=== PATIENT | female | born 1995 | race Caucasian/White ===

== ENCOUNTER 2020-06-30 08:06 | Emergency (ER) | payer OTHER, SELFPAY ==
[2020-06-30 08:20] VITALS: BP 130/66; PULSE 96; RESP 16; TEMP 37.1; O2SAT 100
--- NOTE | 2020-06-30 08:23 | ED.GENADULT ---
HPI - General Adult General Chief complaint: Urogenital-Female Stated complaint: Blood in Urine Time Seen by Provider: 06/30/20 08:24 Source: patient and RN notes reviewed Mode of arrival: ambulatory Limitations: no limitations History of Present Illness HPI narrative: 25-year-old female presents with urinary complaints for 1 day. Dysuria consist of hematuria, hesitation, burning, frequency, and urgency.? No treatment.? Denies fever or chills. No significant pelvic pain. No vaginal discharge.? No concerns for STDs. Exacerbating factors urinating.? Denies or vaginal bleeding. Concerned she might be , LMP 06/07/20. No flank pain. Denies nausea, vomiting, and abdominal pain.? Tolerating liquids well.? Remains active. The patient reports she have not been diagnosed with COVID-19. The patient reports she is not waiting for the results of a COVID-19 lab test. The patient reports she do not have fever, chills, weakness, or fatigue. The patient reports she do not have a new or worsening cough or shortness of breath. Denies chest pain. The patient reports she do not have any rhinorrhea, congestion, sore throat, loss of taste, and diarrhea. Denies recent traveling. Denies concerns for COVID-19 or exposures been home with limited outdoor exposure except for essential household needs and return home. At this time, patient is not suspected of having COVID-19. Some parts of this dictation were generated by voice recognition software and may contain typographical and/or grammatical inaccuracies. Related Data Allergies Allergy/AdvReac Type Severity Reaction Status Date / Time clavulanic acid Allergy Mild HIVES Verified 06/30/20 08:24 Penicillins Allergy Mild HIVES Verified 06/30/20 08:24 amoxicillin Allergy Unknown hives Verified 06/30/20 08:24 Review of Systems Review of Systems: Narrative: CONSTITUTIONAL: Denies fever, chills, sweats. EYES: Denies visual changes, redness, discharge. ENT: Denies rhinorrhea, congestion, sore throat, otalgia. CARDIOVASCULAR: Denies chest pain, palpitations, edema. RESPIRATORY: Denies dyspnea, wheezing, cough. GASTROINTESTINAL: Denies abdominal pain, nausea, vomiting, diarrhea. GENITOURINARY: Complains of dysuria (hesitation, burning, frequency, and urgency), hematuria. Denies abnormal discharge. SKIN: Denies rash or itching. MUSCULOSKELETAL: Denies acute back pain, joint pain, or myalgia. NEUROLOGIC: Denies numbness or focal weakness. PSYCHIATRIC: Denies anxiety or depression. All systems reviewed & are unremarkable except as noted in HPI and below. [facility] Past Medical History Medical History (Updated 06/30/20 @ 08:52 by POLOL Daily) Pyelonephritis UTI (urinary tract infection) Surgical History Surgical History (Updated 06/30/20 @ 08:33 by POLLO Daily) History of adenoidectomy History of tonsillectomy Family History Family History (Updated 06/30/20 @ 08:33 by POLLO Daily) Father Diabetes mellitus Mother Alive and well Social History Social History (Updated 06/30/20 @ 08:34 by POLLO Daily) Smoking status: Never smoker Tobacco type: cigarettes Second hand tobacco smoke exposure: Yes Alcohol intake: never Substance use: never Living arrangements: with family Occupation/Education: unemployed Gender identity (if verbalized by the patient): Female Sexual Orientation (if Verbalized by the Patient): Straight or Heterosexual Comments At time of signature, agree with nurse past medical, surgical, social, and family history.? There is no relevant family history pertinent to the presenting complaint. Exam Narrative: Exam Narrative: GENERAL: This is a well-nourished, well-developed patient, in no apparent distress.? Talks in full sentences and ambulates with steady gait without dyspnea. HEAD: normocephalic, atraumatic. EYES: PERRL. Sclera clear/white. Vision is grossly intact. CARDIOVASCULAR: Regular rate and rhythm
== END 2020-06-30 08:39 | disposition home or self-care (01) ==
PROVIDERS: Emergency Provider Nurse Practitioner Family; PCP Family Medicine
DX: R30.0 Dysuria (principal)
CPT/HCPCS: 81003; 81025; 87077; 87086; 87088; 99213; G0463

== ENCOUNTER 2021-03-24 15:48 | Emergency (ER) | payer OTHER, SELFPAY ==
[2021-03-24 16:10] VITALS: BP 133/80; PULSE 82; RESP 18; TEMP 37.4; O2SAT 100
--- NOTE | 2021-03-24 16:13 | ED.GENADULT ---
HPI - General Adult General Chief complaint: Urogenital-Female Stated complaint: pain when urinating Time Seen by Provider: 03/24/21 16:10 Source: patient and RN notes reviewed Mode of arrival: ambulatory Limitations: no limitations History of Present Illness HPI narrative: 25-year-old female presents with urinary complaints for the past 3 days. ?Phyllis reports recently returning from vacation after swimming and sitting around in a wet swimming suit, now has increasing urgency and burning with urination. ?Dysuria consists of burning, frequency, small amounts of urine, and urgency. ?Azo was taken last today at approximately noon without relief. ?Denies fever. ?No significant pelvic pain. ?No vaginal discharge.? No concerns for STDs. ?Exacerbating factors urinating.? Denies hematuria or vaginal bleeding. ?LMP February 20-, irregular. ?No flank pain. ?Denies nausea, vomiting, and abdominal pain.? Tolerating liquids well.? Remains active. ?The patient reports she has not been diagnosed with COVID-19. ?The patient reports she is not waiting for the results of a COVID-19 lab test. ?The patient reports he does not have chills, weakness, or fatigue. The patient reports he does not have a new or worsening cough or shortness of breath. ?Denies chest pain. ?The patient reports he does not have any rhinorrhea, congestion, loss of taste or smell, sore throat, and diarrhea. Denies recent traveling. ?Denies concerns for COVID-19 or exposures. ?At this time, the patient is not suspected of having COVID-19.?? Some parts of this dictation were generated by voice recognition software and may contain typographical and/or grammatical inaccuracies. Related Data Allergies Allergy/AdvReac Type Severity Reaction Status Date / Time amoxicillin Allergy Mild hives Verified 03/24/21 16:05 clavulanic acid Allergy Mild HIVES Verified 03/24/21 16:05 Review of Systems Review of Systems: Narrative: CONSTITUTIONAL: Denies fever, chills, sweats. EYES: Denies visual changes, redness, discharge. ENT: Denies rhinorrhea, congestion, sore throat, otalgia. CARDIOVASCULAR: Denies chest pain, palpitations, edema. RESPIRATORY: Denies dyspnea, wheezing, cough. GASTROINTESTINAL: Denies abdominal pain, nausea, vomiting, diarrhea. GENITOURINARY: Complains of dysuria (burning, frequency, small amount of urine, and urgency). Denies hematuria, abnormal discharge. SKIN: Denies rash or itching. MUSCULOSKELETAL: Denies acute back pain, joint pain, or myalgia. NEUROLOGIC: Denies numbness or focal weakness. PSYCHIATRIC: Denies anxiety or depression. All systems reviewed & are unremarkable except as noted in HPI and below. [facility] Past Medical History Medical History (Updated 03/24/21 @ 16:28 by POLLO Daily) History of PCOS Pyelonephritis UTI (urinary tract infection) Surgical History Surgical History (Updated 06/30/20 @ 08:33 by POLLO Daily) History of adenoidectomy History of tonsillectomy Family History Family History (Updated 06/30/20 @ 08:33 by POLLO Daily) Father Diabetes mellitus Mother Alive and well Social History Social History (Updated 03/24/21 @ 16:28 by POLLO Daily) Smoking status: Never smoker Tobacco type: cigarettes Second hand tobacco smoke exposure: Yes Alcohol intake: never Substance use: never Living arrangements: with family Occupation/Education: unemployed Gender identity (if verbalized by the patient): Female Sexual Orientation (if Verbalized by the Patient): Straight or Heterosexual Comments At time of signature, agree with the nurse past medical, surgical, social, and family history.? There is no relevant family history pertinent to the presenting complaint. Exam Narrative: Exam Narrative: GENERAL: This is a well-nourished, well-developed patient, in no apparent distress.? Talks in full sentences and ambulates with steady gait without dyspnea. HEAD: Normocephalic, atraumatic. EY
== END 2021-03-24 16:35 | disposition home or self-care (01) ==
PROVIDERS: Emergency Provider Nurse Practitioner Family
DX: R30.0 Dysuria (principal); Z87.440 Personal history of urinary (tract) infections; E28.2 Polycystic ovarian syndrome
CPT/HCPCS: 81003; 87086; 99213; G0463

== ENCOUNTER 2021-04-10 10:41 | Emergency (ER) | payer OTHER, SELFPAY ==
[2021-04-10 10:50] VITALS: BP 133/97; PULSE 119; RESP 18; TEMP 37; O2SAT 99
--- NOTE | 2021-04-10 11:03 | ED.URI ---
HPI - URI/Sore Throat General Chief Complaint: Upper Respiratory Infection Stated Complaint: Chills,Cough,Ear Pain History of Present Illness HPI Narrative: This is a 25 year old unvaccinated female that presents with sinus drainage and coughing states that symptoms started last night with coughing and yellow drainage. Patient states that she has taken some mucinex and tyelnol because she thought she had a fever last night. Patient denies any nausea, vomiting, and or diarrhea Related Data Allergies Allergy/AdvReac Type Severity Reaction Status Date / Time amoxicillin Allergy Mild hives Verified 04/10/21 10:53 clavulanic acid Allergy Mild HIVES Verified 04/10/21 10:53 Review of Systems Review of Systems: CONSTITUTIONAL: Denies fever, chills, or sweats. EYES: Denies visual changes, redness, or discharge. ENT: Reports rhinorrhea, congestion, sore throat, or otalgia. CARDIOVASCULAR:Denies chest pain, palpitations, or edema. RESPIRATORY: Reports cough or dyspnea. GASTROINTESTINAL: Denies abdominal pain, nausea, vomiting, or diarrhea. GENITOURINARY: Denies dysuria or hematuria. SKIN:[Denies rash or itching. MUSCULOSKELETAL:Denies back pain, joint pain, or myalgia. NEUROLOGIC: Denies headache, numbness, or weakness. PSYCHIATRIC:Denies anxiety or depression [facility] Past Medical History Medical History (Updated 04/10/21 @ 11:40 by Mary Robin NP) History of PCOS Pyelonephritis UTI (urinary tract infection) Surgical History Surgical History (Updated 06/30/20 @ 08:33 by POLLO Daily) History of adenoidectomy History of tonsillectomy Family History Family History (Updated 06/30/20 @ 08:33 by POLLO Daily) Father Diabetes mellitus Mother Alive and well Social History Social History (Updated 03/24/21 @ 16:28 by POLLO Daily) Smoking status: Never smoker Tobacco type: cigarettes Second hand tobacco smoke exposure: Yes Alcohol intake: never Substance use: never Gender identity (if verbalized by the patient): Female Comments At time as signature, I have reviewed and agree with nursing past medical, social, surgical and family history. Please see nursing chart for further information. There is no relevant family history pertinent to the presenting complaint. Exam Narrative: GENERAL:Well-appearing, well-nourished, and in no acute distress. HEAD:Normocephalic, atraumatic. EYES: PERRLA and EOMI. ENT: Nares clear, moderate rhinorrhea slight pharyngeal erythema. Mucous membranes moist. Enlarged tonsils bilaterally NECK: Supple. CHEST: Clear to auscultation. No respiratory distress. HEART: Regular rate and rhythm. Normal peripheral pulses. ABDOMEN: Soft, nontender, normal active bowel sounds. EXTREMITIES: Normal range of motion. No edema. SKIN: Warm, dry, no rash. NEURO: No focal deficits. Alert and oriented x3. Course Vital Signs Vital signs: Vital Signs Temperature 98.6 F 04/10/21 10:50 Pulse Rate 119 H 04/10/21 10:50 Respiratory Rate 18 04/10/21 10:50 Blood Pressure 133/97 H 04/10/21 10:50 Pulse Oximetry 99 04/10/21 10:50 Temperature 98.6 F 04/10/21 10:50 Pulse Rate 119 H 04/10/21 10:50 Respiratory Rate 18 04/10/21 10:50 Blood Pressure 133/97 H 04/10/21 10:50 Pulse Oximetry 99 04/10/21 10:50 MDM - URI/Sore Throat MDM Narrative Medical decision making narrative: negative strep Influenza negative Lab Data Labs: Influenza A Screen Negative Reference Range: Negative Influenza B Screen Negative Reference Range: Negative Strep Screen Presumptive Negative *(Reference Range: Negative)* Discharge Plan Discharge Clinical Impression: Shortness of breath Upper respiratory infection Qualifiers: URI type: unspecified viral URI Qualified C
== END 2021-04-10 11:49 | disposition home or self-care (01) ==
PROVIDERS: Emergency Provider Nurse Practitioner Family; PCP Family Medicine
DX: R06.02 Shortness of breath (principal); J06.9 Acute upper respiratory infection, unspecified; J02.9 Acute pharyngitis, unspecified; E28.2 Polycystic ovarian syndrome
CPT/HCPCS: 87081; 87804; 87880; 99213; G0463

== ENCOUNTER 2021-06-18 15:50 | Emergency (ER) | payer OTHER, SELFPAY ==
[2021-06-18 16:10] VITALS: BP 112/86; PULSE 85; RESP 16; TEMP 36.5; O2SAT 100
--- NOTE | 2021-06-18 16:39 | ED.FEMALEGU ---
HPI - Female Genitourinary General Chief complaint: Urogenital-Female Stated complaint: UTI Time Seen by Provider: 06/18/21 16:39 Source: patient Mode of arrival: ambulatory Limitations: no limitations History of Present Illness HPI Narrative: Bridget Lindsey is a 25-year-old female is complaining of dysuria started 1 week ago. 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 History of uti- 10 this year alone- does all the recommended uti preventive activities- discussed seeing a urologist for evaluation Related Data Allergies Allergy/AdvReac Type Severity Reaction Status Date / Time amoxicillin Allergy Mild hives Verified 06/18/21 16:54 clavulanic acid Allergy Mild HIVES Verified 06/18/21 16:54 Review of Systems Review of Systems: CONSTITUTIONAL: Denies fever, chills, sweats. EYES: Denies visual changes, redness, discharge. ENT: Denies rhinorrhea, congestion, sore throat, otalgia. CARDIOVASCULAR: Denies chest pain, palpitations, edema. RESPIRATORY: Denies dyspnea, wheezing, cough GASTROINTESTINAL: Denies abdominal pain, nausea, vomiting, diarrhea. GENITOURINARY: Has dysuria, hematuria, abnormal discharge SKIN: Denies rash or itching. NEUROLOGIC: Denies numbness, or focal weakness. PSYCHIATRIC: Denies anxiety or depression. PMFSH Past Medical History Medical History History of PCOS Pyelonephritis UTI (urinary tract infection) Surgical History Surgical History History of adenoidectomy History of tonsillectomy Family History Family History Father Diabetes mellitus Mother Alive and well Social History Social History (Updated 06/18/21 @ 16:40 by Daina Torre CNP) Smoking status: Never smoker Second hand tobacco smoke exposure: Yes Alcohol intake: never Substance use: never Gender identity (if verbalized by the patient): Female Sexual Orientation (if Verbalized by the Patient): Straight or Heterosexual Comments At time of signature, I agree with nursing past medical, surgical, social and family history. There is no relevant family history pertinent to the presenting complaint. Exam Narrative: GENERAL: This is a well-nourished, well-developed patient, in mild distress. HEAD: normocephalic, atraumatic. EYES: . Sclera clear/white. Vision is grossly intact. EARS: External ears normal. Hearing grossly intact. NOSE: External nose normal without nasal discharge, nares without redness, no rhinorrhea. THROAT: Mucous membranes moist, NECK: Neck supple, CARDIOVASCULAR: Regular rate and rhythm without murmurs, gallops, or rubs. RESPIRATORY: Clear to auscultation. Breath sounds equal bilaterally. No wheezes, rales, or rhonchi. GASTROINTESTINAL: Abdomen soft, states has random CVA pain in both sides SKIN: warm, intact with no suspicious lesions or rash, good texture and turgor. NEURO: awake, alert, and oriented to person, place and time. There were no obvious focal neurologic abnormalities. Steady gait EXTREMITIES: Normal range of motion. BACK: Nontender without deformity Course Course Emergency Course: Patient here for treatment of dysuriax 7 days - numerous UTIs in the past states she is had about 10 of them this year [place] Start on Keflex 500 mg 1 twice daily x5 days- referral to urology Vital Signs Vital signs: Vital Signs Temperature 97.7 F 06/18/21 16:10 Pulse Rate 85 06/18/21 16:10 Respiratory Rate 16 06/18/21 16:10 Blood Pressure 112/86 06/18/21 16:10 Pulse Oximetry 100 06/18/21 16:10 Temperature 97.7 F 06/18/21 16:10 Pulse Rate 85 06/18/21 16:10 Respiratory Rate 16 06/18/21 16:10 Blood Pressure 112/86 06/18/21 16:10 Pulse Oximetry 100 06/18/21 16:10 MDM - Female Genitourinary Differential Diagnosis Differential diagnosis: Likely urinary tract infection, cystitis and o
== END 2021-06-18 17:10 | disposition home or self-care (01) ==
PROVIDERS: Emergency Provider Nurse Practitioner
DX: R30.0 Dysuria (principal); E28.2 Polycystic ovarian syndrome
CPT/HCPCS: 81003; 87086; 87088; 99213; G0463

== ENCOUNTER 2021-08-12 12:45 | Emergency (ER) | payer OTHER, SELFPAY ==
[2021-08-12 12:54] VITALS: BP 131/79; PULSE 69; RESP 18; TEMP 37.1; O2SAT 100
--- NOTE | 2021-08-12 12:57 | ED.FEMALEGU ---
HPI - Female Genitourinary General Chief complaint: Urogenital-Female Stated complaint: UTI Time Seen by Provider: 08/12/21 12:57 Source: patient and RN notes reviewed Mode of arrival: ambulatory Limitations: no limitations History of Present Illness HPI Narrative: 26-year-old female presents to the [facility] with complaints of I think I have a UTI. Reports symptoms for the last 3 days. Reports multiple UTIs in the past. Had been seen at [facility] in March, April and June with similar symptoms and microbiology does not show any bacteria in her urine. Has not followed up with urology or primary. Denies possibility of an STD. Discussed previous microbiology reports with the patient. Discussed other possibilities to include but not limited to vaginal infection, interstitial cystitis. Patient denies any significant abdominal pain, nausea, vomiting or fevers. Last menstrual period was 30 July MD elicited complaint: UTI Related Data Allergies Allergy/AdvReac Type Severity Reaction Status Date / Time amoxicillin Allergy Mild hives Verified 08/12/21 12:52 clavulanic acid Allergy Mild HIVES Verified 08/12/21 12:52 Review of Systems Review of Systems: All systems reviewed & are unremarkable except as noted in HPI and below Constitutional: Constitutional: Reports no additional constitutional complaints, Denies chills and Denies fatigue Eyes: Eyes: Reports no additional eye complaints ENT: Reports system reviewed and no additional complaints, except as documented Cardiovascular: Cardiovascular: Reports no additional cardiovascular complaints and Denies chest pain Respiratory: Respiratory: Reports no additional respiratory complaints, Denies cough and Denies dyspnea Gastrointestinal: Gastrointestinal: Reports as per HPI, Reports abdominal pain (Pelvic cramping), Denies nausea and Denies vomiting Genitourinary: Genitourinary: Reports as per HPI and Reports dysuria Musculoskeletal: Musculoskeletal: Reports no additional musculoskeletal complaints Integumentary/Breasts: Skin/Breast: Reports system reviewed and no additional complaints, except as docu Neurologic: Reports system reviewed and no additional complaints, except as documented Psychiatric: Psychiatric: Reports no additional psychiatric complaints Allergic/Immunologic: Allergic/Immunologic: Reports no additional allergic/immunologic complaints [facility] Past Medical History Medical History History of PCOS Pyelonephritis UTI (urinary tract infection) Surgical History Surgical History History of adenoidectomy History of tonsillectomy Family History Family History Father Diabetes mellitus Mother Alive and well Social History Social History Smoking status: Never smoker Second hand tobacco smoke exposure: Yes Alcohol intake: never Substance use: never Gender identity (if verbalized by the patient): Female Sexual Orientation (if Verbalized by the Patient): Straight or Heterosexual Comments At the time of my signature, I reviewed and agree with the nursing past medical, surgical, social, and family history. There is no relevant family history pertinent to the patient complaint. Exam Const: General: healthy appearing, no acute distress and alert Nutritional Appearance: well nourished Orientation/consciousness: patient oriented x3 Limitations: no limitations HENMT: Head: normal to inspection Ears: external ears normal Eyes: Pupils: Equal, round and reactive pupils present Neck: Neck: normal visual inspection, no lymphadenopathy and no meningeal signs Chest: Chest palpation & inspection: normal inspection of the chest Resp: Effort & Inspection: normal respiratory effort and no use of accessory muscles Auscultation: clear to a
== END 2021-08-12 13:10 | disposition home or self-care (01) ==
PROVIDERS: Emergency Provider Nurse Practitioner; PCP Family Medicine
DX: R30.0 Dysuria (principal); E28.2 Polycystic ovarian syndrome
CPT/HCPCS: 81003; 87086; 99213; G0463

== ENCOUNTER → 2022-02-28 15:42 | Outpatient (CLI) | payer OTHER, SELFPAY ==
--- NOTE | ~2022-02-28 | US_ITS ---
EXAMINATION: US OB transvaginal DATE: 02/28/2022 15:59 INDICATION: First trimester dating TECHNIQUE: Real-time pelvic transabdominal and transvaginal ultrasound was performed. COMPARISON: None. FINDINGS: The uterus measures 8.5 x 6.1 x 7.2 cm. There is an intrauterine gestational sac. A yolk s ac is identified. heart motion is identified measuring 169 beats per minute (bpm) by M-mode Dop pler. The crown rump length measures 3.0 cm , which correlates with an estimated gestational ag e of 10 weeks and 0 day(s) (+/-) 6 day(s). The ovaries are not visualized however no adnexal abnormality is seen. There is no free fluid in the pelvis. IMPRESSION: 1. Live intrauterine with an estimated gestational age of 10 weeks and 0 day(s) (+/-) 6 day (s) and an estimated delivery date of 09/26/2022. Reviewed, dictated and finalized at location F. IMPRESSION: 1. Live intrauterine with an estimated gestational age of 10 weeks an d 0 day(s) (+/-) 6 day(s) and an estimated delivery date of 09/26/2022.
== END ==
PROVIDERS: PCP Family Medicine; Visit Provider Advanced Practice Midwife
DX: Z36.87 Encounter for antenatal screening for uncertain dates (principal); Z3A.10 10 weeks gestation of pregnancy
CPT/HCPCS: 76817

== ENCOUNTER 2022-05-07 16:01 | Outpatient (CLI) | payer OTHER, SELFPAY ==
--- NOTE | ~2022-05-07 | US_ITS ---
US OB /maternal detail DATE: 05/07/2022 18:05 INDICATION: anatomy screen TECHNIQUE: Real-time imaging and Doppler analysis COMPARISON: 02/28/2022 obstetrical ultrasound examination FINDINGS: Live barron intrauterine gestation, fetus in transverse lie, heart rate of 144 bpm . Subjectively normal amount of amniotic fluid. Anterior placenta., Lower margin of the placenta is s ituated at the internal os. Cervical length measures 4.6 cm. Because of position the nose and lips are not well demonstrated. cerebral ventricles and cerebellum and cisterna magna are normal. Four-chamber heart. The lungs demonstrated in the stomach and urinary bladder. No hydronephrosis. Three-vessel umbilic al cord with normal insertion at abdominal wall. Biparietal diameter 4.16 cm; 18 weeks 4 days Head circumference 16.64 cm; 19 weeks 2 days Abdominal circumference 14.01 cm; 19 weeks 3 days) Femur length 3.26 cm; 20 weeks 1 day Composite age by Hadlock formula based upon current measurements would be 19 weeks 3 days +/- 1 week 2 days, with EVENS of 09/28/2022, compared to 09/26/2022 by LMP. Estimated weight is 306.6 +/- 46 g. Estimated weight GP: 43.3% Head circumference/abdominal circumference 1.19, within normal range of 1.08-1.26. IMPRESSION: Transverse lie Anterior placenta, lower margin situated at the internal os Estimated age of 19 weeks 3 days +/- 1 week 2 days, with EVENS of 09/28/2022 Estimated weight of 306.6 +/- 46 g Reviewed, dictated and finalized at Location A. Reviewed, dictated and finalized at location B.
== END 2022-05-07 16:02 | disposition home or self-care (01) ==
PROVIDERS: PCP Family Medicine; Visit Provider Advanced Practice Midwife
DX: Z36.9 Encounter for antenatal screening, unspecified (principal); O32.2XX0 Maternal care for transverse and oblique lie, not applicable or unspecified; Z3A.19 19 weeks gestation of pregnancy; O43.892 Other placental disorders, second trimester
CPT/HCPCS: 76805

== ENCOUNTER 2022-06-06 15:55 | Outpatient (CLI) | payer OTHER, SELFPAY ==
--- NOTE | ~2022-06-06 | US_ITS ---
EXAMINATION: US OB follow up DATE: 06/06/2022 16:51 INDICATION: Low-lying placenta during second trimester TECHNIQUE: Real-time ultrasound of the pelvis was performed. The interpreting radiologist was not pre sent for the study. COMPARISON: 05/07/2022 FINDINGS: There is a single living fetus in vertex presentation. The placenta is anterior and 5.3 cm from the internal cervical os. The cervical length is 3.6 cm. cardiac activity and moveme nt are noted. heart rate is 146 beats per minute (bpm). The amniotic fluid index is subjectivel y normal. The following biometric data were obtained: Biparietal diameter (BPD): 5.7 cm; head circumference (HC): 21.3 cm; abdominal circumference (AC): 18 .9 cm; femur length (FL): 4.6 cm. These measurements are concordant. Estimated weight is 676 g +/- 101 g, which correlates with the 53rd percentile when 09/26/2022 i s used as estimated date of delivery. As single measurements, these parameters are each equal to the following estimated gestational ages w ith ranges of +/- 2 standard deviations: BPD: 23 weeks 4 days +/- 1 weeks 5 days. HC: 23 weeks 2 days +/- 1 weeks 3 days. AC: 23 weeks 5 days +/- 2 weeks 0 days. FL: 25 weeks 2 days +/- 2 weeks 1 days. estimated gestational age based solely on measurements from this exam is 24 weeks 0 days +/- 1 weeks 5 days. IMPRESSION: 1. Single living fetus in vertex presentation. 2. Estimated weight is 676 g +/- 101 g, which correlates with the 53rd percentile when 3 is used as estimated date of delivery. 3. Anterior placenta 5.3 cm from the internal cervical os. Reviewed, dictated and finalized at location A. IMPRESSION: 1. Single living fetus in vertex presentation. 2. Estimated weight is 676 g +/- 101 g, which correlates with the 53rd pe rcentile when 09/26/2022 is used as estimated date of delivery. 3. Anterior placenta 5.3 cm from the internal cervical os.
== END 2022-06-06 15:56 | disposition home or self-care (01) ==
PROVIDERS: PCP Family Medicine; Visit Provider Obstetrics & Gynecology Gynecology
DX: O44.42 Low lying placenta NOS or without hemorrhage, second trimester (principal); Z3A.24 24 weeks gestation of pregnancy
CPT/HCPCS: 76816

== ENCOUNTER 2022-07-09 07:06 | Outpatient (CLI) | payer OTHER, SELFPAY ==
[2022-07-09 08:50] LABS: Glucose 1 Hour PP 50gm Dose 161 mg/dL
[2022-07-09 09:32] LABS: HIV 1/2 Ab P24 Ag Result Negative (Negative)
[2022-07-09 10:26] LABS: Vitamin D 25 Hydroxy 31.3 ng/mL
[2022-07-09 11:49] LABS: Hematocrit 33.5 % (37.0-47.0); Hemoglobin 10.6 g/dL (12.0-15.0)
[2022-07-11 16:41] LABS: Total Protein Urine 24 Hr 234 mg/24hr (28-141); Total Protein Urine Random 13 mg/dL; Total Volume 24 Hour Urine 1800 ml
== END 2022-07-09 07:07 | disposition home or self-care (01) ==
PROVIDERS: PCP Family Medicine; Visit Provider Advanced Practice Midwife
DX: Z36.9 Encounter for antenatal screening, unspecified (principal); Z3A.00 Weeks of gestation of pregnancy not specified
CPT/HCPCS: 36415; 81050; 82306; 82947; 83036; 84156; 85014; 85018; 86703; G0432

== ENCOUNTER 2022-07-09 14:04 | Outpatient (RCR) | payer OTHER, SELFPAY ==
[2022-07-09 14:53] LABS: Alanine Aminotransferase 14 U/L (6-35); Albumin Level 3.6 g/dL (3.5-5.1); Alkaline Phosphatase 83 U/L (38-126); Anion Gap 8 mmol/L (8-16); Aspartate Amino Transferase 10 U/L (14-36); Bilirubin,Total 0.4 mg/dL (0.2-1.3); Blood Urea Nitrogen 3 mg/dL (7-17); Calcium 8.3 mg/dL (8.4-10.2); Carbon Dioxide 25 mmol/L (22-30); Chloride 104 mmol/L (98-107); Estimated Glomerular Filt Rate > 60; Glucose 97 mg/dL (65-110); Potassium 3.4 mmol/L (3.4-5.0); Sodium 137 mmol/L (137-145); Uric Acid 2.5 mg/dL (2.5-7.5)
[2022-07-10] MEDS: RHO(D) IMMUNE GLOBULIN 300 MCG/2 ML SYRINGE IM (09:28)
== END 2022-10-07 23:59 | disposition home or self-care (01) ==
LOC: ANHLAB 14:04
PROVIDERS: PCP Family Medicine; Visit Provider Obstetrics & Gynecology Gynecology
DX: Z29.13 Encounter for prophylactic Rho(D) immune globulin (principal); O36.0190 Maternal care for anti-D [Rh] antibodies, unspecified trimester, not applicable or unspecified; Z3A.00 Weeks of gestation of pregnancy not specified
CPT/HCPCS: 36415; 80053; 84550; 85461; 86850; 86900; 86901; 90384; 96372; J2790

== ENCOUNTER 2022-07-11 07:01 | Outpatient (CLI) | payer OTHER, SELFPAY ==
[2022-07-11 07:33] LABS: Glucose Fasting Gestational 90 mg/dL (>/=95)
[2022-07-11 09:26] LABS: Glucose 1 Hour Gest 152 mg/dL (>/=180)
[2022-07-11 10:42] LABS: Glucose 2 Hour Gest 112 mg/dL (>/= 155)
[2022-07-11 11:52] LABS: Glucose 3 Hour Gest 83 mg/dL (>/=140)
== END 2022-07-11 07:02 | disposition home or self-care (01) ==
PROVIDERS: PCP Family Medicine; Visit Provider Obstetrics & Gynecology Gynecology
DX: O99.810 Abnormal glucose complicating pregnancy (principal); Z3A.00 Weeks of gestation of pregnancy not specified
CPT/HCPCS: 36415; 82951; 82952

== ENCOUNTER 2022-08-20 17:22 | Emergency (ER) | payer OTHER, SELFPAY ==
[2022-08-20 17:50] VITALS: BP 134/80; PULSE 104; RESP 14; TEMP 36.9; O2SAT 100
--- NOTE | 2022-08-20 18:30 | ED.URI ---
HPI - URI/Sore Throat General Chief Complaint: Upper Respiratory Infection Stated Complaint: cold/flu sx Time Seen by Provider: 08/20/22 18:30 Source: patient, RN notes reviewed and old records reviewed Mode of arrival: ambulatory Limitations: no limitations History of Present Illness HPI Narrative: 27 year old female presents to the [facility] with complaints of scratchy throat, upper respiratory congestion. States it started last night. No treatment prior to arrival. States that she was exposed to someone with influenza a. Patient states she is 35 weeks , patient states she has no concern for issues at this time Related Data Home Medications Medication Instructions Recorded Confirmed ergocalciferol (vitamin D2) 1,250 1,250 mcg PO 2XW 08/20/22 08/20/22 mcg (50,000 unit) capsule Allergies Allergy/AdvReac Type Severity Reaction Status Date / Time amoxicillin Allergy Mild hives Verified 08/20/22 17:50 clavulanic acid Allergy Mild HIVES Verified 08/20/22 17:50 Review of Systems Review of Systems: All systems reviewed & are unremarkable except as noted in HPI and below Constitutional: Constitutional: Reports no additional constitutional complaints and Denies fever(s) Eyes: Eyes: Reports no additional eye complaints ENT: Reports as per HPI, Reports nasal congestion and Denies sore throat Cardiovascular: Cardiovascular: Reports no additional cardiovascular complaints, Denies chest pain and Denies dyspnea Respiratory: Respiratory: Reports no additional respiratory complaints, Denies chest congestion, Denies cough and Denies dyspnea Gastrointestinal: Gastrointestinal: Reports no additional gastrointestinal complaints, Denies abdominal pain, Denies nausea and Denies vomiting Musculoskeletal: Musculoskeletal: Reports no additional musculoskeletal complaints Integumentary/Breasts: Skin/Breast: Reports system reviewed and no additional complaints, except as docu Neurologic: Reports system reviewed and no additional complaints, except as documented Psychiatric: Psychiatric: Reports no additional psychiatric complaints Allergic/Immunologic: Allergic/Immunologic: Reports no additional allergic/immunologic complaints PMFSH Past Medical History Medical History History of PCOS Pyelonephritis UTI (urinary tract infection) Surgical History Surgical History History of adenoidectomy History of tonsillectomy Family History Family History Father Diabetes mellitus Mother Alive and well Social History Social History Smoking status: Never smoker Second hand tobacco smoke exposure: Yes Alcohol intake: never Substance use: never Lack of Transportation: No Lack of Food: Never True Current Housing: I Have Housing Concerned About Future Housing: No Difficulty Paying Gas/Electric Bills: No Difficulty Paying for Meds: No Currently Unemployed: No Education: Associate Degree Difficulty w/ Childcare or Family Care: No Gender identity (if verbalized by the patient): Female Sexual Orientation (if Verbalized by the Patient): Straight or Heterosexual Comments At the time of my signature, I reviewed and agree with the nursing past medical, surgical, social, and family history. There is no relevant family history pertinent to the patient complaint. Exam Const: General: cooperative, healthy appearing, comfortable, no acute distress, well developed, alert and well nourished Nutritional Appearance: well nourished Orientation/consciousness: patient oriented x3 Limitations: no limitations HENMT: Head: normal to inspection Ears: hearing grossly normal bilaterally and external ears normal Face/Nose/Sinus: Normal external nose present, Normal nares present, Normal nasa
== END 2022-08-20 18:53 | disposition home or self-care (01) ==
PROVIDERS: Emergency Provider Nurse Practitioner; PCP Family Medicine
DX: O99.513 Diseases of the respiratory system complicating pregnancy, third trimester (principal); Z3A.35 35 weeks gestation of pregnancy; J06.9 Acute upper respiratory infection, unspecified; O99.283 Endocrine, nutritional and metabolic diseases complicating pregnancy, third trimester; E28.2 Polycystic ovarian syndrome
CPT/HCPCS: 87804; 99213; G0463

== ENCOUNTER 2022-09-03 11:03 | Outpatient (CLI) | payer OTHER, SELFPAY ==
[2022-09-03 11:30] VITALS: BP 126/87; PULSE 105
[2022-09-03 11:41] LABS: Basophils Percent Auto 0.3 % (0.2-1.2); Eosinophils Absolute Auto 0.1 K/mm3 (0-0.3); Eosinophils Percent Auto 0.9 % (0-4.4); Hemoglobin 11.6 g/dL (12.0-15.0); Immature Granulocyte Absolute 0.06 K/mm3 (0.00-0.031); Immature Granulocyte Percent A 0.5 % (0-0.5); Lymphocytes Absolute Auto 2.09 K/mm3 (0.9-3.2); Lymphocytes Percent Auto 17.9 % (18.3-44.2); Mean Corpuscular HGB Conc 32.2 g/dl (32-36); Mean Corpuscular Hemoglobin 27.1 pg (26-34); Mean Corpuscular Volume 84.1 fl (80-100); Monocytes Absolute Auto 0.9 K/mm3 (0.1-0.6); Monocytes Percent Auto 7.3 % (2.6-8.5); Neutrophils Absolute Auto 8.5 K/mm3 (1.3-6.7); Neutrophils Percent Auto 73.1 % (45.5-73.1); Platelet Count Result 326 k/mm3 (150-375); Red Blood Count 4.28 M/mm3 (4.2-5.4); Red Cell Distribution Width 13.3 % (11.5-14.5); White Blood Count 11.7 K/mm3 (4.5-10.0)
[2022-09-03 11:42] LABS: Add Urine Microscopic? YES; Appearance Urine Clear (Clear); Bilirubin Urine 1+ (Negative); Blood Urine Negative (Negative); Color Urine Yellow (Yellow); Glucose Urine UA Negative (Negative); Ketones Urine Trace mg/dL (Negative); Leukocyte Esterase Ur Negative LEU/UL (NEGATIVE); Nitrate Urine Negative (Negative); Protein Urine 1+ mg/dL (Negative); Specific Grav Ur 1.025 (1.001-1.035); pH Urine 6.5 (5.0-9.0)
[2022-09-03 11:45] VITALS: BP 120/81; PULSE 94
[2022-09-03 11:47] LABS: Bacteria Urine Trace /hpf; Mucus Urine Heavy /lpf; Squamous Epithelial Cell Urine Few /hpf (Few)
[2022-09-03 11:51] LABS: Alanine Aminotransferase 23 U/L (6-35); Albumin Level 3.7 g/dL (3.5-5.1); Alkaline Phosphatase 168 U/L (38-126); Anion Gap 6 mmol/L (8-16); Aspartate Amino Transferase 14 U/L (14-36); Bilirubin,Total 0.8 mg/dL (0.2-1.3); Blood Urea Nitrogen 4 mg/dL (7-17); Calcium 8.7 mg/dL (8.4-10.2); Carbon Dioxide 20 mmol/L (22-30); Chloride 106 mmol/L (98-107); Estimated Glomerular Filt Rate > 60; Glucose 82 mg/dL (65-110); Potassium 3.9 mmol/L (3.4-5.0); Sodium 132 mmol/L (137-145)
[2022-09-03 12:00] VITALS: BP 120/85; PULSE 91
[2022-09-03 12:12] LABS: Total Protein Urine Random < 5 mg/dL; Ur Ttl Prot Creatinine Ratio < 0.01 mg/mg (0-0.20)
[2022-09-03 12:15] VITALS: BP 133/76; PULSE 79
[2022-09-03 12:30] VITALS: BP 128/79; PULSE 75
== END 2022-09-03 12:45 | disposition home or self-care (01) ==
LOC: ANHOBOP 11:11 → ANHOBPP 11:11
PROVIDERS: Advanced Practice Midwife; PCP Family Medicine; Visit Provider Obstetrics & Gynecology Gynecology
DX: O13.9 Gestational [pregnancy-induced] hypertension without significant proteinuria, unspecified trimester (principal); Z3A.00 Weeks of gestation of pregnancy not specified
CPT/HCPCS: 36415; 59025; 80053; 81001; 82570; 84156; 84550; 85025; 87086; 87088; 99199

== ENCOUNTER 2022-09-04 11:30 | Outpatient (CLI) | payer OTHER, SELFPAY ==
[2022-09-04 12:39] LABS: Collection Time Urine 24 HOURS
[2022-09-04 12:59] LABS: Total Protein Urine Random 12 mg/dL
[2022-09-04 13:00] LABS: Total Protein Urine 24 Hr 192 mg/24hr (28-141); Total Volume 24 Hour Urine 1600 ml
[2022-09-04 13:01] LABS: Total Volume 24 Hour Urine 1600 ml
[2022-09-04 13:05] LABS: Creatinine Urine 93.3 mg/dL
[2022-09-04 13:26] LABS: Creatinine Clearance Urine 174.5 ml/min (75-125); Patient Weight 215 Lbs
== END 2022-09-04 11:31 | disposition home or self-care (01) ==
LOC: ANHOBOP 11:43
PROVIDERS: PCP Family Medicine; Visit Provider Obstetrics & Gynecology Gynecology
DX: O13.9 Gestational [pregnancy-induced] hypertension without significant proteinuria, unspecified trimester (principal); Z3A.00 Weeks of gestation of pregnancy not specified
CPT/HCPCS: 81050; 82575; 84156

== ENCOUNTER 2022-09-10 16:51 | Inpatient (IN) | payer OTHER, SELFPAY ==
[2022-09-10] VITALS (12 sets, daily range): BP systolic 132–142; BP diastolic 73–97; PULSE 83–127; RESP 20; TEMP 36.9–37.1; BMI 34.9
--- NOTE | 2022-09-10 17:29 | WPDANESEPP ---
Anes - Eval Pre Procedure Procedure: Labor epidural Date/Time: 09/10/22 17:29 Surgeon: Froylan Preop Diagnosis: Abd pain with contractions Pre Op Diagnosis: IOL Patient Data Age: 27 Gender: F Height: Weight: Allergies Allergy/AdvReac Type Severity Reaction Status Date / Time amoxicillin Allergy Mild hives Verified 08/28/22 12:33 clavulanic acid Allergy Mild HIVES Verified 08/28/22 12:33 Home Medications Medication Instructions Recorded Confirmed Type ergocalciferol (vitamin D2) 1,250 1,250 mcg PO 2XW 08/20/22 08/20/22 History mcg (50,000 unit) capsule ferrous sulfate 325 mg (65 mg 325 mg PO DAILY 08/28/22 08/28/22 History iron) tablet,delayed release prenat.vits,paulette,dvf-[id number] 1 tablet PO DAILY 08/28/22 08/28/22 History valacyclovir 500 mg tablet 500 mg PO BID 09/10/22 09/10/22 History Patient hx anesthesia problems: none Family hx anesthesia problems: none Results Review: All pre-operative results and documents have been reviewed as part of the pre-operative evaluation. [facility] Past Medical History Medical History History of PCOS PIH ( induced hypertension) Pyelonephritis UTI (urinary tract infection) Surgical History Surgical History History of adenoidectomy History of tonsillectomy Family History Family History Father Diabetes mellitus Mother Alive and well Grandparent Colon cancer Grandparent Breast cancer in female Social History Social History Smoking status: Never smoker Second hand tobacco smoke exposure: Yes Alcohol intake: never Substance use: never Lack of Transportation: No Lack of Food: Never True Current Housing: I Have Housing Concerned About Future Housing: No Difficulty Paying Gas/Electric Bills: No Difficulty Paying for Meds: No Currently Unemployed: No Education: Associate Degree Difficulty w/ Childcare or Family Care: No Gender identity (if verbalized by the patient): Female Sexual Orientation (if Verbalized by the Patient): Straight or Heterosexual Spiritual care concerns: No Exam Day of Procedure 09/10/22 17:29 Patient weight: overweight Airway: Mallampati scale class II
--- NOTE | 2022-09-10 17:33 | LDADM ---
This patient, Phyllis Lindsey, was admitted to Labor/Delivery/Recovery 104 on 09/10/22 at 16:51. Plans for labor, pain management and were discussed with patient. Patient/family oriented to hospital policies and general routines including ID bracelet, bed and alarms, visiting hours, pain management, procedures, bathroom and other care routines, personal items, smoking policy, room service/diet and guest tray routines, security routines, and visiting hours. Patient/Family are encouraged to report perceived risks to care and to ask questions if they do not understand what they are told or what they should do. See OBIX for further documentation.
[2022-09-10 17:50] LABS: Basophils Percent Auto 0.3 % (0.2-1.2); Eosinophils Absolute Auto 0.1 K/mm3 (0-0.3); Eosinophils Percent Auto 0.6 % (0-4.4); Hematocrit 33.8 % (37.0-47.0); Hemoglobin 11.1 g/dL (12.0-15.0); Immature Granulocyte Absolute 0.03 K/mm3 (0.00-0.031); Immature Granulocyte Percent A 0.3 % (0-0.5); Lymphocytes Absolute Auto 1.63 K/mm3 (0.9-3.2); Lymphocytes Percent Auto 14.2 % (18.3-44.2); Mean Corpuscular HGB Conc 32.8 g/dl (32-36); Mean Corpuscular Hemoglobin 27.6 pg (26-34); Mean Corpuscular Volume 84.1 fl (80-100); Mean Platelet Volume 11.7 fl (7.4-10.4); Monocytes Absolute Auto 0.7 K/mm3 (0.1-0.6); Monocytes Percent Auto 6.2 % (2.6-8.5); Neutrophils Percent Auto 78.4 % (45.5-73.1); Platelet Count Result 278 k/mm3 (150-375); Red Blood Count 4.02 M/mm3 (4.2-5.4); Red Cell Distribution Width 14.2 % (11.5-14.5); White Blood Count 11.5 K/mm3 (4.5-10.0)
[2022-09-10] MEDS: DINOPROSTONE 10 MG VAG INSERT VAGINAL (17:55)
[2022-09-10 18:02] LABS: Alanine Aminotransferase 16 U/L (6-35); Albumin Level 3.6 g/dL (3.5-5.1); Alkaline Phosphatase 164 U/L (38-126); Anion Gap 7 mmol/L (8-16); Aspartate Amino Transferase 13 U/L (14-36); Blood Urea Nitrogen 5 mg/dL (7-17); Calcium 8.7 mg/dL (8.4-10.2); Carbon Dioxide 22 mmol/L (22-30); Chloride 105 mmol/L (98-107); Estimated CRCL calculation 204 ml/min; Estimated Glomerular Filt Rate > 60; Glucose 117 mg/dL (65-110); Potassium 3.3 mmol/L (3.4-5.0); Sodium 134 mmol/L (137-145); Uric Acid 4.6 mg/dL (2.5-7.5)
[2022-09-10 18:22] LABS: Creatinine Urine 316.8 mg/dL
[2022-09-10 19:23] LABS: Total Protein Urine Random < 5 mg/dL
[2022-09-10 19:24] LABS: Ur Ttl Prot Creatinine Ratio < 0.02 mg/mg (0-0.20)
[2022-09-11] VITALS (231 sets, daily range): BP systolic 93–160; BP diastolic 47–104; PULSE 57–173; RESP 18; TEMP 36.3–37.2; O2SAT 79–100
[2022-09-11] MEDS: fentaNYL CITRATE INJ (*CRX) 100 MCG/2 ML VIAL 50 MCG IV PUSH ×2 (02:25→04:04)
[2022-09-11] MEDS: ONDANSETRON INJ 4 MG/2 ML VIAL IV PUSH (02:25)
[2022-09-11] MEDS: LACTATED RINGERS 1,000 ML 125 ML IV CONT ×3 (03:02→10:24)
--- NOTE | 2022-09-11 07:09 | WPDOBADMIT ---
Obstetrics - Admit Note Admission Note: record reviewed. No pertinent additions to the history and/or any subsequent changes in the physical findings that are not consistent with the expected course of the were found. Additions to the history and/or subsequent changes in the physical findings follow. gHTN
--- NOTE | 2022-09-11 07:26 | PM.OBPNLAB ---
Pain Control Date/time seen: 09/11/22 07:20 Pain control: tolerating well and epidural Contractions Monitor mode: External Contraction pattern: Irregular Contraction intensity: Moderate Status status: Category l Assessment and Plan Assessment: induction ongoing Comments: Phyllis comfortable with epidural infusing. Discussed plan of care. Given recent SVE of 1.5/50/-2 per RN, discussed limon balloon placement. Pt and spouse agreeable. Limon catheter inserted into inner cervical os using stylette. Inflated with 60ml sterile saline and tubing securred to pt's thigh. If contractions space out and oxytocin is indicated, would start at that time. Plan for AROM after limon balloon is expelled. Anticipate vaginal .
--- NOTE | 2022-09-11 12:41 | P.PNOB_ITS ---
Pain Control Date/time seen: 09/11/22 12:30 Pain control: tolerating well and epidural Pelvic Exam Dilation (cm): 5 Effacement (%): 75 station: -2 Amniotic membrane status: Intact Contractions Monitor mode: External Contraction frequency: 3 Contraction pattern: Irregular Contraction intensity: Moderate Status status: Category l Assessment and Plan Assessment: induction ongoing Comments: SVE performed and limon balloon removed from vagina. SVE 5cm with head well applied to cervix. Discussed amniotomy with pt and spouse including risks and benefits. She is agreeable. AROM performed and small amount of clear fluid returned. IUPC placed. Plan to assess contraction pattern at 1330 and if not olaf quate begin pitocin at that time. Anticipate vaginal .
[2022-09-11 14:32] LABS: Rapid Plasma Reagin Non-Reactive (NonReactive)
[2022-09-11] MEDS: OXYTOCIN 30 UNITS/NS 500 ML 30 UNITS/500 ML BAG IV CONT (15:56)
--- NOTE | 2022-09-11 18:32 | PM.OBPRVD ---
OB - Delivery Note Procedure Delivery date: 09/11/22 Procedure: Events: Gestational Hypertension Induction method: Per Cervidil Protocol and Other (Amado Balloon) Delivery augmentation: Rupture of Membranes Delivery monitor: External FHT, External Uterine and Internal Uterine Route of delivery: Episiotomy description: None Laceration Description: Perineal - 1st Degree and Labial (L labial 2nd degree, R labial 1st degree) Delivery repair: vicryl Specimen: Yes Quantitative Blood Loss (ml): 150 Anesthesia type: Local Disposition: Floor Complications: None Narrative: Patient progressed to complete dilation and began pushing with contractions. Patient made quick descent to . She delivered the head in a well-controlled fashion. A loose nuchal cord was identified after the delivery of the head. There was excellent restitution. She easily delivered the anterior followed by the posterior shoulder, and then the remainder of the infant. The was placed on the maternal abdomen and care was assumed by the nursery staff. After 1 minute of life the cord was doubly clamped and cut. Cord gases and cord blood was obtained. The placenta delivered in the [place] presentation. Vaginal and labial lacerations were repaired in usual fashion. All delivery counts were correct. Mother and baby skin to skin in the delivery room. [place] Baby Date of : 09/11/22 Time of : 17:46 Weeks of gestation at delivery: 37 (37.6) gender: Female Weight (pounds): 6 Weight (ounces): 15 presentation: vertex position: Right Occiput Anterior Placenta delivery description: Spontaneous Cord Vessel Description: 3 Vessels score one minute: 8 score five minutes: 8
--- NOTE | 2022-09-11 18:38 | PM.OBDSVD ---
DS: Admitting Diagnosis Discharge Date 09/13/2021 Admitting Diagnosis 27y.o. G1PO at 37wd gestation gHTN IOL Rh negative DS: Discharge Diagnosis Discharge Diagnosis (1) Mother currently breast-feeding: Code(s): Z39.1 - Encounter for care and examination of lactating mother Status: Acute (2) Rh negative status during : Code(s): O26.899 - Other specified related conditions, unspecified trimester; Z67.91 - Unspecified blood type, Rh negative Status: Acute (3) (normal spontaneous vaginal delivery): Code(s): O80 - Encounter for full-term uncomplicated delivery Status: Acute OB - DS: Summary Hospital Course Hospital Course: Uncomplicated OB Procedures : Ultrasound OB Procedures Intrapartum: Spontaneous Vag Delivery OB Procedures: : RHo (D) lg Peripartum Data Infant Delivery Method: Natural Vaginal Laceration Description: Perineal - 1st Degree, Vaginal - 1st Degree and Labial Episiotomy description: None complications: none Status at Discharge Overall status at discharge: patient is progressing back to baseline Time Spent with Patient Time attestation: Total time spent providing and/or coordinating discharge services: Exam Narrative: Alert and oriented. Mood is pleasant and cooperative. Urinating without difficulty. Denies passing any large clots. Perineum with minimal edema. Fundus firm and below umbilicus. Const: General: cooperative, healthy appearing, no acute distress and alert Orientation/consciousness: patient oriented x3 Limitations: no limitations Resp: Effort & Inspection: normal respiratory effort Auscultation: clear to auscultation bilaterally Cardio: Rate: regular rate GI: Inspection: normal to inspection Neuro: General: patient oriented x3 Extrem: General: normal to inspection Psych: Appearance: grossly normal Mental Status: mental status grossly normal Affect: normal affect Thought process: Normal thought process present DS: Data Data Completed and Pending Labs on day of discharge: Labs from last 24 hours 09/10/22 09/10/22 09/10/22 17:26 17:26 17:25 U Random Total Protein < 5 Protein/Creat Ratio 2 < 0.02 RPR Non-reactive Blood Type A Negative Antibody Screen Positive Antibody Identification Inconclusive Antigen Identification Cancelled MAYE, IgG Interpret Negative MAYE, Poly Interpret Not Performed MAYE, Complement Interp Negative Discharge Plan Discharge Attending physician on discharge: Katelynn,Nery L. Discharging Clinician: Ban Marinelli Anticipated Discharge Date/Time: 09/17/22 10:00 Patient Disposition: Home, Self-Care Activity: may shower Diet: as tolerated and regular Discharge Instructions: Continue taking your vitamin and any other supplements as previously directed (Examples: Iron, Vitamin D). You may take Tylenol 1000mg over the counter every 6 hours as needed for pain. Do not exceed 4000mg of Tylenol daily. You may continue using tucks pads and dermoplast spray if needed for a few more days. Education: Mom and Baby Guide Given to: Mother Follow-Up: Call your delivering provider's office for an appointment to be seen in: 1 Week Mom and baby should come to the [facility] for the follow-up appointment. Appointment Date/Time: September 13, 2022 at 11:00 am What to expect at your follow-up visit: Blood Pressure Check Physical Assessment Call [phone] if you are unable to keep your appointment time. BREAST CARE: * Wear a snug supportive bra. * For engorgement discomfort: Breast Feeding: * Apply warm moist washcloths * Express milk as needed to relieve engorgement * Wear loose clothing * For sore nipples: * Identify correct latch-on * Apply warm moist washcloths before and after nursing * Air dry nipples after nursing
[2022-09-11] MEDS: BENZOCAINE 20% AER SPR (*SP) 56 GM CAN 1 SPRAY TOPICAL (20:50)
[2022-09-11] MEDS: WITCH HAZEL 40 PADS 1 PAD TOPICAL (20:50)
[2022-09-12 04:37] VITALS: BP 128/85; PULSE 90; RESP 18; TEMP 36.9; O2SAT 100
[2022-09-12 04:47] LABS: Hematocrit 32.1 % (37.0-47.0); Hemoglobin 10.3 g/dL (12.0-15.0)
--- NOTE | 2022-09-12 07:27 | P.PNOB_ITS ---
OB - PN: Subj Subjective Date/time seen: 09/12/22 07:27 Interval history: No Ob complaints Patient comments: other (feels migraine coming on and takes excedrin when not ) [place] baby status: doing well OB - PN: Obj Data Labs 09/12/22 03:10 09/10/22 17:25 Labs: Laboratory Results - last 24 hr 09/10/22 09/12/22 17:26 03:10 Hgb 10.3 L Hct 32.1 L RPR Non-reactive OB - PN A/P Plan day: 1 Plan: routine care, discharge home, follow up 6 weeks and other (ok to take excedrin now for migraines) Time Spent With Patient Time: Total time spent is greater than 50% in coordination of care (as documented) at patient's floor/unit and/or counseling patient: Exam : Bimanual exam- vagina & uterus: other (Uterus firm, nt @U)
[2022-09-12 08:00] VITALS: BP 119/79; PULSE 68; RESP 18; TEMP 37.3; O2SAT 98
[2022-09-12] MEDS: MULTIVIT/MIN/PREN/FOL AC/IRON TABLET 1 TAB PO (08:17)
[2022-09-12] MEDS: DOCUSATE SODIUM 100 MG CAPSULE PO (08:17)
[2022-09-12] MEDS: FERROUS SULFATE 324 MG TABLET PO (08:17)
--- NOTE | 2022-09-12 09:55 | WPDANLDPN2 ---
Anes-Prog Note L&D Date/Time: 09/12/22 09:55 Comfortable throughout: labor and delivery Neuraxial method: epidural Epidural/Spinal procedure site: clean & non-tender Neuro status: Neuro function grossly intact. Cardiovascular status: normal Respiratory status: normal Airway patency: baseline Mental status: baseline Post-Op hydration status: normal Vital Signs: Last Vital Signs Temp 37.3 C 09/12/22 08:00 Pulse 68 09/12/22 08:00 Resp 18 09/12/22 08:00 BP 119/79 09/12/22 08:00 Pulse Ox 98 09/12/22 08:00 O2 Del Method Room Air 09/11/22 21:15 Pain score (VAS): 3/10 I/O: Intake & Output 09/11/22 09/12/22 09/12/22 23:59 07:59 15:59 Intake Total 500 500 Output Total 50 1600 Balance 450 -1100 Post-procedural complaints: none Patient feedback: Patient satisfied with anesthetic care.
--- NOTE | 2022-09-12 11:00 | PC.NURSE ---
[id number] Introductions were made, then consulted with patient to assess needs related to . Mother led the conversation with her?plans to feed?her infant and the?experience so far. Mother works well with her with encouragement and education. Encouraged understanding of the benefits of skin to skin (unwrapping infant and placing vertically on her chest), stimulating with massage touch, changing positions to encourage wakefulness, how to watch for early feeding signs,responsive feeding, feeding on demand aiming for 8-12 times in 24 hours (about every 2-3 hours), milk production, duration of feeding, signs of adequate intake/output and how to record on the feeding sheet. Reviewed positioning and ear, shoulder, hip alignment, supporting the breast, asymmetrical latch (off-center), and leading with the chin with a big, open, wide gape. Infant latched optimally to the left breast in cross cradle position. Education given to parents of how to visualize suck/swallow ratios and listen for drinking at the breast. was able to maintain latch without discomfort to mother. Nipple care reviewed with optimal latch and good positioning. Resources used to facilitate learning were used with the tool/mom and baby guide. Mother voiced understanding of responsive feedings, stimulating with skin to skin, massage touch, talking to infant to encourage if it has been 2 -2.5 hours since the start of the last , to call if infant does not latch, or if there is discomfort with . Resources provided for inpatient consult using mom/baby guide and name on the white board utilizing the call light. Parents voiced understanding of information, demonstrated learning and will call if there is a request for assistance. Reported to primary RN.
[2022-09-12 11:46] VITALS: BP 102/48; PULSE 60; RESP 16; TEMP 36.9; O2SAT 98
[2022-09-12] MEDS: RHO(D) IMMUNE GLOBULIN 300 MCG/2 ML SYRINGE IM (14:24)
[2022-09-12 16:00] VITALS: BP 116/68; PULSE 63; RESP 16; TEMP 36.7; O2SAT 99
[2022-09-12 20:15] VITALS: BP 136/88; PULSE 61; RESP 18; TEMP 36.7; O2SAT 98
--- NOTE | 2022-09-13 07:54 | PM.OBPNVD ---
OB - PN: Subj Subjective Date/time seen: 09/13/22 07:45 Interval history: No Ob complaints Patient comments: no complaints and pain well controlled [place] baby status: doing well and nursing well feeding status: exclusively breast feeding OB - PN: Obj Data Labs 09/12/22 03:10 09/10/22 17:25 Labs: Laboratory Results - last 24 hr 09/12/22 03:10 Blood Type A Negative Antibody Screen TNP Screen Negative Baby's Blood Type A pos Baby's MAYE Negative Doses of RhIg Required 1 OB - PN A/P Plan day: 2 Plan: discharge home Time Spent With Patient Time: Total time spent is greater than 50% in coordination of care (as documented) at patient's floor/unit and/or counseling patient: Review of Systems Review of Systems: All systems reviewed & are unremarkable except as noted in HPI and below Exam Narrative: Alert and oriented. Mood is pleasant and cooperative. Urinating without difficulty. Denies passing any large clots. Perineum with minimal edema. Fundus firm and below umbilicus. Const: General: cooperative, healthy appearing, no acute distress and alert Orientation/consciousness: patient oriented x3 Limitations: no limitations Resp: Effort & Inspection: normal respiratory effort Auscultation: clear to auscultation bilaterally Cardio: Rate: regular rate GI: Inspection: normal to inspection Neuro: General: patient oriented x3 Extrem: General: normal to inspection Psych: Appearance: grossly normal Mental Status: mental status grossly normal Affect: normal affect Thought process: Normal thought process present
[2022-09-13 08:30] VITALS: BP 123/69; PULSE 70; RESP 18; TEMP 36.9; O2SAT 99
[2022-09-13] MEDS: FERROUS SULFATE 324 MG TABLET PO (08:32)
[2022-09-13] MEDS: DOCUSATE SODIUM 100 MG CAPSULE PO (08:32)
[2022-09-13] MEDS: MULTIVIT/MIN/PREN/FOL AC/IRON TABLET 1 TAB PO (08:32)
[2022-09-13 11:49] VITALS: BP 114/61; PULSE 67; RESP 16; TEMP 36.9; O2SAT 99
--- NOTE | 2022-09-13 17:21 | PC.NURSE ---
[id number] Introductions were made, then consulted with patient to assess needs related to . Mother led the conversation with her?plans to feed?her infant and the?experience so far. Mother works well with her with encouragement and education. Encouraged understanding of the benefits of skin to skin (demonstrating unwrapping and placing upright on her chest), stimulating with massage touch, changing positions to encourage wakefulness, how to watch for early feeding cues, responsive feeding, feeding on demand (aiming for 8-12 times in 24 hours, about every 2-3 hours), milk production, building/maintaining a milk supply, duration of feeding, signs of adequate intake/output and how to record on the feeding sheet. Reviewed positioning and ear, shoulder, hip alignment, supporting the breast to facilitate a deep latch, asymmetrical latch (off-center), leading with the chin with a big, open, wide gape and body close to mother. Infant latched optimally to the left breast in cross cradle position. Education given to mother of how to visualize suck/swallow ratios and listen for drinking at the breast. Infant was able to maintain latch without discomfort to mother despite the tongue appearing a bit tight. Mother was encouraged to bring her infant onto the breast to achieve a big, deep latch with giving her a mouthful. Assessing the breast there is a small purple linear prashanth on her left areola just above the nipple. the nipples appear without injury with exception to some bruising. Nipple care reviewed with optimal latch and good positioning. After breastfed effectively she was place skin to skin upright on mother's chest, feeding cues were responded to and was assisted to the right breast using football positioning with an optimal latch. Mother states there is slight pinching and she is unsure if it because she is tender from poor previous latches or it needs to be adjusted. With appearing to have a tight lingual frenulum and movement of the tongue past the gumline a decision was made to detach and attempt more improved latch. Infant has a big, open, wide gape, brought to the breast asymmetrically with chin buried and nose near the breast. Infant has a nice rounded cheek line, good rocking jaw movement and suck/swallows are 3:1 or less. Mother states she has pinching tenderness still but it is much improved. There is a slight misshaped nipple after detaching infant from the breast. Discussed with mother the importance of changing positions with each breastfeed while infant is learning to latch deeply with tongue down. Reviewed good handwashing when or touching the breast/nipples to prevent infection. Resources used to facilitate learning were used with the tool, mom and baby guide. Mother voiced understanding of skin to skin, stimulating with massage touch, responsive feedings, talking to to encourage if it has been 2 -2.5 hours since the start of the last , to call if does not latch, or if there is discomfort with . Resources provided for inpatient/outpatient with business card, feeding sheet and the mom/baby guide. Reviewed with parents if there is pain with to contact ICP and/or for assistance. Parents voiced understanding of information, demonstrated learning and will call if there is a request for assistance. Reported to the primary RN.
[2022-09-16 10:57] VITALS: BP 132/85; PULSE 88; RESP 20; TEMP 36.9; O2SAT 99
== END 2022-09-13 13:26 | disposition home or self-care (01) | DRG 807 ==
LOC: ANHLDR 09-11 18:42 → ANHOB2 09-11 20:59
PROVIDERS: Advanced Practice Midwife; Admitting Provider Obstetrics & Gynecology Gynecology; PCP Family Medicine; Visit Provider Obstetrics & Gynecology Gynecology
DX: O14.94 Unspecified pre-eclampsia, complicating childbirth (principal); Z37.0 Single live birth; O69.81X0 Labor and delivery complicated by cord around neck, without compression, not applicable or unspecified; O70.1 Second degree perineal laceration during delivery; O13.4 Gestational [pregnancy-induced] hypertension without significant proteinuria, complicating childbirth; Z3A.37 37 weeks gestation of pregnancy; Z67.91 Unspecified blood type, Rh negative
CPT/HCPCS: 36415; 80053; 82570; 84156; 84550; 85014; 85018; 85025; 85461; 86592; 86850; 86880; 86900; 86901; 88307; 90384; A9270; J2405; J2590; J2790; J2795; J3010; J7120

== ENCOUNTER 2023-01-27 09:09 | Outpatient (CLI) | payer OTHER, SELFPAY ==
[2023-01-27 10:29] LABS: Vitamin D 25 Hydroxy 28.6 ng/mL
== END 2023-01-27 09:10 | disposition home or self-care (01) ==
PROVIDERS: PCP Family Medicine; Visit Provider Advanced Practice Midwife
DX: E55.9 Vitamin D deficiency, unspecified (principal)
CPT/HCPCS: 36415; 82306

== ENCOUNTER 2023-08-15 08:01 | Outpatient (CLI) | payer OTHER, SELFPAY ==
[2023-08-15 12:43] LABS: Hematocrit 42.7 % (37.0-47.0); Hemoglobin 13.2 g/dL (12.0-15.0); Mean Corpuscular HGB Conc 30.9 g/dl (32-36); Mean Corpuscular Hemoglobin 26.7 pg (26-34); Mean Corpuscular Volume 86.3 fl (80-100); Mean Platelet Volume 10.9 fl (7.4-10.4); Platelet Count Result 310 k/mm3 (150-375); Red Blood Count 4.95 M/mm3 (4.2-5.4); Red Cell Distribution Width 13.1 % (11.5-14.5); White Blood Count 6.4 K/mm3 (4.5-10.0)
[2023-08-15 12:52] LABS: Alanine Aminotransferase 21 U/L (6-35); Albumin Level 4.4 g/dL (3.5-5.1); Alkaline Phosphatase 94 U/L (38-126); Anion Gap 7 mmol/L (8-16); Aspartate Amino Transferase 34 U/L (14-36); Blood Urea Nitrogen 9 mg/dL (7-17); Calcium 8.8 mg/dL (8.4-10.2); Carbon Dioxide 26 mmol/L (22-30); Chloride 107 mmol/L (98-107); Cholesterol 201 mg/dL (0-200); Estimated Glomerular Filt Rate > 60; Glucose 88 mg/dL (65-110); HDL Direct 34 mg/dL; Potassium 3.7 mmol/L (3.4-5.0); Sodium 140 mmol/L (137-145); Triglycerides 113 mg/dL (<150)
[2023-08-15 13:03] LABS: LDL Cholesterol Direct 121 mg/dL
[2023-08-15 13:12] LABS: Vitamin D 25 Hydroxy 38.8 ng/mL
== END 2023-08-15 08:02 | disposition home or self-care (01) ==
LOC: ANHGOSHLAB 08:03
PROVIDERS: PCP Family Medicine; Visit Provider Nurse Practitioner
DX: Z00.00 Encounter for general adult medical examination without abnormal findings (principal); E55.9 Vitamin D deficiency, unspecified
CPT/HCPCS: 36415; 80053; 80061; 82306; 83036; 84443; 85027

== ENCOUNTER → 2023-08-20 11:12 | Outpatient (CLI) | payer OTHER, SELFPAY ==
--- NOTE | ~2023-08-20 | US_ITS ---
Pelvic ultrasound. Clinical History: Pelvic pain Technique: Realtime transabdominal and transvaginal scanning of the pelvis was performed. Color flow Doppler and Doppler spectral analysis were performed. Findings: The uterus is anteverted, and measures 7.9 x 4.0 x 4.7 cm. The endometrial stripe has a th ickness of 13 mm. No focal mass is identified. The right ovary measures 2.7 x 3.4 x 1.8 cm. No significant right ovarian or adnexal mass is seen. The left ovary measures 3.6 x 2.2 x 2.0 cm. No significant left ovarian or adnexal mass is seen. Vascular flow present in both ovaries on Doppler spectral analysis. There is no evidence of free fluid in the cul de sac. Impression: Unremarkable pelvic ultrasound. Reviewed, dictated and finalized at [facility]. RVISOR/PORT DIRECTOR Impression: Unremarkable pelvic ultrasound.
== END ==
PROVIDERS: PCP Family Medicine; Visit Provider Nurse Practitioner
DX: R10.9 Unspecified abdominal pain (principal)
CPT/HCPCS: 76830; 76856

== ENCOUNTER 2023-08-28 16:30 | Outpatient (CLI) | payer OTHER, SELFPAY ==
--- NOTE | ~2023-08-28 | CT_ITS ---
EXAMINATION: CT abdomen pelvis wo con DATE: 08/28/2023 16:53 INDICATION: R10.9 - Unspecified abdominal pain TECHNIQUE: Computed tomography (CT) of the abdomen and pelvis was performed without intravenous contr ast. Automated exposure control and iterative reconstruction technique were employed. The dose-length product was 1080.03 mGy-cm. COMPARISON: 03/04/2018. FINDINGS: Lower thorax: Subtle, ill-defined subsegmental groundglass opacity in the central/mid right lower lob e incompletely included in the [id number]. Liver: Normal. Biliary/Gallbladder: Gallbladder is partially contracted. Multiple gallstones. No inflammatory change . No bile duct dilation. Pancreas: No mass or duct dilation. Spleen: Normal. Adrenals:No mass. Kidneys: No suspicious mass, obstructing stone, or hydronephrosis. GI tract: No small or large bowel dilation. Normal appendix. Mesentery/Peritoneum: No ascites, mass, or free air. Retroperitoneum: No mass. Pelvis: Pelvic organs are within normal limits. Soft Tissues: Soft tissues and body wall unremarkable. Bones: No acute osseous finding. IMPRESSION: Subsegmental groundglass opacity in the mid right lower lobe that is incompletely included in the fie ld-of-view. May represent a focus of atelectasis, aspiration, inflammation, or infection, depending o n the clinical context. Cholelithiasis without CT evidence of cholecystitis. Reviewed, dictated and finalized at location K. ERCIAL ENERGY RATER IMPRESSION: Subsegmental groundglass opacity in the mid right lower lobe that is incomplete ly included in the [id number]. May represent a focus of atelectasis, aspirat ion, inflammation, or infection, depending on the clinical context. Cholelithiasis without CT evidence of cholecystitis.
== END 2023-08-28 16:31 | disposition home or self-care (01) ==
PROVIDERS: PCP Family Medicine; Visit Provider Nurse Practitioner
DX: K80.20 Calculus of gallbladder without cholecystitis without obstruction (principal)
CPT/HCPCS: 74176

== ENCOUNTER 2023-10-31 09:51 | Outpatient (CLI) | payer OTHER, SELFPAY ==
--- NOTE | ~2023-10-31 | XR_ITS ---
AP view of the pelvis and AP and lateral views of the bilateral hips Clinical history: Pain Findings: No acute fracture or dislocation is seen. Osseous alignment is anatomic. Bilateral hip and SI joint spaces are preserved. Soft tissues are unremarkable. Impression: No significant abnormality is seen. Reviewed, dictated and finalized at [facility]. WARE CONFIGURATION MANAGER Impression: No significant abnormality is seen.
== END 2023-10-31 09:52 | disposition home or self-care (01) ==
PROVIDERS: PCP Family Medicine; Visit Provider Family Medicine
DX: M25.551 Pain in right hip (principal); M25.552 Pain in left hip; R10.30 Lower abdominal pain, unspecified
CPT/HCPCS: 73521

== ENCOUNTER 2023-12-12 08:30 | Outpatient (RCR) | payer OTHER, SELFPAY ==
--- NOTE | 2023-11-11 16:05 | PTOPEVAL1 ---
Assessment and note entered by Venancio Lewis, PT Evaluation Information Assessment Status Evaluation Diagnosis Bilateral hip pain Onset November 2022 Subjective Information Reports that she is primarily having left hip pain and it is anterior in nature all the way to knee. She has had some anterior hip pain prior to childbirth for about 4 years. She has had some back straining issues as well. Does not feel weakness but when she is hurting does feel her leg could give out on her. She is R handed. She is also having pain bending over into the crib. Reported Pain Level Pain Score 0: Self Report Assessment PT Clinical Summary Patient presents with classic signs and symptoms of left hip impingement. Pain is present at end range of L hip mobility multidirectional and presents with positive FADIR sign. Weakness noted in core and lateral hips. Patient will benefit from skilled therapy to address these deficits to maximize pain free function moving forward. Plan of Care PT Services Indicated Yes Treatment Frequency and 2x/week for 8 visits Duration These treatments will address the objective and functional deficits as defined above. The patient will be advanced safely and appropriately in order for the patient to progress towards his/her prior level of function. Additional exercises will be introduced and as well as a comprehensive home exercise program upon discharge, if needed, ?to ensure carryover of functional gains achieved in the clinic. This treatment plan has been reviewed and agreement upon by the patient.
--- NOTE | 2023-11-11 16:05 | OPREHPOC ---
Outpatient Therapy Plan of Care This is a Multidisciplinary Plan of Care that may contain components documented by all disciplines (PT, OT, and ST.) PT Problem 1 PT Problem #1 Knowledge Deficit PT Goal 1 Goal [place] with HEP Target Visit 4 PT Problem 2 PT Problem #2 Pain PT Goal 1 Goal Report no pain with ambulation greater than 500' Target Visit 4 PT Problem 3 PT Problem #3 Impaired Strength PT Goal 1 Goal Improve chris hip abduction strength to 4+/5 to improve lateral stability with gait and ADLs Target Visit 8 PT Goal 2 Goal Improve L hip external rotation strength to 4+/5 to improve hip stability and reduction of impingement position Target Visit 8 PT Problem 4 PT Problem #4 Impaired Range of Motion PT Goal 1 Goal Demonstrate 40 decrees of pain free hip internal rotation on L hip indicating reduction of impingement Target Visit 8 PT Problem 5 PT Problem #5 Impaired Strength PT Goal 1 Goal Improve lower abdominal strength to 4/5 to improve core stability for lumbar stabilization Target Visit 8
--- NOTE | 2023-12-12 09:26 | OPREHPOC ---
Outpatient Therapy Plan of Care This is a Multidisciplinary Plan of Care that may contain components documented by all disciplines (PT, OT, and ST.) PT Problem 1 PT Problem #1 Knowledge Deficit PT Goal 1 Goal [place] with HEP Target Visit 4 Progress Met PT Problem 2 PT Problem #2 Pain PT Goal 1 Goal Report no pain with ambulation greater than 500' Target Visit 4 Progress Met PT Problem 3 PT Problem #3 Impaired Strength PT Goal 1 Goal Improve chris hip abduction strength to 4+/5 to improve lateral stability with gait and ADLs Target Visit 8 Progress Met PT Goal 2 Goal Improve L hip external rotation strength to 4+/5 to improve hip stability and reduction of impingement position Target Visit 8 Progress Met PT Problem 4 PT Problem #4 Impaired Range of Motion PT Goal 1 Goal Demonstrate 40 decrees of pain free hip internal rotation on L hip indicating reduction of impingement Target Visit 8 Progress Met PT Problem 5 PT Problem #5 Impaired Strength PT Goal 1 Goal Improve lower abdominal strength to 4/5 to improve core stability for lumbar stabilization Target Visit 8 Progress Met
--- NOTE | 2023-12-12 09:26 | PTOPDC ---
Assessment and note entered by Venancio Lewis, PT Evaluation Information Assessment Status Discharge Diagnosis Bilateral hip pain Onset November 2022 Subjective Information Reports that she has had a lot of benefit from therapy. She has been able to understand what it really means to activate her core. Pain is greatly improved and no concerns for discharge at this time. Reported Pain Level Pain Score 0: Self Report Assessment PT Clinical Summary Patient has met all goals for therapy and is suitable for discharge to [facility] at this time. Plan of Care PT Services Indicated D/C to [facility]
== END 2023-12-12 11:02 | disposition home or self-care (01) ==
LOC: ANHGOSHPT 08:30
PROVIDERS: PCP Family Medicine; Visit Provider Family Medicine
DX: M25.551 Pain in right hip (principal); M25.552 Pain in left hip
CPT/HCPCS: 97110; 97112; 97140; 97161; 97530

== ENCOUNTER 2023-12-24 13:36 | Outpatient (CLI) | payer OTHER, SELFPAY ==
--- NOTE | ~2023-12-24 | CT_ITS ---
EXAMINATION: CT abdomen wo con DATE: 12/24/2023 13:55 INDICATION: Right upper quadrant abdominal pain. TECHNIQUE: Computed tomography (CT) of the abdomen was performed without intravenous contrast. Automa rachel exposure control and iterative reconstruction technique were employed. The dose-length product wa s 605.01 mGy-cm. COMPARISON: CT abdomen and pelvis 08/28/2023 FINDINGS: The visualized portions of the lung bases are clear without pneumonia or pleural effusion. The heart size is normal. No pericardial effusion. The liver and spleen are normal. There are gallsto eliecer in the gallbladder, which is normal in size. The pancreas, adrenal glands, and kidneys are normal . There are no dilated loops of bowel. There is a large volume of food in the stomach. There is mild lumbar spondylosis. IMPRESSION: 1. Cholelithiasis. No evidence of acute cholecystitis. Reviewed, dictated and finalized at location E.
== END 2023-12-24 13:37 | disposition home or self-care (01) ==
LOC: ANHIMG 13:36
PROVIDERS: PCP Family Medicine; Visit Provider Nurse Practitioner
DX: R10.9 Unspecified abdominal pain (principal); K80.20 Calculus of gallbladder without cholecystitis without obstruction
CPT/HCPCS: 74150

== ENCOUNTER 2024-01-07 10:21 | Outpatient (CLI) | payer OTHER, SELFPAY ==
[2024-01-07 10:55] LABS: Alanine Aminotransferase 21 U/L (6-35); Albumin Level 4.5 g/dL (3.5-5.1); Alkaline Phosphatase 83 U/L (38-126); Amylase 61 U/L (30-110); Anion Gap 3 mmol/L (4-12); Aspartate Amino Transferase 14 U/L (14-36); Bilirubin,Total 0.9 mg/dL (0.2-1.3); Blood Urea Nitrogen 11 mg/dL (7-17); Calcium 9.3 mg/dL (8.4-10.2); Carbon Dioxide 29 mmol/L (22-30); Chloride 107 mmol/L (98-107); Estimated Glomerular Filt Rate > 60; Glucose 93 mg/dL (65-110); Lipase 53 U/L (23-300); Potassium 4.1 mmol/L (3.4-5.0); Sodium 139 mmol/L (137-145)
== END 2024-01-07 10:22 | disposition home or self-care (01) ==
LOC: ANHSURGERY 10:25
PROVIDERS: PCP Family Medicine; Visit Provider Surgery
DX: K80.20 Calculus of gallbladder without cholecystitis without obstruction (principal); Z01.818 Encounter for other preprocedural examination
CPT/HCPCS: 36415; 80053; 82150; 82248; 83690

== ENCOUNTER 2024-01-12 00:47 | Day surgery (SDC) | payer OTHER, SELFPAY ==
[2024-01-06 08:44] VITALS: BMI 33.7
--- NOTE | 2024-01-06 08:50 | PC.NURSE ---
Report to the Outpatient Waiting Room, entrance under the green pavilion located off [facility], at time 1130 on date _01/12/24. Planned Procedure Time: _1330_. Time changes happen often and if your time is changed the preop area will call you the afternoon before. - You and your visitor will be asked to self-screen and do not enter if you have any COVID symptoms. - A mask is optional within the hospital at this time. Patients may have clear liquids (water, carbonated beverages, clear teas, apple juice) until 3 hours prior to surgery with a maximum of 20 ounces. - No food from midnight until time of surgery - Infants may have breast milk until 4 hours before surgery, infant formula 6 hours prior to surgery. - Children will be allowed to drink immediately following surgery. If applicable, please bring a bottle or sippy cup to assist with drinking. Juice, water, soda, and popsicles are readily available. For infants on formula, please bring formula the day of surgery. Pacifiers are allowed. Take the following medications with a SIP of water the morning of surgery: __NONE DO NOT STOP ANY OF YOUR OTHER PRESCRIPTION MEDICATIONS PRIOR TO SURGERY ?EXCEPT THE FOLLOWING Medications to discontinue per physician NONE Date to take last dose Please no make-up, nail macedonian, hairspray, perfume, deodorant, or body powder the day of surgery. No jewelry (including any body piercings) or valuables the day of surgery, leave them at home. Please take a shower or bath the night before, or the morning of, surgery with HIBICLENS antibacterial soap. Wear comfortable, loose fitting clothing. Children are encouraged to wear pajamas. - Jewelry must be removed prior to entering the operating room. Rings and piercings that are not removed may be cut off. - The hospital will not accept responsibility for valuables. - Please leave all valuables, including medications, at home the day of surgery. If you are going home after surgery, a licensed regional company truck driver must drive you home. - NO public transportation without another adult if you receive anesthesia. - We recommend that an adult stay with you for 24 hours following discharge. - We also recommend that you do not drive, make important decision, drink alcoholic beverages, or take any drugs that were not prescribed by your health care provider for at least 24 hours after your discharge time. For Pediatric surgeries, we recommend two adults accompany the child home. Follow any additional instructions given to you from your surgeon. If you or anyone in your household have experienced Covid symptoms in the past week, please notify your surgeon or the nurse liaison at the phone number below for possible testing. Telephone instructions given to _PATIENT_and asked if any additional questions and then verbalized understanding. Patient advised to call surgeon office or pre surgery nurse liaison [phone] if any additional questions.
[2024-01-12] VITALS (8 sets, daily range): BP systolic 114–142; BP diastolic 64–86; PULSE 58–86; RESP 10–18; TEMP 36.3–36.7; O2SAT 99–100
[2024-01-12] MEDS: LACTATED RINGERS 1,000 ML 30 ML IV CONT ×2 (12:00→14:40)
--- NOTE | 2024-01-12 12:24 | WPDANESEPPF ---
Anes - Initial Pre Proc Eval Procedure: Operation Date: 01/12/24 13:30 Proposed Procedures p Laparoscopic Cholecystectomy, Possible Open - Isaac Pimentel DO Date/Time: 01/12/24 12:24 Surgeon: Isaac Pimentel DO Pre Op Diagnosis: Sym Cholelithiasis Patient Data Age: 28 Gender: F Height: 1.68 m Weight: 95 kg Allergies Allergy/AdvReac Type Severity Reaction Status Date / Time amoxicillin Allergy Mild hives Verified 01/12/24 12:19 clavulanic acid Allergy Mild HIVES Verified 01/12/24 12:19 Home Medications Medication Instructions Recorded Confirmed Type polyethylene glycol 3350 17 17 g PO DAILY PRN Constipation 08/14/23 01/06/24 History gram/dose oral powder (Miralax) calcium carbonate (Tums) 200 mg PO QID PRN Indigestion 01/06/24 01/06/24 History Patient hx anesthesia problems: none Family hx anesthesia problems: none Results Review: All pre-operative results and documents have been reviewed as part of the pre-operative evaluation. FORMERLY [facility] Past Medical History Medical History History of PCOS PIH ( induced hypertension) Pyelonephritis UTI (urinary tract infection) Surgical History Surgical History History of adenoidectomy History of tonsillectomy Family History Family History Father Diabetes mellitus Mother Alive and well Grandparent Colon cancer Grandparent Breast cancer in female Social History Social History Social History: Caffeine- coffee/soda Smoking status: Never smoker Second hand tobacco smoke exposure: Yes Alcohol intake: never Substance use: never Substance use type: does not use Lack of Transportation: No Lack of Food: Never True Current Housing: I Have Housing Concerned About Future Housing: No Difficulty Paying Gas/Electric Bills: No Difficulty Paying for Meds: No Currently Unemployed: No Education: Associate Degree Difficulty w/ Childcare or Family Care: No Living arrangements: with family Occupation/Education: unemployed Gender identity (if verbalized by the patient): Female Sexual Orientation (if Verbalized by the Patient): Straight or Heterosexual Spiritual care concerns: No Anes - Eval Final PreProcedure Day of Procedure 01/12/24 12:24 Patient weight: overweight Heart: regular rate and rhythm Lungs: clear to auscultation Airway: Mallampati scale class II Neurological: alert and oriented Last oral intake: >/= 8 hours ASA classification: II Emergent: no Anesthetic plan: proceed Anesthesia type and monitoring: general ETT and standard monitoring Results Review: All pre-operative results and documents have been reviewed as part of the pre-operative evaluation. Informed Consent: The patient's anesthetic plan and its attendant risks and benefits were discussed with the patient/family/POA. Questions were solicited and answers provided to the satisfaction of the patient/family/POA.
[2024-01-12] MEDS: KETOROLAC 15 MG/ML VIAL (*BKC) IV PUSH (12:35)
[2024-01-12] MEDS: SCOPOLAMINE 1 MG PATCH 1 PATCH TRANSDERM (12:35)
[2024-01-12] MEDS: ACETAMINOPHEN 500 MG TABLET 1000 MG PO (12:35)
--- NOTE | 2024-01-12 13:23 | WPDHPUPDATE1 ---
History and Physical Update Update Date/Time: 01/12/24 13:23 History and Physical has been reviewed, including an updated exam of the patient. There are NO changes in the patient's condition. Risks, benefits, and alternatives have been discussed and questions answered. Patient agrees to proceed with procedure.
[2024-01-12] MEDS: ceFAZolin 2 GM/D5W 50 ML 2 GM/50 ML BAG IVPB (13:53)
[2024-01-12] MEDS: BUPIVACAINE/EPINEPHRINE 0.5% 10 ML VIAL 30 ML INFILTRATE (14:17)
--- NOTE | 2024-01-12 14:39 | W.PM.PROC2 ---
Procedure Note - Detailed Date of Procedure 01/12/24 Pre-op Diagnosis Symptomatic Cholelithiasis Post-op Diagnosis Same Procedure Performed Laparoscopic Cholecystectomy Surgeon Isaac Pimentel, DO Anesthesia General and Local (0.5% bupivacaine) Indications This is a 28-year-old woman who presented with multiple episodes of right upper quadrant abdominal pain over the past 3 months. She had a CT which showed evidence of cholelithiasis. She had no changes in her liver enzymes. Discussions were made with the patient about treatment options and decision was made to proceed with laparoscopic cholecystectomy, possible open. Findings Laparoscopic cholecystectomy was performed. The patient's gallbladder appeared slightly dilated without any significant inflammation. The cystic duct appeared normal in size. There were multiple friable yellow stones within the gallbladder. No other significant abnormalities were noted. The gallbladder was removed and sent to the lab for pathology. Description of Procedure Procedure as well as risks, benefits, and alternatives were discussed with patient. Written consent was obtained and placed in chart prior to procedure. The patient was brought back to surgical suite. Patient was placed in supine position on operating table. Time-out was done to confirm patient and procedure. Patient was then intubated by the anesthesia department. Abdomen was prepped and draped in sterile fashion using chlorhexidine prep. 0.5% bupivacaine with epinephrine was infiltrated at each site of incision. A 5 millimeter incision was made near the umbilicus, and a 5 millimeter Optiview trocar was advanced through the abdominal layers under direct visualization. Once inside the abdominal cavity, carbon dioxide was insufflated to create a pneumoperitoneum. The camera was inserted and the abdomen was inspected. No immediate abnormalities were identified. The patient was placed in reverse Trendelenburg position and rotated slightly to the left. An 11 millimeter incision was made in the subxiphoid region, and an 11 millimeter trocar was inserted under direct visualization. Two 5 millimeter incisions were made in the right upper quadrant, and two 5 millimeter trocars were inserted under direct visualization. The gallbladder was identified and grasped at the fundus and retracted superiorly. It was then grasped at the infundibulum retracted laterally. Careful dissection around the neck of the gallbladder was performed using blunt dissection with a [place] grasper and hook electrocautery. The cystic duct was identified, and a window was created behind it. The cystic artery was also identified and a window was created behind it. The critical view of safety was identified, visualizing the cystic duct running directly into the neck of the gallbladder, and the cystic artery running directly into the wall of the gallbladder. A 5 millimeter clip operating room surgical technologist was then used to place 2 clips proximally and 1 clip distally on both the cystic duct and cystic artery. They were then both transected using endoscopic scissors. Once safely away from the gabi hepatitis, the gallbladder was dissected free from the liver bed using hook electrocautery. Hemostasis was achieved along the way. The gallbladder was removed completely and then removed through the subxiphoid port. The liver bed was then inspected. Hemostasis appeared adequate, and our clips appeared secure. The area was gently irrigated with sterile saline. No other abnormalities were seen. The patient was flattened out in bed, and 1 final inspection was made around the abdominal cavity. The subxiphoid port was removed, and a Momo Ghada cone was used to approximate the fascia with an 0-Vicryl simple interrupted suture. The remaining ports were then removed under direct visualization, the camera was removed, and the pneumoperitoneum was released. The skin of the incisions was approximated using 4-0 Mon
[2024-01-12] MEDS: oxyCODONE HCL (*CRX) 5 MG TAB IR PO (15:45)
== END 2024-01-12 16:25 | disposition home or self-care (01) ==
PROVIDERS: PCP Family Medicine; Visit Provider Surgery
PROC: 0FT44ZZ Resection of Gallbladder, Percutaneous Endoscopic Approach (ICD-10-PCS; CPT 47562; principal; 2024-01-12 13:30)
DX: K80.10 Calculus of gallbladder with chronic cholecystitis without obstruction (principal)
CPT/HCPCS: 47562; 88304; A9270; J0690; J1100; J1170; J1885; J2250; J2405; J2704; J3010; J7030; J7120

== ENCOUNTER 2024-01-28 09:42 | Outpatient (CLI) | payer OTHER, SELFPAY ==
[2024-01-28 11:27] LABS: Vitamin D 25 Hydroxy 39.3 ng/mL
[2024-01-29 08:04] LABS: Insulin Level Total 14.6 uIU/mL
[2024-01-29 23:54] LABS: Prolactin 10.6 ng/mL
[2024-01-30 01:09] LABS: DHEA-Sulfate 210 mcg/dL (14-349)
[2024-01-31 19:48] LABS: Testosterone Total 44 ng/dL (2-45)
== END 2024-01-28 09:43 | disposition home or self-care (01) ==
LOC: ANHLAB 09:45
PROVIDERS: PCP Family Medicine; Visit Provider Advanced Practice Midwife
DX: E55.9 Vitamin D deficiency, unspecified (principal); E28.2 Polycystic ovarian syndrome
CPT/HCPCS: 36415; 82306; 82627; 83036; 83498; 83525; 84146; 84403; 84439; 84443

== ENCOUNTER 2024-04-28 13:29 | Outpatient (CLI) | payer OTHER, SELFPAY ==
--- NOTE | ~2024-04-28 | US_ITS ---
EXAMINATION: US OB <= 14 weeks fetus DATE: 04/28/2024 14:51 INDICATION: Uncertain gestational dates TECHNIQUE: Real-time transabdominal and transvaginal obstetric ultrasound. FINDINGS: No prior studies for comparison. The uterus measures 12.9 x 6.9 x 7.5 cm. There is an intrauterine gestational sac, with pole id entified. The crown rump length measures 3.15 cm, which correlates with a estimated gestational age of 10 weeks 0 days. heart tones are identified measuring 175. The right ovary is not visualiz ed. Left ovary is unremarkable measuring 3.5 x 2.8 x 1.8 cm. No free fluid in the pelvis. IMPRESSION: 1. SL IUP with an EGA of 10 weeks, 0 days (EDC by current ultrasound of 11/24/2024). Reviewed, dictated and finalized at location B. IMPRESSION: 1. SL IUP with an EGA of 10 weeks, 0 days (EDC by current ultrasound of 11/25/19 25).
== END 2024-04-28 13:30 | disposition home or self-care (01) ==
LOC: ANHIMG 13:29
PROVIDERS: PCP Family Medicine; Visit Provider Advanced Practice Midwife
DX: Z36.87 Encounter for antenatal screening for uncertain dates (principal); Z3A.10 10 weeks gestation of pregnancy
CPT/HCPCS: 76801

== ENCOUNTER 2024-05-03 07:52 | Outpatient (CLI) | payer OTHER, SELFPAY ==
[2024-05-03 08:34] LABS: Basophils Absolute Auto 0.1 K/mm3 (0.0-0.1); Basophils Percent Auto 0.5 % (0.2-1.2); Eosinophils Absolute Auto 0.1 K/mm3 (0-0.3); Eosinophils Percent Auto 1.2 % (0-4.4); Hematocrit 41.5 % (37.0-47.0); Hemoglobin 13.3 g/dL (12.0-15.0); Immature Granulocyte Absolute 0.02 K/mm3 (0.00-0.031); Immature Granulocyte Percent A 0.2 % (0-0.5); Lymphocytes Absolute Auto 2.09 K/mm3 (0.9-3.2); Lymphocytes Percent Auto 22.4 % (18.3-44.2); Mean Corpuscular Volume 84.3 fl (80-100); Mean Platelet Volume 10.7 fl (7.4-10.4); Monocytes Absolute Auto 0.5 K/mm3 (0.1-0.6); Monocytes Percent Auto 5.3 % (2.6-8.5); Neutrophils Absolute Auto 6.6 K/mm3 (1.3-6.7); Neutrophils Percent Auto 70.4 % (45.5-73.1); Platelet Count Result 302 k/mm3 (150-375); Red Blood Count 4.92 M/mm3 (4.2-5.4); Red Cell Distribution Width 13.1 % (11.5-14.5); White Blood Count 9.3 K/mm3 (4.5-10.0)
[2024-05-03 09:28] LABS: HIV 1/2 Ab P24 Ag Result Negative (Negative)
[2024-05-03 10:56] LABS: Hemoglobin A1C 4.9 % (<5.7)
[2024-05-03 10:57] LABS: Vitamin D 25 Hydroxy 38.1 ng/mL
[2024-05-03 11:01] LABS: Hepatitis B Surface Antigen Negative (Negative); Rubella IgG Antibody 62.8 IU/ML
[2024-05-03 11:09] LABS: Hepatitis C Virus Antibody Negative (Negative)
[2024-05-03 11:10] LABS: Thyroid Stimulating Hormone Reflex 0.867 uIU/mL (0.465-4.68)
[2024-05-03 11:37] LABS: Rapid Plasma Reagin Non-Reactive (NonReactive)
== END 2024-05-03 07:53 | disposition home or self-care (01) ==
LOC: ANHLAB 07:54
PROVIDERS: PCP Family Medicine; Visit Provider Advanced Practice Midwife
DX: Z36.9 Encounter for antenatal screening, unspecified (principal)
CPT/HCPCS: 36415; 82306; 82728; 83036; 84443; 85025; 86592; 86703; 86762; 86803; 86850; 86900; 86901; 87340; G0432

== ENCOUNTER 2024-07-01 09:25 | Outpatient (CLI) | payer OTHER, SELFPAY ==
--- NOTE | ~2024-07-01 | US_ITS ---
EXAMINATION: US OB /maternal detail DATE: 07/01/2024 11:10 INDICATION: anatomic survey. TECHNIQUE: Real-time ultrasound of the pelvis was performed. COMPARISON: Ultrasound 04/28/2024 FINDINGS: There is a single living fetus in variable presentation. The placenta is fundal, 4.9 cm from the cer vix. heart rate is 148 beats per minute (bpm). The amniotic fluid volume is subjectively normal . The deepest vertical pocket is 5.6 cm. The cervical length is 4.6 cm on transabdominal images, whic h is normal. The following biometric data were obtained: Biparietal diameter (BPD): 4.4 cm; head circumference (HC): 16.9 cm; abdominal circumference (AC): 14 .1 cm; femur length (FL): 2.9 cm. These measurements are concordant. Estimated weight is 281 g +/- 42 g, which correlates with the 51st percentile when 11/24/24 is u sed as estimated date of delivery. As single measurements, these parameters are each equal to the following estimated gestational ages: BPD: 19 weeks 3 days. HC: 19 weeks 4 days. AC: 19 weeks 3 days. FL: 18 weeks 6 days. estimated gestational age based solely on measurements from this exam is 19 weeks 2 days +/- 1 weeks 2 days. The cerebral ventricles, cerebellum, cisterna magna, nuchal fold, lip, and spine are normal. The hear t is normal. The diaphragm, stomach, kidneys, and bladder are normal. There are two umbilical arterie s to yield a 3-vessel cord. The cord insertion is normal. IMPRESSION: 1. Single living fetus in variable presentation. 2. Estimated weight is 281 g +/- 42 g, which correlates with the 51st percentile when 11/24/24 is used as estimated date of delivery. This date was set by ultrasound on 04/28/2024. 3. Normal anatomic survey. Reviewed, dictated and finalized at location A. IMPRESSION: 1. Single living fetus in variable presentation. 2. Estimated weight is 281 g +/- 42 g, which correlates with the 51st pe rcentile when 11/24/24 is used as estimated date of delivery. This date was set by ultrasound on 04/28/2024. 3. Normal anatomic survey.
== END 2024-07-01 09:26 | disposition home or self-care (01) ==
LOC: ANHIMG 09:29
PROVIDERS: PCP Family Medicine; Visit Provider Advanced Practice Midwife
DX: Z36.9 Encounter for antenatal screening, unspecified (principal)
CPT/HCPCS: 76805

== ENCOUNTER 2024-08-04 14:21 | Outpatient (CLI) | payer OTHER, SELFPAY ==
[2024-08-04 14:50] VITALS: BP 138/81; PULSE 103
[2024-08-04 15:01] VITALS: BP 124/79; PULSE 89
[2024-08-04 15:08] LABS: Add Urine Microscopic? NO; Appearance Urine Clear (Clear); Basophils Percent Auto 0.2 % (0.2-1.2); Bilirubin Urine Negative (Negative); Blood Urine Negative (Negative); Color Urine Yellow (Yellow); Eosinophils Absolute Auto 0.1 K/mm3 (0-0.3); Eosinophils Percent Auto 0.5 % (0-4.4); Glucose Urine UA Negative (Negative); Hematocrit 37.7 % (37.0-47.0); Hemoglobin 12.4 g/dL (12.0-15.0); Immature Granulocyte Absolute 0.07 K/mm3 (0.00-0.031); Immature Granulocyte Percent A 0.6 % (0-0.5); Ketones Urine Negative (Negative); Leukocyte Esterase Ur Negative LEU/UL (Negative); Lymphocytes Absolute Auto 2.08 K/mm3 (0.9-3.2); Lymphocytes Percent Auto 16.5 % (18.3-44.2); Mean Corpuscular HGB Conc 32.9 g/dl (32-36); Mean Corpuscular Hemoglobin 28.2 pg (26-34); Mean Corpuscular Volume 85.9 fl (80-100); Mean Platelet Volume 10.4 fl (7.4-10.4); Monocytes Absolute Auto 0.7 K/mm3 (0.1-0.6); Monocytes Percent Auto 5.2 % (2.6-8.5); Neutrophils Absolute Auto 9.7 K/mm3 (1.3-6.7); Nitrate Urine Negative (Negative); Platelet Count Result 307 k/mm3 (150-375); Protein Urine Negative (Negative); Red Blood Count 4.39 M/mm3 (4.2-5.4); Red Cell Distribution Width 13.2 % (11.5-14.5); Specific Grav Ur 1.022 (1.001-1.035); White Blood Count 12.6 K/mm3 (4.5-10.0)
[2024-08-04 15:16] VITALS: BP 121/77; PULSE 91
[2024-08-04 15:19] VITALS: BP 138/81; PULSE 103; BMI 35.9
[2024-08-04 15:22] LABS: Alanine Aminotransferase 14 U/L (6-35); Alkaline Phosphatase 94 U/L (38-126); Anion Gap 8 mmol/L (4-12); Aspartate Amino Transferase 14 U/L (14-36); Bilirubin,Total 0.6 mg/dL (0.2-1.3); Blood Urea Nitrogen 8 mg/dL (7-17); Carbon Dioxide 22 mmol/L (22-30); Chloride 104 mmol/L (98-107); Estimated Glomerular Filt Rate > 60; Glucose 71 mg/dL (65-110); Potassium 3.8 mmol/L (3.4-5.0); Sodium 134 mmol/L (137-145); Uric Acid 3.4 mg/dL (2.5-7.5)
[2024-08-04 15:26] LABS: Creatinine Urine 167.4 mg/dL; Total Protein Urine Random 9 mg/dL; Ur Ttl Prot Creatinine Ratio 0.05 mg/mg (0-0.20)
[2024-08-04 15:50] VITALS: BP 124/79; PULSE 89
== END 2024-08-04 15:52 | disposition home or self-care (01) ==
LOC: ANHOBOP 14:28 → ANHOBPP 14:39
PROVIDERS: PCP Family Medicine; Visit Provider Advanced Practice Midwife
DX: O13.9 Gestational [pregnancy-induced] hypertension without significant proteinuria, unspecified trimester (principal); Z3A.00 Weeks of gestation of pregnancy not specified
CPT/HCPCS: 36415; 59025; 80053; 81003; 82570; 84156; 84550; 85025; 99199

== ENCOUNTER 2024-08-07 10:20 | Outpatient (NON) | payer OTHER, SELFPAY ==
[2024-08-07 12:20] LABS: Collection Time Urine 24 HOURS
[2024-08-07 12:24] LABS: Patient Weight 222 Lbs; Total Volume 24 Hour Urine 1900 ml
[2024-08-07 12:36] VITALS: BMI 35.9
[2024-08-07 12:36] LABS: Creatinine Clearance Urine 178.8 ml/min (75-125); Creatinine Urine 81.6 mg/dL; Total Protein Urine 24 Hr 228 mg/24hr (28-141); Total Protein Urine Random 12 mg/dL
[2024-08-07 12:41] LABS: Specific Gravity Ur 1.012
== END 2024-08-07 10:21 | disposition home or self-care (01) ==
PROVIDERS: PCP Obstetrics & Gynecology Gynecology; Visit Provider Obstetrics & Gynecology Gynecology
DX: O13.9 Gestational [pregnancy-induced] hypertension without significant proteinuria, unspecified trimester (principal); Z3A.00 Weeks of gestation of pregnancy not specified
CPT/HCPCS: 81050; 82575; 84156

== ENCOUNTER 2024-09-02 07:46 | Outpatient (RCR) | payer OTHER, SELFPAY ==
[2024-09-02 09:14] LABS: Glucose 1 Hour PP 50gm Dose 139 mg/dL
[2024-09-02 10:39] LABS: Vitamin D 25 Hydroxy 38.3 ng/mL
[2024-09-02 10:43] LABS: Rapid Plasma Reagin Non-Reactive (NonReactive)
[2024-09-02 10:53] LABS: Hematocrit 35.3 % (37.0-47.0); Hemoglobin 11.5 g/dL (12.0-15.0)
[2024-09-02 11:03] LABS: HIV 1/2 Ab P24 Ag Result Negative (Negative)
[2024-09-03] MEDS: RHO(D) IMMUNE GLOBULIN 300 MCG/2 ML SYRINGE IM (09:19)
== END 2024-12-01 23:59 | disposition home or self-care (01) ==
LOC: ANHLAB 07:46
PROVIDERS: PCP Nurse Practitioner; Visit Provider Advanced Practice Midwife
DX: Z11.4 Encounter for screening for human immunodeficiency virus [HIV] (principal); Z11.3 Encounter for screening for infections with a predominantly sexual mode of transmission; Z29.13 Encounter for prophylactic Rho(D) immune globulin; O36.0190 Maternal care for anti-D [Rh] antibodies, unspecified trimester, not applicable or unspecified; Z3A.00 Weeks of gestation of pregnancy not specified
CPT/HCPCS: 36415; 82306; 82947; 85014; 85018; 85461; 86592; 86703; 86850; 86900; 86901; 90384; 96372; G0432; J2790

== ENCOUNTER 2024-09-06 14:57 | Outpatient (CLI) | payer OTHER, SELFPAY ==
--- NOTE | ~2024-09-06 | US_ITS ---
EXAMINATION: US OB follow up DATE: 09/06/2024 15:31 INDICATION: Estimated size greater than expected for estimated gestational age TECHNIQUE: Real-time ultrasound of the pelvis was performed. The interpreting radiologist was not pre sent for the study. COMPARISON: 07/01/2024 FINDINGS: There is a single living fetus in vertex presentation. The placenta is anterior fundal and not low-l migdalia. heart rate is 131 beats per minute (bpm). The amniotic fluid index is 17.6 cm, which is normal (5th%-95%: 9.4-22.8 cm at 28 weeks estimated gestational age). Normal cervical length of 3.5 c m. The following biometric data were obtained: BPD: 7.6 cm -> 30 weeks 3 days Head circumference: 28.6 cm -> 31 weeks 3 days Abdominal circumference: 26.2 cm -> 30 weeks 2 days Femur length: 5.6 cm -> 29 weeks 4 days These measurements are concordant. Head circumference to abdominal circumference ratio: 1.09 (normal range 0.97-1.18). Estimated weight: 1531 g (+/-) 230 g or 3 lbs. 6 oz. (+/-) 8 oz. IMPRESSION: 1. Single living fetus in vertex presentation with heart rate of 131 bpm. 2. Normal amniotic fluid index of 17.6 cm. 3. Estimated weight is 88th percentile by Hadlock criteria when 11/24/2024 is used as the estima rachel date of delivery (EVENS). Please correlate with clinical information or earlier ultrasounds for mos t accurate EVENS. Reviewed, dictated and finalized at location B. ING ACID DUMPER IMPRESSION: 1. Single living fetus in vertex presentation with heart rate of 131 bpm. 2. Normal amniotic fluid index of 17.6 cm. 3. Estimated weight is 88th percentile by Hadlock criteria when 11/24/2024 is used as the estimated date of delivery ([place]). Please correlate with clinica l information or earlier ultrasounds for most accurate EVENS.
== END 2024-09-06 14:58 | disposition home or self-care (01) ==
LOC: ANHIMG 14:58
PROVIDERS: PCP Nurse Practitioner; Visit Provider Obstetrics & Gynecology Gynecology
DX: O36.63X0 Maternal care for excessive fetal growth, third trimester, not applicable or unspecified (principal); Z3A.00 Weeks of gestation of pregnancy not specified
CPT/HCPCS: 76816

== ENCOUNTER 2024-09-09 07:46 | Outpatient (CLI) | payer OTHER, SELFPAY ==
[2024-09-09 08:16] LABS: Glucose Fasting Gestational 85 mg/dL (>/=95)
[2024-09-09 09:39] LABS: Glucose 1 Hour Gest 120 mg/dL (>/=180)
[2024-09-09 11:22] LABS: Glucose 2 Hour Gest 102 mg/dL (>/= 155)
[2024-09-09 11:56] LABS: Glucose 3 Hour Gest 92 mg/dL (>/=140)
--- OUTSIDE RECORDS SUMMARY | 2024-09-16 04:38 | XMS_ITS | Data Portability ---
Author Organization [facility], Main Office Address [address] [address] [place] [address] Care Team Providers Care Motor Pool Driver Name Role Phone Unavailable Referring Provider Unavailable THANH MARTIN Primary Care Provider Assessment No assessment recorded. Plan of Treatment Reminders Order Date Submit Date Provider Last Modified By Organization Details Last Modified Time Details Appointments None record ed. Lab None record ed. Referral None record ed. Procedures None record ed. Surgeries None record ed. Imaging None record ed. Medication Orders Lido5% /Dilt2 % 023 06/10/20 [facility], [address], [place], [place], [phone], 11:52:00 Patient TargetsNo targets recorded. Patient Instructions Encounter Date Encounter Id Patient Instructions Last Modified By Organization Details Last Modified Time 06/10/2023 She will f/u wit h me in 6 - 8 weeks. I advised she should call in 3 - 4 weeks if she is not better. I would send her to a C&R surgeon to consider a Botox injection. I think she will do well with getting her BM's softer and using the compound. On today's visit I spent a total of {{30 35* 40 45 50 55 60}} minutes prepping for her visit (reviewing shared records), [id number] with her and documenting. Not available 06/15/2023 08:37:58 07/24/2023 She will f/u wit h me in 6 - 8 weeks and I will retreat her RP and LL and try to treat her RA internal hemorrhoids. We will probably do a 3rd treatment about 8 weeks after that. On today's visit I spent a total of {{30 35 40 45 50 55 60 25#}} minutes prepping for her visit (reviewing past and shared records), [id number] with her and documenting. Not available 07/25/2023 14:09:58 09/18/2023 [id number] Patient counsele d to F/U immediately if temp. greater than 100.4, if is unable to urinate, increased rectal pain or any other concerns. Not available 09/17/2023 21:19:34 Since she is doing so well, she will f/u only as needed. Not available 11/25/2023 06:29:09 Reason for Referral None Reported. 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 2022 Sofia Wetzel MD [address] [place] [address],[address] [place] [address], [phone], [facility] 3 14:10:13 Pile easily reducible 678696662 Active 202206/10/23: No tx - tx fissure Tx #1: 07/24/23 1.2 x 8 RP and 1.2 x 6 LL Tx #2: 09/18/23 1.2 x 5 RP, x 4 LL and x 4 RA Sofia Wetzel MD [address] [place] [address],[address], [place], [address], [facility] 4 06:29:20 Constipation 44955642 Active 2022 Sofia Wetzel MD [facility], [place], [address], [facility] 14:08:08 Problem Notes None recorded. Procedures Surgical History Date Name Laterality Status Provider Name and Address Organization Details Recorded Time 09/18/19 24 IRC completed Sofia Wetzel MD [address] [place] [address],[address], [place], [address], [facility] 11/25/2023 06:27:18 07/24/20 23 IRC completed Sofia Wetzel MD [address] [place] [address],[address], [place], [address], [facility] 07/25/2023 14:04:11 09/08/19 23 Date of Last Pap Smear completed [facility] 06/10/2023 16:02:32 06/29/20 06 Tonsillectomy completed Sofia Wetzel MD [address] [place] [address],[address] [place] [address], [phone], [facility] 06/14/2023 16:12:41 Imaging Results None recorded. Procedure Notes None recorded. Medical Equipment None Reported. Allergies Allergen ID Allergen Name Allergen Category Reaction Reaction Severity Criticality Documentation Date Start Date Code Code System Note Provider Name and Address Organization Details Recorded Time 9212 Augmentin medicatio n Not available Not available Not available 06/10/2023 28422 2 RxNorm ALETA PASCUAL [facility] 3 15:54:09 Medications Name Sig Start Date Stop Date Status Note LastModified by Organization Details LastModified Time Lido5%/Dilt 2% Apply pea-sized amount to anal opening with finger tip as directed up to 5 times daily prn 2022 active Not Available Not Available Not Avai lable lidocaine 5%/diltiaze m 2% #92939 5%/2% cream Apply pea-sized AMOUNT TO anal opening with finger TIP as directed UP TO FIVE times daily NEEDED active Not Available Not Available No t Available valacyclovi r 500 mg tablet TAKE 1 TABLET BY MOUTH TWICE DAILY 06/10 completed Not Available Not Available Not Available sulfamethox azole 800 mg-trimetho prim 160 mg tablet TAKE 1 TABLET TWICE DAILY FOR 7 DAYS 06/10 completed Not Available Not Available Not Available diltiazem HCl (bulk) powder active Not Available Not Available Not Available ergocalcife rol (vitamin D2) 1,250 mcg (50,000 unit) capsule TAKE 1 CAPSULE BY MOUTH 2 TIMES A WEEK WITH A MEAL active Not Available Not Available No t Available norethindro ne (contracept cyrus) 0.35 mg tablet TAKE 1 TABLET BY MOUTH DAILY active Not Available Not Available No t Available hydrocortis one-pramoxi ne 1 %-1 % rectal cream APPLY RECTALLY TO THE AFFECTED AREA UP TO FOUR TIMES DAILY NEEDED 06/10 completed Not Available Not Available Not Available Vitals None Recorded Social History Question Answer Notes LastModified by Organizat ion Details LastModified Time Tobacco Smoking Status Never Smoker ALETA borden [place] [facility] 06/10/2023 16:01:49 Alcohol Use No [email or web address] Information not available 06/10/2023 Caffeine Use Yes [email or web address] Information not available 06/10/2023 Caffeine Type Coffee [email or web address] Informatio n not available 06/10/2023 Caffeine Amount 200mg [email or web address] Information not available 06/10/2023 Illicit Drug Use No [email or web address] Information not available 06/10/2023 What Was The Date Of Your Most Recent Tobacco Screening? 09/18/2023 [email or web address] Information not available 09/18/2023 Do You Or Have You Ever Used Any Other Forms Of Tobacco Or Nicotine? No [email or web address] Information not available 06/10/2023 Sex: Unknown Functional Status None recorded. Mental Status None recorded. Family History Relationship Description Onset Age of this Age Resolved Age Notes LastModified by Organization Details LastModified Time Maternal Grandmother Malignant tumor of colon 55 80 [email or web address] Not available 11/2022 16:00:53 Maternal Grandmother Hypertensive disorder 60 Not available 11/2022 16:01:21 Unspecified Relation Malignant tumor of colon 55 80 matern al great grandm a [email or web address] Not available 06/10/2023 16:00:53 Paternal Grandmother Malignant tumor of breast 70 [email or web address] Not available 11/2022 16:01:10 Maternal Grandfather Diabetes mellitus 80 Not available 11/2022 16:01:31 Father No current problems or disability Not available 06/15 08:31:27 Mother No current problems or disability Not available 06/15 08:31:27 Medical History Condition Response Coronary Artery Disease N Other Y Atrial Fibrillation N Kidney Stones N Hyperthyroidism N COPD N Depression N Accidental Bowel Leakage N Headaches/Migraines Y Anxiety Disorder N Genital Herpes N Diverticulosis N Cancer N Stroke N Head Trauma N Crohn's Disease N HIV/AIDS N Irritable Bowel Syndrome N Kidney Disease N Celiac Disease N Anal/Rectal Trauma/Injury N Cataracts N Bleeding Disorder N Heart Attack N Asthma N Mitral Valve Prolapse N Pulmonary Embolism N Hernia N Glaucoma N Hypothyroidism N Deep Vein Thrombosis N Cardiac Dysrhythmia N MRSA/VRE Exposure N Genital Warts N Liver Disease/Hepatitis N High Cholesterol N Autoimmune Disease N Anemia N Arthritis/Gout N Diabetes N Seizures/Epilepsy N Congestive Heart Failure (CHF) N Diverticulitis N Reflux/GERD Y Ulcerative Colitis N Sleep Apnea N Aneurysm N Heart Disease N Hypertension N Colon/Rectal Polyps N Gynecological History Statement/Question Response Number of Pregnancies? 1 Tear or Laceration During Delivery? Y Could You Be or Are You Currently Pregna nt? N Number of Vaginal Deliveries? 1 Accidental Bowel Leakage Post Delivery? N Episiotomy During Delivery? N Date of Last Pap Smear 09/08/2022 Obstetrics History GPAL:G 0 P 0 0 0 0 Past Encounters Encounter ID Performer Location Encounter Start Date Encounter Closed Date Diagnosis/Indication Diagnosis SNOMED-CT Code Diagnosis ICD10 Code Diagnosis Note [id number] Sofia Wetzel MD Main Office [address] [facility] [address] [place] [address] 06/10/2023 15:21:44 06/10/2023 16:35:42 Chronic anal fissure 482194739 K60.1 I discussed fissures with her. I demonstrat ed how to use the compound with the EMP jar. I want her to use it consistent ly TID (and can use it up to 5 times per day) for the first 2 - 3 weeks. Hopefully her pain will improve and she will be able to then taper down and eventually off of the compound. I discussed with her that even if the fissure heals completely it is always a weak area and can become recurrent. She should keep the compound on hand to use if she has these recurrent problems. She of course needs to consistent ly eat a high fiber diet and drink plenty of water. I advised that she start BOTH Bene Fiber and Miralax at very low dose (1/4 tsp of each daily) and slowly increase. Once she figures out what dose works to maintain daily and soft (Marathon Scale type 4) BM's, she should take it daily and forever. External hemorrhoids 239 64204 K64.4 I discussed hemorrhoid s in general with her as well as the treatment options. She now understand s that any non-surgic al procedure (infrared coagulatio n or banding) would be done on her internal hemorrhoid s. I deferred looking at her internals today. I want to get her fissure healed before doing so. She also now understand s the only way to directly treat external hemorrhoid s/skin tags would be with a surgical excision. She does not wish to pursue this and her hemorrhoid s are not bad enough to warrant surgery. She should continue using the moist baby wipes. I advised she should be using a gentle soap. Sofia Wetzel MD Main Office [address] [address] 07/24/2023 15:05:22 07/24/2023 15:47:46 Pile easily reducible 612255341 K64.1 Stage 2 internal hemorrhoid s: I discussed hemorrhoid s in general with her as well as the treatment options. She now understand s that any non-surgic al procedure (infrared coagulatio n or banding) would be done on her internal hemorrhoid s. I do think she would benefit from IRC. Full informed consent was given including risks, benefits and alternativ es. All questions were answered. She wanted to proceed with treatment. Her first IRC treatment was done today on her RP and LL internal hemorrhoid s. External hemorrhoids 239 21683 K64.4 These will improve with IRC. She understand s the only way to directly treat external hemorrhoid s would be with a surgical excision. She does not wish to pursue this and her hemorrhoid s are not bad enough to warrant surgery. She should continue using the moist baby wipes. She did change to a gentle soap. Chronic anal fissure 197 364057 K60.1 This is much better with the compound and with treating her constipati on. I discussed with her again that even if the fissure heals completely it is always a weak area and can become recurrent. She should keep the compound on hand to use if she has these recurrent problems. She should also use it for a few days before and after every treatment. Constipation 51984085 K5 9.00 She of course needs to consistent ly eat a high fiber diet and drink plenty of water. I advised that she continue the Bene Fiber and Miralax at whatever dose works to maintain daily and soft (Marathon Scale type 4) BM's. She is currently doing well with 1/2 - 1 tsp of Bene Fiber and 3 tsps of Miralax daily. She should take these daily and forever. Sofia Wetzel MD Main Office [address] [facility] [address] [place] [address] 09/18/2023 15:08:21 09/18/2023 15:40:02 Pile easily reducible 539468788 K64.1 Stage 2 internal hemorrhoid s: She has done well with IRC. Her 2nd and final treatment was done today on all 3 internal hemorrhoid s. External hemorrhoids 239 49256 K64.4 These have improved with IRC. She understand s the only way to directly treat external hemorrhoid s would be with a surgical excision. She does not wish to pursue this and her hemorrhoid s are not bad enough to warrant surgery. She should continue using the moist baby wipes. She did change to a gentle soap. Chronic anal fissure 197 089322 K60.1 This has healed with the compound, treating her constipati on and also treating her hemorrhoid s. I discussed with her again that even if the fissure heals completely it is always a weak area and can become recurrent. She should keep the compound on hand to use if she has these recurrent problems. Constipation 82841952 K5 9.00 She of course needs to consistent ly eat a high fiber diet and drink plenty of water. I advised that she continue the Bene Fiber and Miralax at whatever dose works to maintain daily and soft (Marathon Scale type 4) BM's. She is currently doing well with 1/2 - 1 tsp of Bene Fiber and 3 tsps of Miralax daily. She should take these daily and forever. Health Concerns Section Related Observation LastModified by Organization Detai ls LastModified Time None Recorded Concern Status LastModified by Organization Details LastModified Time None Recorded Advance Directives Directive None Recorded Payers Encounter Date Sequence Insurance Name Policy Number Policy Moreno Covered Member ID Moreno Member ID Guarantor Name 06/10/2023 1 [facility] [id number] [facility] [place] [facility] [id number] [facility] 07/24/2023 1 [facility] [id number] [facility] [place] [facility] [id number] [facility] 09/18/2023 1 [facility] [id number] [facility] [place] [facility] [id number] [facility] Notes Date Note Type Note Provider Name and Address Organization Details Recorded Time 06/10/2023 text/html This is a very pleasant 27 year old woman who started having symptoms from her hemorrhoids and an anal fissure during the last few months of her (vaginal delivery in 09/2022). The pain has become more persistent since then. Bleeding: She sees BRB on the wipe with almost every BM. She has had no heavy bleeding or leakage of blood in between BM's. Pain: She has severe ripping pain with BM's. This lasts for about 15-30 minutes and she frequently has to lie down after a BM. She then gets some ache throughout the day depending on her activities. Itching: She gets a lot of external irritation and itching. Discharge: It is always hard to get clean after BM's because of swelling and irritation. She consistently uses the moist baby wipes. She does not have difficulty staying clean - she does not have to re-wipe. She has no drainage. Prolapse: Not that she feels or has to manually reduce. External swelling: She gets external swelling with BM's. Discomfort: As above. She denies internal symptoms of pressure, a sense of being blocked when trying to have a BM or a sense of incomplete emptying after BM's. Previous Hemorrhoid Treatment: She has used OTC hemorrhoid products and lidocaine. She has a prescription for 2.5% hydrocortisone cream but does not feel it helps. She has never had a procedure on her hemorrhoids. Previous Lower GI Endoscopy: She has never had a c-scope. Bowel Habits: She did have constipation with her but currently her BM's are daily. They are not always soft (Marathon Scale type 3 - occasionally type 4). She tries to consistently eat a high fiber diet and drink plenty of water. Sofia Wetzel MD [address] [facility],[address], [place], [address], [facility] 06/15/2023 08:45:37 07/24/2023 text/html Follow up: She d id get the compound and feels it helped a lot. She is still using it 1 - 2 times daily, but most of the time this is to prevent discomfort/pain, not really to treat it. She does get external swelling with BM's. She describes this as 3 purple peas at the anal verge. These can be very uncomfortable. She does not have any bleeding.She is now taking 1/2 - 1 tsp of Bene Fiber and 3 tsps of Miralax daily. Her BM's are daily and soft (Marathon Scale type 4). Even if her BM is soft, she can still get the external swelling. 06/10/23:This is a very pleasant 27 year old woman who started having symptoms from her hemorrhoids and an anal fissure during the last few months of her (vaginal delivery in 09/2022). The pain has become more persistent since then.Bleeding: She sees BRB on the wipe with almost every BM. She has had no heavy bleeding or leakage of blood in between BM's.Pain: She has severe ripping pain with BM's. This lasts for about 15-30 minutes and she frequently has to lie down after a BM. She then gets some ache throughout the day depending on her activities.Itching: She gets a lot of external irritation and itching.Discharge: It is always hard to get clean after BM's because of swelling and irritation. She consistently uses the moist baby wipes. She does not have difficulty staying clean - she does not have to re-wipe. She has no drainage.Prolapse: Not that she feels or has to manually reduce.External swelling: She gets external swelling with BM's.Discomfort: As above. She denies internal symptoms of pressure, a sense of being blocked when trying to have a BM or a sense of incomplete emptying after BM's.Previous Hemorrhoid Treatment: She has used OTC hemorrhoid products and lidocaine. She has a prescription for 2.5% hydrocortisone cream but does not feel it helps. She has never had a procedure on her hemorrhoids.Previous Lower GI Endoscopy: She has never had a c-scope.Bowel Habits: She did have constipation with her but currently her BM's are daily. They are not always soft (Marathon Scale type 3 - occasionally type 4). She tries to consistently eat a high fiber diet and drink plenty of water. Sofia Wetzel MD [address] [facility],[address], [place], [address], [facility] 07/25/2023 14:11:42 09/18/2023 text/html She had no probl em with the first treatment and she has been doing very well. She has used the compound only a few times (she did use it today prior to treatment). She has a lot less swelling with BM's. She has had no bleeding. She continues on the Bene Fiber and Miralax and her BM's are soft. 07/24/23:Follow up: She did get the compound and feels it helped a lot. She is still using it 1 - 2 times daily, but most of the time this is to prevent discomfort/pain, not really to treat it. She does get external swelling with BM's. She describes this as 3 purple peas at the anal verge. These can be very uncomfortable. She does not have any bleeding.She is now taking 1/2 - 1 tsp of Bene Fiber and 3 tsps of Miralax daily. Her BM's are daily and soft (Marathon Scale type 4). Even if her BM is soft, she can still get the external swelling.06/10/23:Layne acharya is a very pleasant 27 year old woman who started having symptoms from her hemorrhoids and an anal fissure during the last few months of her (vaginal delivery in 09/2022). The pain has become more persistent since then.Bleeding: She sees BRB on the wipe with almost every BM. She has had no heavy bleeding or leakage of blood in between BM's.Pain: She has severe ripping pain with BM's. This lasts for about 15-30 minutes and she frequently has to lie down after a BM. She then gets some ache throughout the day depending on her activities.Itching: She gets a lot of external irritation and itching.Discharge: It is always hard to get clean after BM's because of swelling and irritation. She consistently uses the moist baby wipes. She does not have difficulty staying clean - she does not have to re-wipe. She has no drainage.Prolapse: Not that she feels or has to manually reduce.External swelling: She gets external swelling with BM's.Discomfort: As above. She denies internal symptoms of pressure, a sense of being blocked when trying to have a BM or a sense of incomplete emptying after BM's.Previous Hemorrhoid Treatment: She has used OTC hemorrhoid products and lidocaine. She has a prescription for 2.5% hydrocortisone cream but does not feel it helps. She has never had a procedure on her hemorrhoids.Previous Lower GI Endoscopy: She has never had a c-scope.Bowel Habits: She did have constipation with her but currently her BM's are daily. They are not always soft (Marathon Scale type 3 - occasionally type 4). She tries to consistently eat a high fiber diet and drink plenty of water. Sofia Wetzel MD [address], [place], [address], [facility] 11/25/2023 06:29:42 OBGyn Episode No OBEpisode recorded.
--- OUTSIDE RECORDS SUMMARY | 2024-09-16 04:38 | XMS_ITS | Referral Summary ---
Author Organization [facility] Address [address] [place] [address] Care Team Providers Care Rip Tailer Name Role Phone Unavailable Primary Care Provider Unavailabl e Source Comments [facility],non-owned Affiliates and Associated Physician Practices is amultiple site organization consisting of ambulatory clinics and hospital sitesin [place], [place], [place] and [place]. This disclosure is being madepursuant to the Care Everywhere program and may not contain all information available regarding this patient. Last updated 18.[facility] Allergies Active Allergy Reactions Criticality Noted Date Comments Augmentin Urticaria Medium 04/20/2019 Social History Tobacco Use Types Packs/Day Years Used Date Smoking Tobacco: Never Assessed Sex and Gender Information Value Date Recorded Sex Assigned at Not on file Gender Identity Not on file Sexual Orientation Not on file Plan of Treatment Not on file Administered Medications PATRICIA COLON Personal/Family [address] [place] [address] PATRICIA COLON Personal/Family [address] [place] [address] PATRICIA COLON Personal/Family [address] [place] [address] Patricia Colon Personal/Family Self 1995 [address] [place] [address]
--- OUTSIDE RECORDS SUMMARY | 2024-09-16 04:38 | XMS_ITS | Clinical Summary ---
Author Organization [facility] [employer] Address [address] [place] [address] Care Team Providers Care Scrap Baller Name Role Phone Unavailable Primary Care Provider Unavailabl e Source Comments [facility] [employer]),non-owned Affiliates and Associated Physician Practices is amultiple site organization consisting of ambulatory clinics and hospital sitesin [place], [place], [place] and [place]. This disclosure is being madepursuant to the Care Everywhere program and may not contain all information available regarding this patient. Last updated 18.[employer] Allergies Active Allergy Reactions Criticality Noted Date Comments Augmentin Urticaria Medium 04/20/2019 Social History Tobacco Use Types Packs/Day Years Used Date Smoking Tobacco: Never Assessed Sex and Gender Information Value Date Recorded Sex Assigned at Not on file Gender Identity Not on file Sexual Orientation Not on file Plan of Treatment Health Maintenance Due Date Last Done Comments PAP SMEAR 1996 HIV SCREENING 2011 HEPATITIS C SCREENING 06/25/2014 DTAP/TDAP/TD VACCINES (1 - Tdap) 2015 HEPATITIS B VACCINE (1 of 3 - 19+ 3-dose series) 2015 COVID-19 VACCINE ( - 2023-2 5 season) 2024 INFLUENZA VACCINE (#1) 2024 DEPRESSION SCREENING 09/08/2024 ZOSTER VACCINE (1 of 2) 2046 HIB VACCINE Aged Out No longer eligi ble based on patient's age to complete this topic HPV VACCINE Aged Out No longer eligi ble based on patient's age to complete this topic MENINGOCOCCAL VACCINE Aged Out No jorge mp eligible based on patient's age to complete this topic PNEUMOCOCCAL VACCINE Aged Out No long er eligible based on patient's age to complete this topic PATRICIA COLON Personal/Family [address] [place] [address] PATRICIA COLON Personal/Family [address] [place] [address] PATRICIA COLON Personal/Family [address] [place] [address] Patricia Colon Personal/Family Self 1995 [address] [place] [address]
--- OUTSIDE RECORDS SUMMARY | 2024-09-16 04:39 | XMS_ITS | Encounter Summary ---
Author Organization [facility] Address [address] [place] [address] Care Team Providers Care Cardroom Worker Name Role Phone Unavailable Primary Care Provider Unavailabl e Reason for Visit * Reason Comments PPD Skin Test Placement Encounter Details Date Type Department Care Team (Late st Contact Info) Description 04/20/2019 5:20 PM CDT Office Visit [facility] AT [address] [phone] Provider, Simone Anderson Nadeau PPD screening test (Primary Dx) Social History Tobacco Use Types Packs/Day Years Used Date Smoking Tobacco: Never Assessed Sex and Gender Information Value Date Recorded Sex Assigned at Not on file Gender Identity Not on file Sexual Orientation Not on file documented as of this encounter Progress Notes * Aracely Jaramillo - 04/23/2019 2:24 PM CDT Office Visit on 04/20/19 SKIN TEST PPD - POINT OF CARE Result Value Ref Range PPD 0 MM Normal PPd placed 04/20/2019 @ 5:25pm, PPd read 04/23/2019 @ 9:07am * Darrick Rajan APRN-CNP - 04/20/2019 5:23 PM CDT PPD Placement note Phyllis Lindsey, 23 year old female is here today for placement of PPD test Reason for PPD test: work Pt taken PPD test before: yes Verified in allergy area and with patient that they are not allergic to the products PPD is made of(Phenol or Tween). Yes Is patient taking any oral or IV steroid medication now or have they taken it in the last month? no Has the patient ever received the BCG vaccine?: no Has the patient been in recent contact with anyone known or suspected of having active TB disease?:no Date of exposure (if applicable): na Name of person they were exposed to (if applicable): na Patient's Country of origin?: [place] O: Alert and oriented in NAD. P: PPD placed on 04/20/2019. Patient advised to return for reading within 48-72 hours. documented in this encounter Plan of Treatment Not on file documented as of this encounter Procedures Procedure Name Priority Date/Time Associated Diagnosis Comments SKIN TEST PPD - POINT OF CARE Routine 04/23/2019 2:24 PM CDT PPD screening test documented in this encounter Results * SKIN TEST PPD - POINT OF CARE (04/23/2019 2:24 PM CDT) PPD 0 MM Normal PPd placed 04/20/2019 @ 5:25pm, PPd read 04/23/2019 @ 9:07am Other MISCELLANEOUS SAMPLE S / Unknown 04/23/2019 2:24 PM CDT Darrick [facility] - POINT OF CA RE ORDERABLES documented in this encounter Visit Diagnoses Diagnosis PPD screening test- Primary Screening examination for pulmonary tuberculosis documented in this encounter Administered Medications Administered Medications Medication Order MAR Action Action Date Dose Rate Site PPD Intradermal Given 04/20/2019 0.1 mL Left Forearm documented in this encounter
--- OUTSIDE RECORDS SUMMARY | 2024-09-16 04:39 | XMS_ITS | Patient Health Summary ---
Author Organization [facility] [employer] Address [address] [place] [address] Care Team Providers Care Machine Burrer Name Role Phone Unavailable Primary Care Provider Unavailabl e Note from [facility],non-owned Affiliates and Associated Physician Practices is amultiple site organization consisting of ambulatory clinics and hospital sitesin [place], [place], [place] and [place]. This disclosure is being madepursuant to the Care Everywhere program and may not contain all information available regarding this patient. Last updated 18.[facility] [employer] Allergies * Augmentin(Urticaria) -Medium Criticality Social History Tobacco Use Types Packs/Day Years Used Date Smoking Tobacco: Never Assessed Sex and Gender Information Value Date Recorded Sex Assigned at Not on file Gender Identity Not on file Sexual Orientation Not on file Procedures * SKIN TEST PPD - POINT OF CARE(Performed 04/23/2019) Performed for PPD screening test Results * SKIN TEST PPD - POINT OF CARE (04/23/2019 2:24 PM CDT) PPD 0 MM Normal PPd placed 04/20/2019 @ 5:25pm, PPd read 04/23/2019 @ 9:07am Other MISCELLANEOUS SAMPLE S / Unknown 04/23/2019 2:24 PM CDT Darrick Rajan APRN-SCRAP YARD WORKER LAB - POINT OF CA RE ORDERABLES
== END 2024-09-09 07:47 | disposition home or self-care (01) ==
PROVIDERS: PCP Nurse Practitioner; Visit Provider Obstetrics & Gynecology Gynecology
DX: O99.810 Abnormal glucose complicating pregnancy (principal); Z3A.00 Weeks of gestation of pregnancy not specified
CPT/HCPCS: 36415; 82951; 82952

== ENCOUNTER 2024-10-04 14:46 | Outpatient (CLI) | payer OTHER, SELFPAY ==
--- NOTE | ~2024-10-04 | US_ITS ---
EXAMINATION: US OB follow up DATE: 10/04/2024 15:14 INDICATION: Estimated size greater than expected for estimated gestational age TECHNIQUE: Real-time ultrasound of the pelvis was performed. The interpreting radiologist was not pre sent for the study. COMPARISON: None. FINDINGS: There is a single living fetus in vertex presentation. The placenta is anterior fundal and not low-l migdalia. heart rate is 131 beats per minute (bpm). The amniotic fluid index is subjectively normal with normal deepest vertical pocket measurement of 8.5 cm. The following biometric data were obtained: BPD: 8.5 cm -> 34 weeks 1 days Head circumference: 31.0 cm -> 34 weeks 4 days Abdominal circumference: 30.8 cm -> 34 weeks 5 days Femur length: 6.2 cm -> 32 weeks 1 days These measurements are concordant. Head circumference to abdominal circumference ratio: 1.01 (normal range 0.95-1.11). Estimated weight: 2322 g (+/-) 348 g or 5 lbs. 2 oz. (+/-) 12 oz. IMPRESSION: 1. Single living fetus in vertex presentation with heart rate of 131 bpm. 2. Estimated weight is 80th percentile by Hadlock criteria when 11/24/2024 is used as the estima rachel date of delivery (EVENS). Please correlate with clinical information or earlier ultrasounds for mos t accurate EVENS. Reviewed, dictated and finalized at location B. PATIAL SPECIALIST IMPRESSION: 1. Single living fetus in vertex presentation with heart rate of 131 bpm. 2. Estimated weight is 80th percentile by Hadlock criteria when 11/24/2024 is used as the estimated date of delivery (EVENS). Please correlate with clinica l information or earlier ultrasounds for most accurate EVENS.
== END 2024-10-04 14:47 | disposition home or self-care (01) ==
LOC: MICIMG 14:47
PROVIDERS: PCP Nurse Practitioner; Visit Provider Nurse Practitioner Women's Health
DX: O36.63X0 Maternal care for excessive fetal growth, third trimester, not applicable or unspecified (principal); Z3A.00 Weeks of gestation of pregnancy not specified
CPT/HCPCS: 76816

== ENCOUNTER 2024-10-14 11:49 | Outpatient (CLI) | payer OTHER, SELFPAY ==
[2024-10-14] VITALS (10 sets, daily range): BP systolic 113–124; BP diastolic 60–77; PULSE 73–105; BMI 37.5
--- OUTSIDE RECORDS SUMMARY | 2024-10-14 11:56 | XMS_ITS | Patient Health Summary ---
Author Organization [facility] [employer] Address [address] [place] [address] Care Team Providers Care Chore Tender Name Role Phone Unavailable Primary Care Provider Unavailabl e Note from [facility],non-owned Affiliates and Associated Physician Practices is amultiple site organization consisting of ambulatory clinics and hospital sitesin [place], [place], [place] and [place]. This disclosure is being madepursuant to the Care Everywhere program and may not contain all information available regarding this patient. Last updated 18.[facility] [employer] Allergies * Augmentin(Urticaria) -Medium Criticality Social History [...] Unknown 04/23/2019 2:24 PM CDT Darrick Rajan APRN-ENTRY LEVEL LAB - POINT OF CA RE ORDERABLES
--- OUTSIDE RECORDS SUMMARY | 2024-10-14 11:56 | XMS_ITS | Clinical Summary ---
Author Organization [facility] [employer] Address [address] [place] [address] Care Team Providers Care Machine Engineer Name Role Phone Unavailable Primary Care Provider Unavailabl e Source Comments [facility] [employer],non-owned Affiliates and Associated Physician Practices is amultiple site organization consisting of ambulatory clinics and hospital sitesin [place], [place], [place] and [place]. This disclosure is being madepursuant to the Care Everywhere program and may not contain all information available regarding this patient. Last updated 18.[employer] Allergies Active Allergy Reactions Criticality Noted Date [...] patient's age to complete this topic MENINGOCOCCAL (Group B) VACCINE Aged Out No longer eligible based on patient's age to complete this topic MENINGOCOCCAL VACCINE Aged Out No jorge mp eligible based on patient's age to complete this topic PNEUMOCOCCAL VACCINE Aged Out No long er eligible based on patient's age to complete this topic PATRICIA COLON Personal/Family [address] [place] [address] PATRICIA COLON Personal/Family [address] [place] [address] PATRICIA COLON Personal/Family [address] [place] [address] Patricia Colon Personal/Family Self 1995 [address] [place] [address]
--- OUTSIDE RECORDS SUMMARY | 2024-10-14 11:56 | XMS_ITS | Referral Summary ---
Author Organization [facility] Address [address] [place] [address] Care Team Providers Care Job Molder Name Role Phone Unavailable Primary Care Provider Unavailabl e Source Comments [facility],non-owned Affiliates and Associated Physician Practices is amultiple site organization consisting of ambulatory clinics and hospital sitesin [place], [place], [place] and [place]. This disclosure is being madepursuant to the Care Everywhere program and may not contain all information available regarding this patient. Last updated 18.[facility] [employer] Allergies Active Allergy Reactions Criticality Noted Date Comments Augmentin Urticaria Medium 04/20/2019 Social History Tobacco Use Types Packs/Day Years Used Date Smoking Tobacco: Never Assessed Sex and Gender Information Value Date Recorded Sex Assigned at Not on file Gender Identity Not on file Sexual Orientation Not on file Plan of Treatment Not on file Administered Medications PATRICIA COLON Personal/Family [address] [place] [address] PATRICIA COLON Personal/Family [address] [place] [address] PATRICIA COLON Personal/Family [address] [place] [address] Ptaricia Colon Personal/Family Self 1995 [address] [place] [address]
[2024-10-14 12:23] LABS: Basophils Absolute Auto 0.1 K/mm3 (0.0-0.1); Basophils Percent Auto 0.5 % (0.2-1.2); Eosinophils Absolute Auto 0.1 K/mm3 (0-0.3); Eosinophils Percent Auto 0.6 % (0-4.4); Hematocrit 34.2 % (37.0-47.0); Immature Granulocyte Absolute 0.05 K/mm3 (0.00-0.031); Immature Granulocyte Percent A 0.5 % (0-0.5); Lymphocytes Absolute Auto 2.03 K/mm3 (0.9-3.2); Lymphocytes Percent Auto 18.7 % (18.3-44.2); Mean Corpuscular HGB Conc 32.2 g/dl (32-36); Mean Corpuscular Hemoglobin 26.8 pg (26-34); Mean Corpuscular Volume 83.4 fl (80-100); Mean Platelet Volume 10.2 fl (7.4-10.4); Monocytes Absolute Auto 0.8 K/mm3 (0.1-0.6); Monocytes Percent Auto 7.1 % (2.6-8.5); Neutrophils Absolute Auto 7.9 K/mm3 (1.3-6.7); Neutrophils Percent Auto 72.6 % (45.5-73.1); Platelet Count Result 328 k/mm3 (150-375); Red Cell Distribution Width 12.5 % (11.5-14.5); White Blood Count 10.9 K/mm3 (4.5-10.0)
[2024-10-14 12:25] LABS: Add Urine Microscopic? YES; Appearance Urine Clear (Clear); Bacteria Urine 1+ /hpf; Bilirubin Urine Negative (Negative); Blood Urine Negative (Negative); Color Urine Yellow (Yellow); Glucose Urine UA Negative (Negative); Ketones Urine Negative (Negative); Leukocyte Esterase Ur 2+ LEU/UL (Negative); Nitrate Urine Negative (Negative); Non Pathogenic Casts 0-2; Protein Urine Negative (Negative); RBC Urine 0-2 /hpf (0-2); Specific Grav Ur 1.004 (1.001-1.035); Squamous Epithelial Cell Urine Few /hpf (Few); Urobilinogen Urine 0.2 mg/dL (<2.0); WBC Urine 21-50 /hpf (0-3)
[2024-10-14 12:30] LABS: Creatinine Urine 20.3 mg/dL; Total Protein Urine Random 16 mg/dL; Ur Ttl Prot Creatinine Ratio 0.79 mg/mg (0-0.20)
[2024-10-14 12:37] LABS: Alanine Aminotransferase 16 U/L (6-35); Albumin Level 3.7 g/dL (3.5-5.1); Alkaline Phosphatase 139 U/L (38-126); Anion Gap 10 mmol/L (4-12); Aspartate Amino Transferase 12 U/L (14-36); Blood Urea Nitrogen 7 mg/dL (7-17); Calcium 9.3 mg/dL (8.4-10.2); Carbon Dioxide 23 mmol/L (22-30); Chloride 105 mmol/L (98-107); Estimated CRCL calculation 188 ml/min; Estimated Glomerular Filt Rate > 60; Glucose 71 mg/dL (65-110); Potassium 4.3 mmol/L (3.4-5.0); Sodium 138 mmol/L (137-145); Uric Acid 3.5 mg/dL (2.5-7.5)
[2024-10-14] MEDS: ACETAMINOPHEN 500 MG TABLET 1000 MG PO (12:49)
--- NOTE | 2024-10-14 12:58 | PC.NURSE ---
Dr. Pace returned call and updated on BP's and lab results. Discussed FHR tracing- baby was running FHR 150 and had a 2 min where FHT's were 130-140, FHT's became reactive and baby just had a 30 sec variable decel down to 90. Order received to continue monitoring FHT's for another hour and if no further decels, may discharge to home to complete a 24 hr urine.
== END 2024-10-14 14:05 | disposition home or self-care (01) ==
LOC: ANHOBOP 11:52 → ANHOBPP 11:53
PROVIDERS: PCP Nurse Practitioner; Visit Provider Obstetrics & Gynecology Gynecology
DX: O13.9 Gestational [pregnancy-induced] hypertension without significant proteinuria, unspecified trimester (principal); Z3A.00 Weeks of gestation of pregnancy not specified
CPT/HCPCS: 36415; 59025; 80053; 81001; 82570; 84156; 84550; 85025; 87086; 99199; A9270

== ENCOUNTER 2024-10-15 12:25 | Outpatient (NON) | payer OTHER, SELFPAY ==
[2024-10-15 12:25] VITALS: BMI 37.5
--- OUTSIDE RECORDS SUMMARY | 2024-10-15 12:32 | XMS_ITS | Clinical Summary ---
Author Organization [facility] [employer] Address [address] [place] [address] Care Team Providers Care Cardiac Cath Lab Manager Name Role Phone Unavailable Primary Care Provider Unavailabl e Source Comments [facility] [employer],non-owned Affiliates and Associated Physician Practices is amultiple site organization consisting of ambulatory clinics and hospital sitesin [place], [place], [place] and [place]. This disclosure is being madepursuant to the Care Everywhere program and may not contain all information available regarding this patient. Last updated 18.[employer] Allergies Active Allergy Reactions Criticality Noted Date [...] complete this topic PATRICIA COLON Personal/Family [address] [place] [address] PATRICIA COLON Personal/Family [address] [place] [address] PATRICIA COLON Personal/Family [address] [place] [address] Patricia Colon Personal/Family Self 1995 [address] [place] [address]
--- OUTSIDE RECORDS SUMMARY | 2024-10-15 12:32 | XMS_ITS | Patient Health Summary ---
Author Organization [facility] [employer] Address [address] [place] [address] Care Team Providers Care It Telecom Technician Name Role Phone Unavailable Primary Care Provider Unavailabl e Note from [facility],non-owned Affiliates and Associated Physician Practices is amultiple site organization consisting of ambulatory clinics and hospital sitesin [place], [place], [place] and [place]. This disclosure is being madepursuant to the Care Everywhere program and may not contain all information available regarding this patient. Last updated 18.[facility] [employer] Allergies * Augmentin(Urticaria) -Medium Criticality Social History [...] Unknown 04/23/2019 2:24 PM CDT Darrick Rajan APRN-JOURNEYMAN MEAT CUTTER LAB - POINT OF CA RE ORDERABLES
--- OUTSIDE RECORDS SUMMARY | 2024-10-15 12:32 | XMS_ITS | Referral Summary ---
Author Organization [facility] Address [address] [place] [address] Care Team Providers Care Farmworker Grain Name Role Phone Unavailable Primary Care Provider Unavailabl e Source Comments [facility],non-owned Affiliates and Associated Physician Practices is amultiple site organization consisting of ambulatory clinics and hospital sitesin [place], [place], [place] and [place]. This disclosure is being madepursuant to the Care Everywhere program and may not contain all information available regarding this patient. Last updated 18.[facility] [employer] Allergies Active Allergy Reactions Criticality Noted Date Comments Augmentin Urticaria Medium 04/20/2019 Social History Tobacco Use Types Packs/Day Years Used Date Smoking Tobacco: Never Assessed Sex and Gender Information Value Date Recorded Sex Assigned at Not on file Gender Identity Not on file Sexual Orientation Not on file Plan of Treatment Not on file Administered Medications PATRICIA COLON Personal/Family [address] [place] [address] PATRICIA COLON Personal/Family [address] [place] [address] PATRICIA COLON Personal/Family [address] [place] [address] Patricia Colon Personal/Family Self 1995 [address] [place] [address]
[2024-10-15 12:57] LABS: Total Volume 24 Hour Urine 1950 ml
[2024-10-15 13:04] LABS: Total Protein Urine 24 Hr 214 mg/24hr (28-141); Total Protein Urine Random 11 mg/dL
[2024-10-15 13:05] LABS: Creatinine 24 Hour Urine 1.3 gm/24 (0.8-1.8); Creatinine Urine 70.9 mg/dL
== END 2024-10-15 12:26 | disposition home or self-care (01) ==
LOC: ANHOBOP 12:29
PROVIDERS: PCP Nurse Practitioner; Visit Provider Obstetrics & Gynecology Gynecology
DX: O13.9 Gestational [pregnancy-induced] hypertension without significant proteinuria, unspecified trimester (principal); Z3A.00 Weeks of gestation of pregnancy not specified
CPT/HCPCS: 81050; 82570; 84156

== ENCOUNTER 2024-10-21 11:46 | Outpatient (CLI) | payer OTHER, SELFPAY ==
--- OUTSIDE RECORDS SUMMARY | 2024-10-21 11:51 | XMS_ITS | Clinical Summary ---
Author Organization [facility] [employer] Address [address] [place] [address] Care Team Providers Care Sheepskin Pickler Name Role Phone Unavailable Primary Care Provider Unavailabl e Source Comments [facility] [employer],non-owned Affiliates and Associated Physician Practices is amultiple site organization consisting of ambulatory clinics and hospital sitesin [place], [place], [place] and [place]. This disclosure is being madepursuant to the Care Everywhere program and may not contain all information available regarding this patient. Last updated 18.[employer] Allergies Active Allergy Reactions Criticality Noted Date [...] complete this topic PATRICIA COLON Personal/Family [address] [place] [address] PATRICIA COLON Personal/Family [address] [place] [address] PATRICIA COLON Personal/Family [address] [place] [address] Patricia Colon Personal/Family Self 1995 [address] [place] [address]
--- OUTSIDE RECORDS SUMMARY | 2024-10-21 11:51 | XMS_ITS | Patient Health Summary ---
Author Organization [facility] [employer] Address [address] [place] [address] Care Team Providers Care Truck Driver Supervisor Name Role Phone Unavailable Primary Care Provider Unavailabl e Note from [facility],non-owned Affiliates and Associated Physician Practices is amultiple site organization consisting of ambulatory clinics and hospital sitesin [place], [place], [place] and [place]. This disclosure is being madepursuant to the Care Everywhere program and may not contain all information available regarding this patient. Last updated 18.[facility] [employer] Allergies * Augmentin(Urticaria) -Medium Criticality Social History [...] Unknown 04/23/2019 2:24 PM CDT Darrick Rajan APRN-EYEGLASS FRAMES INSPECTOR LAB - POINT OF CA RE ORDERABLES
--- OUTSIDE RECORDS SUMMARY | 2024-10-21 11:51 | XMS_ITS | Referral Summary ---
Author Organization [facility] Address [address] [place] [address] Care Team Providers Care Cullet Washer Name Role Phone Unavailable Primary Care Provider Unavailabl e Source Comments [facility],non-owned Affiliates and Associated Physician Practices is amultiple site organization consisting of ambulatory clinics and hospital sitesin [place], [place], [place] and [place]. This disclosure is being madepursuant to the Care Everywhere program and may not contain all information available regarding this patient. Last updated 18.[facility] [employer] Allergies Active Allergy Reactions Criticality Noted Date Comments Augmentin Urticaria Medium 04/20/2019 Social History Tobacco Use Types Packs/Day Years Used Date Smoking Tobacco: Never Assessed Sex and Gender Information Value Date Recorded Sex Assigned at Not on file Gender Identity Not on file Sexual Orientation Not on file Plan of Treatment Not on file Administered Medications PATRICIA COLON Personal/Family [address] [place] [address] PATRICIA COLON Personal/Family [address] [place] [address] PATRICIA COLON Personal/Family [address] [place] [address] Patricia Colon Personal/Family Self 1995 [address] [place] [address]
[2024-10-21 12:16] VITALS: BP 162/98; PULSE 103
[2024-10-21 12:18] VITALS: BP 134/84; PULSE 98
[2024-10-21 12:30] VITALS: BP 124/85; PULSE 93
[2024-10-21 12:34] LABS: Basophils Percent Auto 0.4 % (0.2-1.2); Eosinophils Absolute Auto 0.1 K/mm3 (0-0.3); Eosinophils Percent Auto 0.7 % (0-4.4); Hematocrit 32.6 % (37.0-47.0); Hemoglobin 10.3 g/dL (12.0-15.0); Immature Granulocyte Absolute 0.06 K/mm3 (0.00-0.031); Immature Granulocyte Percent A 0.5 % (0-0.5); Lymphocytes Absolute Auto 1.86 K/mm3 (0.9-3.2); Lymphocytes Percent Auto 16.9 % (18.3-44.2); Mean Corpuscular HGB Conc 31.6 g/dl (32-36); Mean Corpuscular Hemoglobin 26.2 pg (26-34); Mean Platelet Volume 10.4 fl (7.4-10.4); Monocytes Absolute Auto 0.9 K/mm3 (0.1-0.6); Monocytes Percent Auto 7.9 % (2.6-8.5); Neutrophils Absolute Auto 8.1 K/mm3 (1.3-6.7); Neutrophils Percent Auto 73.6 % (45.5-73.1); Platelet Count Result 319 k/mm3 (150-375); Red Blood Count 3.93 M/mm3 (4.2-5.4); Red Cell Distribution Width 12.5 % (11.5-14.5)
[2024-10-21 12:41] LABS: Add Urine Microscopic? YES; Appearance Urine Clear (Clear); Bacteria Urine Rare /hpf; Bilirubin Urine Negative (Negative); Blood Urine Negative (Negative); Color Urine Dark Yellow (Yellow); Glucose Urine UA Negative (Negative); Ketones Urine Trace mg/dL (Negative); Leukocyte Esterase Ur Negative LEU/UL (Negative); Nitrate Urine Negative (Negative); Non Pathogenic Casts 0-2; Protein Urine Trace mg/dL (Negative); RBC Urine 0-2 /hpf (0-2); Specific Grav Ur 1.029 (1.001-1.035); Squamous Epithelial Cell Urine Few /hpf (Few); WBC Urine 0-5 /hpf (0-3)
[2024-10-21 12:45] VITALS: BP 124/81; PULSE 97
[2024-10-21 12:45] LABS: Alanine Aminotransferase 13 U/L (6-35); Albumin Level 3.5 g/dL (3.5-5.1); Alkaline Phosphatase 125 U/L (38-126); Anion Gap 8 mmol/L (4-12); Aspartate Amino Transferase 10 U/L (14-36); Bilirubin,Total 0.8 mg/dL (0.2-1.3); Blood Urea Nitrogen 7 mg/dL (7-17); Calcium 9.1 mg/dL (8.4-10.2); Carbon Dioxide 23 mmol/L (22-30); Chloride 106 mmol/L (98-107); Estimated Glomerular Filt Rate > 60; Glucose 68 mg/dL (65-110); Potassium 3.6 mmol/L (3.4-5.0); Sodium 137 mmol/L (137-145); Uric Acid 3.8 mg/dL (2.5-7.5)
[2024-10-21 12:49] LABS: Creatinine Urine 196.4 mg/dL; Total Protein Urine Random 14 mg/dL; Ur Ttl Prot Creatinine Ratio 0.07 mg/mg (0-0.20)
[2024-10-21 13:00] VITALS: BP 120/78; PULSE 89
--- NOTE | 2024-10-21 13:00 | PC.NURSE ---
Dr Pace notified of lab results, BP's and reactive NST. OK to dc home with precautions.
[2024-10-21 13:06] VITALS: PULSE 86
== END 2024-10-21 13:06 | disposition home or self-care (01) ==
LOC: ANHOBOP 11:50 → ANHOBPP 11:52
PROVIDERS: PCP Nurse Practitioner; Visit Provider Obstetrics & Gynecology Gynecology
DX: O13.9 Gestational [pregnancy-induced] hypertension without significant proteinuria, unspecified trimester (principal); Z3A.00 Weeks of gestation of pregnancy not specified
CPT/HCPCS: 36415; 59025; 80053; 81001; 82570; 84156; 84550; 85025; 99199

== ENCOUNTER 2024-11-01 05:56 | Inpatient (IN) | payer OTHER, SELFPAY ==
[2024-11-01] VITALS (177 sets, daily range): BP systolic 100–171; BP diastolic 41–157; PULSE 63–142; RESP 16; TEMP 36.6–37.4; O2SAT 86–100; BMI 38.0
--- OUTSIDE RECORDS SUMMARY | 2024-11-01 06:06 | XMS_ITS | Data Portability ---
Author Organization [facility], Main Office Address [address] [place] [address] Care Team Providers Care Mortgage Sales Manager Name Role Phone Unavailable Referring Provider Unavailable THANH MARTIN Primary Care Provider [phone] Assessment No assessment recorded. Plan of Treatment Reminders Order Date Submit Date Provider Last Modified By Organization Details Last Modified Time Details Appointments None record ed. Lab None record ed. Referral None record ed. Procedures None record ed. Surgeries None record ed. Imaging None record ed. Medication Orders Lido5% /Dilt2 % 023 06/10/20 [facility], [address], [place], [place], [id number], 11:52:00 Patient TargetsNo targets recorded. Patient Instructions [...] prepping for her visit (reviewing shared records), [id number] with her and documenting. Not available 06/15/2023 [...] her visit (reviewing past and shared records), [id number] with her and documenting. 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 2022 Sofia Wetzel MD [address] [place] [address],[address] [place] [address], [address], [facility] [place] 3 14:10:13 Pile easily reducible 814618840 Active 202206/10/23: No tx - tx fissure Tx #1: 07/24/23 1.2 x 8 RP and 1.2 x 6 LL Tx #2: 09/18/23 1.2 x 5 RP, x 4 LL and x 4 RA Sofia Wetzel MD [address] [place] [address],[address], [place], [address], [facility] [place] 4 06:29:20 Constipation 83733981 Active 2022 Sofia Wetzel MD [facility], [place], [address], [facility] [place] 14:08:08 Problem Notes None recorded. Procedures Surgical History Date Name Laterality Status Provider Name and Address Organization Details Recorded Time 09/18/19 24 IRC completed Sofia Wetzel MD [address] [place] [address],[address], [place], [address], [facility] [place] 11/25/2023 06:27:18 07/24/20 23 IRC completed Sofia Wetzel MD [address] [place] [address],[address], [place], [address], [facility] [place] 07/25/2023 14:04:11 09/08/19 23 Date of Last Pap Smear completed ALETA PASCUAL [facility] 06/10/2023 16:02:32 06/29/20 06 Tonsillectomy completed Sofia Wetzel MD [address] [place] [address],[address], [place], [address], [facility] 06/14/2023 16:12:41 Imaging Results None recorded. Procedure Notes None recorded. Medical Equipment None Reported. Allergies Allergen ID Allergen Name Allergen Category Reaction Reaction Severity Criticality Documentation Date Start Date Code Code System Note Provider Name and Address Organization Details Recorded Time 9212 Augmentin medicatio n Not available Not available Not available 06/10/2023 65603 2 RxNorm Not Available Not Available Not Available Medications Name Sig Start Date Stop Date Status Note LastModified by Organization Details LastModified Time Lido5%/Dilt 2% Apply pea-sized amount to anal opening with finger tip as directed up to 5 times daily prn 2022 active Not Available Not Available Not Avai lable lidocaine 5%/diltiaze m 2% #41006 5%/2% cream Apply pea-sized AMOUNT TO anal [...] Time Tobacco Smoking Status Never Smoker ALETA PASCUAL [facility] [place] 06/10/2023 16:01:49 Alcohol Use No [email or web address] Information not available 06/10/2023 Caffeine Use Yes [email or web address] Information not available 06/10/2023 Caffeine Type Coffee [email or web address] Informatio n not available 06/10/2023 Caffeine Amount 200mg [email or web address] Information not available 06/10/2023 Illicit Drug Use No [email or web address] Information not available 06/10/2023 What Was The Date Of Your Most Recent Tobacco Screening? 09/18/2023 [email or web address] Information not available 09/18/2023 Do You Or Have You Ever Used Any Other Forms Of Tobacco Or Nicotine? No [email or web address] Information not available 06/10/2023 Sex: Unknown Functional Status None recorded. Mental Status None recorded. Family History Relationship Description Onset Age of this Age Resolved Age Notes LastModified by Organization Details LastModified Time Maternal Grandmother Malignant tumor of colon 55 80 [email or web address] Not available 11/2022 16:00:53 Maternal Grandmother Hypertensive disorder 60 [email or web address] Not available 11/2022 16:01:21 Unspecified Relation Malignant tumor of colon 55 80 matern al great grandm a [email or web address] Not available 06/10/2023 16:00:53 Paternal Grandmother Malignant tumor of breast 70 [email or web address] Not available 11/2022 16:01:10 Maternal Grandfather Diabetes mellitus 80 Not available 11/2022 16:01:31 Father No current problems or disability Not available 06/15 08:31:27 Mother No current problems or disability Not available 06/15 08:31:27 Medical History Condition Response Coronary Artery Disease N Other Y Atrial Fibrillation N Kidney Stones N Hyperthyroidism N Hernia N Hypothyroidism N Glaucoma N Depression N COPD N Accidental Bowel Leakage N Headaches/Migraines Y Deep Vein Thrombosis N Cardiac Dysrhythmia N Anxiety Disorder N MRSA/VRE Exposure N Genital Herpes N Diverticulosis N Cancer N Stroke N Head Trauma N Genital Warts N Crohn's Disease N Liver Disease/Hepatitis N HIV/AIDS N High Cholesterol N Irritable Bowel Syndrome N Kidney Disease N Autoimmune Disease N Anemia N Celiac Disease N Arthritis/Gout N Anal/Rectal Trauma/Injury N Diabetes N Cataracts N Bleeding Disorder N Seizures/Epilepsy N Congestive Heart Failure (CHF) N Diverticulitis N Heart Attack N Asthma N Reflux/GERD Y Ulcerative Colitis N Sleep Apnea N Mitral Valve Prolapse N Aneurysm N Heart Disease N Pulmonary Embolism N Hypertension N Colon/Rectal Polyps N Gynecological [...] SNOMED-CT Code Diagnosis ICD10 Code Diagnosis Note [id number] Sofia Wetzel MD Main Office [address] [place] [address] 06/10/2023 15:21:44 06/10/2023 16:35:42 Chronic anal fissure 269349531 K60.1 I discussed fissures with her. I [...] dose works to maintain daily and soft ([place] Scale type 4) BM's, she should take it daily and forever. External hemorrhoids 239 18106 K64.4 I discussed hemorrhoid s in general [...] Sofia Wetzel MD Main Office [address] [address] 07/24/2023 15:05:22 07/24/2023 15:47:46 Pile easily reducible 637521222 K64.1 Stage 2 internal hemorrhoid s: I [...] LL internal hemorrhoid s. External hemorrhoids 239 94427 K64.4 These will improve with IRC. She understand s the only way to directly treat external hemorrhoid s would be with a surgical excision. She does not wish to pursue this and her hemorrhoid s are not bad enough to warrant surgery. She should continue using the moist baby wipes. She did change to a gentle soap. Chronic anal fissure 197 640369 K60.1 This is much better with the [...] days before and after every treatment. Constipation 31564003 K5 9.00 She of course needs to consistent ly eat a high fiber diet and drink plenty of water. I advised that she continue the Bene Fiber and Miralax at whatever dose works to maintain daily and soft ([place] Scale type 4) BM's. She is currently doing well with 1/2 - 1 tsp of Bene Fiber and 3 tsps of Miralax daily. She should take these daily and forever. Sofia Wetzel MD Main Office [address] [place] [address] 09/18/2023 15:08:21 09/18/2023 15:40:02 Pile easily reducible 205293239 K64.1 Stage 2 internal hemorrhoid s: She has done well with IRC. Her 2nd and final treatment was done today on all 3 internal hemorrhoid s. External hemorrhoids 239 42868 K64.4 These have improved with IRC. She understand s the only way to directly treat external hemorrhoid s would be with a surgical excision. She does not wish to pursue this and her hemorrhoid s are not bad enough to warrant surgery. She should continue using the moist baby wipes. She did change to a gentle soap. Chronic anal fissure 197 787194 K60.1 This has healed with the compound, treating her constipati on and also treating her hemorrhoid s. I discussed with her again that even if the fissure heals completely it is always a weak area and can become recurrent. She should keep the compound on hand to use if she has these recurrent problems. Constipation 05274348 K5 9.00 She of course needs to consistent ly eat a high fiber diet and drink plenty of water. I advised that she continue the Bene Fiber and Miralax at whatever dose works to maintain daily and soft ([place] Scale type 4) BM's. She is currently [...] Moreno Member ID Guarantor Name 06/10/2023 1 [facility] [id number] Bandar Luh [place] [id number] [facility] 07/24/2023 1 [facility] [id number] [facility] [id number] [facility] 09/18/2023 1 [facility] [id number] [facility] [id number] [facility] Notes Date Note Type Note [...] are daily. They are not always soft ([place] Scale type 3 - occasionally type 4). She tries to consistently eat a high fiber diet and drink plenty of water. Sofia Wetzel MD [address], [place], [address], [facility] 06/15/2023 08:45:37 07/24/2023 text/html [...] daily. Her BM's are daily and soft ([place] Scale type 4). Even if her BM [...] are daily. They are not always soft ([place] Scale type 3 - occasionally type 4). She tries to consistently eat a high fiber diet and drink plenty of water. Sofia Wetzel MD [facility] [facility],[address], [place], [address], [facility] 07/25/2023 14:11:42 09/18/2023 text/html [...] daily. Her BM's are daily and soft ([place] Scale type 4). Even if her BM [...] are daily. They are not always soft ([place] Scale type 3 - occasionally type 4). She tries to consistently eat a high fiber diet and drink plenty of water. Sofia Wetzle MD [address], [place], [address], [facility] 11/25/2023 06:29:42 OBGyn Episode No OBEpisode recorded.
--- OUTSIDE RECORDS SUMMARY | 2024-11-01 06:06 | XMS_ITS | Clinical Summary ---
Author Organization [facility] Address [address] [place] [address] Care Team Providers Care Chief Pilot Name Role Phone Unavailable Primary Care Provider Unavailabl e Source Comments [facility],non-owned Affiliates and Associated Physician Practices is amultiple site organization consisting of ambulatory clinics and hospital sitesin [place], [place], [place] and [place]. This disclosure is being madepursuant to the Care Everywhere program and may not contain all information available regarding this patient. Last updated 18.[employer] [facility] Allergies Active Allergy Reactions Criticality Noted Date [...] on patient's age to complete this topic PARTICIA COLON Personal/Family [address] [place] [address] PATRICIA COLON Personal/Family [address] [place] [address] PATRICIA COLON Personal/Family [address] [place] [address] Patricia Colon Personal/Family Self 1995 [address] [place] [address]
--- OUTSIDE RECORDS SUMMARY | 2024-11-01 06:07 | XMS_ITS | Patient Health Summary ---
Author Organization [facility] Address [address] [place] [address] Care Team Providers Care Optical Glass Inspector Name Role Phone Unavailable Primary Care Provider Unavailabl e Note from [facility],non-owned Affiliates and Associated Physician Practices is amultiple site organization consisting of ambulatory clinics and hospital sitesin [place], [place], [place] and [place]. This disclosure is being madepursuant to the Care Everywhere program and may not contain all information available regarding this patient. Last updated 18.[facility] Allergies * Augmentin(Urticaria) -Medium Criticality Social History [...] Unknown 04/23/2019 2:24 PM CDT Darrick Rajan APRN-PACKING AND WRAPPING SUPERVISOR LAB - POINT OF [place] RE ORDERABLES
--- OUTSIDE RECORDS SUMMARY | 2024-11-01 06:07 | XMS_ITS | Referral Summary ---
Author Organization [facility] Address [address] [place] [address] Care Team Providers Care Drapery Head Former Name Role Phone Unavailable Primary Care Provider Unavailabl e Source Comments [facility],non-owned Affiliates and Associated Physician Practices is amultiple site organization consisting of ambulatory clinics and hospital sitesin [place], [place], [place] and [place]. This disclosure is being madepursuant to the Care Everywhere program and may not contain all information available regarding this patient. Last updated 18.[facility] [employer] Allergies Active Allergy Reactions Criticality Noted Date Comments Augmentin Urticaria Medium 04/20/2019 Social History Tobacco Use Types Packs/Day Years Used Date Smoking Tobacco: Never Assessed Sex and Gender Information Value Date Recorded Sex Assigned at Not on file Gender Identity Not on file Sexual Orientation Not on file Plan of Treatment Not on file Administered Medications PATRICIA COLON Personal/Family [address] [place] [address] PATRICIA COOLN Personal/Family [address] [place] [address] PATRICIA COLON Personal/Family [address] [place] [address] Patricia Colon Personal/Family Self 1995 [address] [place] [address]
[2024-11-01 06:45] LABS: Basophils Percent Auto 0.3 % (0.2-1.2); Eosinophils Percent Auto 0.3 % (0-4.4); Hematocrit 33.2 % (37.0-47.0); Hemoglobin 10.7 g/dL (12.0-15.0); Immature Granulocyte Absolute 0.07 K/mm3 (0.00-0.031); Immature Granulocyte Percent A 0.6 % (0-0.5); Lymphocytes Absolute Auto 1.95 K/mm3 (0.9-3.2); Lymphocytes Percent Auto 15.8 % (18.3-44.2); Mean Corpuscular HGB Conc 32.2 g/dl (32-36); Mean Corpuscular Hemoglobin 25.8 pg (26-34); Mean Corpuscular Volume 80.2 fl (80-100); Mean Platelet Volume 10.5 fl (7.4-10.4); Monocytes Absolute Auto 0.7 K/mm3 (0.1-0.6); Monocytes Percent Auto 5.9 % (2.6-8.5); Neutrophils Absolute Auto 9.5 K/mm3 (1.3-6.7); Neutrophils Percent Auto 77.1 % (45.5-73.1); Platelet Count Result 319 k/mm3 (150-375); Red Blood Count 4.14 M/mm3 (4.2-5.4); Red Cell Distribution Width 12.6 % (11.5-14.5); White Blood Count 12.3 K/mm3 (4.5-10.0)
[2024-11-01 06:55] LABS: Alanine Aminotransferase 16 U/L (6-35); Albumin Level 3.5 g/dL (3.5-5.1); Alkaline Phosphatase 148 U/L (38-126); Anion Gap 14 mmol/L (4-12); Aspartate Amino Transferase 13 U/L (14-36); Bilirubin,Total 1.1 mg/dL (0.2-1.3); Blood Urea Nitrogen 5 mg/dL (7-17); Calcium 9.1 mg/dL (8.4-10.2); Carbon Dioxide 18 mmol/L (22-30); Chloride 106 mmol/L (98-107); Estimated Glomerular Filt Rate > 60; Glucose 102 mg/dL (65-110); Potassium 3.7 mmol/L (3.4-5.0); Sodium 138 mmol/L (137-145); Uric Acid 4.4 mg/dL (2.5-7.5)
[2024-11-01] MEDS: LACTATED RINGERS 1,000 ML 125 ML IV CONT ×3 (06:57→11:02)
[2024-11-01] MEDS: OXYTOCIN 30 UNITS/NS 500 ML 30 UNITS/500 ML BAG IV CONT (07:01)
--- NOTE | 2024-11-01 07:08 | LDADM ---
This patient, Phyllis Lindsey, was admitted to Labor/Delivery/Recovery 107 on 11/01/24 at 05:56. Plans for labor, pain management and were discussed with patient. Patient/family oriented to hospital policies and general routines including ID bracelet, bed and alarms, visiting hours, pain management, procedures, bathroom and other care routines, personal items, smoking policy, room service/diet and guest tray routines, security routines, and visiting hours. Patient/Family are encouraged to report perceived risks to care and to ask questions if they do not understand what they are told or what they should do. See OBIX for further documentation.
[2024-11-01 07:40] LABS: Syphilis IgG/IgM Antibody Negative (Negative)
--- NOTE | 2024-11-01 07:44 | WPDOBADMIT ---
Obstetrics - Admit Note Admission Note: record reviewed. No pertinent additions to the history and/or any subsequent changes in the physical findings that are not consistent with the expected course of the were found. Additions to the history and/or subsequent changes in the physical findings follow. MIL at 39 wks for gestational HTN. Cervix 3-4/50/-2 AROM with clear fluid. FHTs cat I. Pitocin per protocol
[2024-11-01 10:38] LABS: HIV 1/2 Ab P24 Ag Result Negative (Negative)
[2024-11-01] MEDS: ONDANSETRON INJ 4 MG/2 ML VIAL IV PUSH (17:25)
--- NOTE | 2024-11-01 18:03 | P.PCNOB_ITS ---
OB - Vaginal Delivery Note Procedure Delivery date: 11/01/24 Events: Gestational Hypertension Induction method: AROM and Per Pitocin Protocol Delivery monitor: External FHT and Internal Uterine Route of delivery: Episiotomy description: None Laceration Description: Perineal - 1st Degree Delivery repair: vicryl (3-0) Specimen: No Quantitative Blood Loss (ml): 50 Anesthesia type: Epidural Disposition: PACU Complications: No immediate complications [place] Baby Date of : 11/01/24 Gestational Age by Date: 36 gender: Male presentation: vertex position: Right Occiput Anterior Placenta delivery description: Spontaneous Cord Vessel Description: 3 Vessels, Nuchal Cord (x2) and Delayed Cord Clamping score one minute: 8 score five minutes: 9
[2024-11-01] MEDS: OXYTOCIN 30 UNITS/NS 500 ML 30 UNITS/500 ML BAG 125 UNITS IV CONT (18:30)
[2024-11-01] MEDS: WITCH HAZEL 40 PADS 1 PAD TOPICAL (19:16)
[2024-11-01] MEDS: BENZOCAINE 20% AER SPR (*SP) 56 GM CAN 1 SPRAY TOPICAL (19:16)
[2024-11-01] MEDS: IBUPROFEN 600 MG TABLET PO (21:07)
[2024-11-01] MEDS: ACETAMINOPHEN 325 MG TABLET 650 MG PO (21:07)
[2024-11-02 00:40] VITALS: BP 109/47; PULSE 64; RESP 12; TEMP 36.6; O2SAT 100
[2024-11-02] MEDS: ACETAMINOPHEN 325 MG TABLET 650 MG PO ×2 (03:48→21:25)
[2024-11-02] MEDS: IBUPROFEN 600 MG TABLET PO (03:48)
[2024-11-02 03:58] VITALS: BP 119/61; PULSE 67; RESP 14; TEMP 36.3; O2SAT 100
--- NOTE | 2024-11-02 04:26 | PC.NURSE ---
2045- Pt and infant admitted to room #281, both mother and arrived in stable condition, no apparent distress, oriented to room, admission packet reviewed.
[2024-11-02 06:15] LABS: Hematocrit 30.7 % (37.0-47.0); Hemoglobin 9.6 g/dL (12.0-15.0)
[2024-11-02] MEDS: ACETAMINOPHEN/ASPIRIN/CAFFEINE 250-250-65 MG TABLET 1 TABLET PO ×2 (07:11→13:07)
[2024-11-02] MEDS: DOCUSATE SODIUM 100 MG CAPSULE PO ×2 (07:12→17:10)
[2024-11-02] MEDS: POLYSACCHARIDE IRON COMPLEX 150 MG CAPSULE PO ×2 (07:12→17:10)
--- NOTE | 2024-11-02 07:31 | P.PNOB_ITS ---
OB - PN: Subj Subjective Date/time seen: 11/02/24 07:31 Patient comments: no complaints and pain well controlled baby status: doing well and other (No H&P yet so no circ allowed until later. I will return to do circ when able.) OB - PN: Obj Data Labs 11/02/24 03:50 11/01/24 06:36 Labs: Laboratory Results - last 24 hr 11/01/24 11/02/24 06:36 03:50 Hgb 9.6 L Hct 30.7 L Syphilis IgG/IgM Ab Negative HIV 1&2 Ab/P24 Ag 4thGn Negative Blood Type A Negative A Negative Antibody Screen Positive Antibody Identification Passive Due to RH Imm Glob Antigen Identification Not Reportable MAYE, IgG Interpret Neg MAYE, Poly Interpret Not Performed MAYE, Complement Interp Negative OB - PN A/P Plan day: 1 Plan: routine care, discharge home, follow up 6 weeks and other (condoms until vasectomy) Time Spent With Patient Time: Total time spent is greater than 50% in coordination of care (as documented) at patient's floor/unit and/or counseling patient: Exam 2 : Bimanual exam- vagina & uterus: other (Uterus firm, nt @U)
[2024-11-02 07:40] VITALS: BP 137/80; PULSE 72; RESP 16; TEMP 36.5; O2SAT 100
--- NOTE | 2024-11-02 08:10 | PC.NURSE ---
On 11/02/24, the student, Joanne Contreras, provided care and completed [facility] documentation on this patient. I have reviewed the student's documentation and agree with the findings.
[2024-11-02] MEDS: RHO(D) IMMUNE GLOBULIN 300 MCG/2 ML SYRINGE IM (11:14)
--- NOTE | 2024-11-02 12:16 | P.DS_ITS ---
DS: Admitting Diagnosis Discharge Date 11/03/24 Admitting Diagnosis MIL gestational HTN 36 weeks DS: Discharge Diagnosis Discharge Diagnosis (1) (normal spontaneous vaginal delivery): Code(s): O80 - Encounter for full-term uncomplicated delivery Status: Acute OB - DS: Summary OB Procedures : NST, PIH Mgmt and Ultrasound OB Procedures Intrapartum: Spontaneous Vag Delivery OB Procedures: : None Peripartum Data Delivery Method: Natural Vaginal Laceration Description: Perineal - 1st Degree Episiotomy description: None complications: none Status at Discharge Functional status at discharge: independent ambulation Overall status at discharge: patient is progressing back to baseline Time Spent with Patient Time attestation: Total time spent providing and/or coordinating discharge services: DS: Data Data Completed and Pending Labs on day of discharge: Labs from last 24 hours 11/02/24 03:50 Hgb 9.6 L Hct 30.7 L Blood Type A Negative Antibody Screen Negative Screen Negative Baby's Blood Type A pos Baby's MAYE Negative Doses of RhIg Required 1 Discharge Plan Discharge Attending physician on discharge: Nery Pace Discharging Clinician: Nery Pace Anticipated Discharge Date/Time: 11/03/24 12:17 Patient Disposition: Home, Self-Care Activity: may shower and pelvic rest Diet: as tolerated Patient Instructions: Antibiotic Form Patient Language: Lebanese Stand Alone Forms: General Discharge Information Follow-up/Referrals: Nery Pace MD [Physician] - 6 Weeks Discharge Medications: New polysaccharide iron complex 150 mg iron Capsule 150 mg PO BIDWM Qty: 60 1RF Continued polyethylene glycol 3350 [Miralax] 17 gram/dose powder 17 g PO DAILY PRN (Reason: Constipation) DHA 200 mg capsule 200 mg PO DAILY cholecalciferol (vitamin D3) 100 mcg (4,000 unit) tablet 100 mcg PO DAILY famotidine [Pepcid AC] 10 mg tablet 10 mg PO BID PRN (Reason: heartburn) calcium carbonate [Tums] 200 mg calcium (500 mg) Tablet,Chewable 200 mg PO QID PRN (Reason: Indigestion) Discontinued aspirin 81 mg tablet,delayed release (DR/EC) 81 mg PO DAILY Date of admission: 11/01/24 05:56 Primary Care Provider: Sue Tejeda Admitting Provider: Nery Pace Attending physician on admission: Nery Pace Condition: Stable
[2024-11-02 12:25] VITALS: BP 113/78; PULSE 65; RESP 16; TEMP 36.4; O2SAT 99
[2024-11-02 15:00] VITALS: BP 129/69
[2024-11-02 21:16] VITALS: BP 124/68; PULSE 75; RESP 18; TEMP 36.9; O2SAT 99
[2024-11-03 00:32] VITALS: BP 119/59; PULSE 70; O2SAT 98
[2024-11-03 05:22] VITALS: BP 124/75; PULSE 69; O2SAT 99
--- NOTE | 2024-11-03 07:21 | P.PNOB_ITS ---
OB - PN: Subj Subjective Date/time seen: 11/03/24 07:21 Patient comments: no complaints and pain well controlled baby status: doing well OB - PN: Obj Data Labs 11/02/24 03:50 11/01/24 06:36 Labs: Laboratory Results - last 24 hr 11/02/24 03:50 Blood Type A Negative Antibody Screen Negative Screen Negative Baby's Blood Type A pos Baby's MAYE Negative Doses of RhIg Required 1 OB - PN A/P Plan day: 2 Plan: routine care, discharge home and follow up 6 weeks Time Spent With Patient Time: Total time spent is greater than 50% in coordination of care (as documented) at patient's floor/unit and/or counseling patient: Exam 2 : Bimanual exam- vagina & uterus: other (Uterus firm, nt @U)
[2024-11-03 07:35] VITALS: BP 128/79; PULSE 79; RESP 15; TEMP 36.3; O2SAT 100
[2024-11-03] MEDS: POLYSACCHARIDE IRON COMPLEX 150 MG CAPSULE PO (08:01)
[2024-11-03] MEDS: IBUPROFEN 600 MG TABLET PO (08:02)
[2024-11-03] MEDS: DOCUSATE SODIUM 100 MG CAPSULE PO (08:02)
[2024-11-03] MEDS: MULTIVIT/MIN/PREN/FOL AC/IRON TABLET 1 TAB PO (08:12)
--- NOTE | 2024-11-03 10:28 | PC.NURSE ---
On 11/03/24, the student, Danny Ayala, provided care and completed [facility] documentation on this patient. I have reviewed the student's documentation and agree with the findings.
[2024-11-03 12:02] VITALS: BP 119/59; PULSE 78; RESP 16; TEMP 37.1; O2SAT 98
[2024-11-04 11:12] VITALS: BP 118/76; PULSE 82; RESP 18; TEMP 36.6; O2SAT 99
== END 2024-11-03 15:25 | disposition home or self-care (01) | DRG 807 ==
LOC: ANHLDR 06:04 → ANHOB2 20:35
PROVIDERS: Admitting Provider Obstetrics & Gynecology Gynecology; PCP Nurse Practitioner; Visit Provider Obstetrics & Gynecology Gynecology
DX: O13.4 Gestational [pregnancy-induced] hypertension without significant proteinuria, complicating childbirth (principal); Z37.0 Single live birth; Z3A.36 36 weeks gestation of pregnancy; O70.0 First degree perineal laceration during delivery; O69.81X0 Labor and delivery complicated by cord around neck, without compression, not applicable or unspecified
CPT/HCPCS: 36415; 80053; 84550; 85014; 85018; 85025; 85461; 86593; 86703; 86850; 86880; 86900; 86901; 86902; 90384; A9270; G0432; J2405; J2590; J2790; J2795; J7120

== ENCOUNTER 2024-11-20 08:06 | Emergency (ER) | payer OTHER, SELFPAY ==
[2024-11-20 08:14] VITALS: BP 127/70; PULSE 72; RESP 20; TEMP 36.8; O2SAT 100
[2024-11-20 08:22] LABS: EDUAAPPEAR Clear; EDUABILI Negative (Negative); EDUABLOOD Negative (Negative); EDUACOLOR1 Yellow; EDUAGLUCOSE Negative (Negative); EDUAKETONE Negative (Negative); EDUALEUKO Trace (Negative); EDUANITRATE Negative (Negative); EDUAPROTEIN Negative (Negative); EDUASPGRAVITY 1.015; EDUAUROBILI 0.2
--- NOTE | 2024-11-20 08:22 | ED_ITS ---
HPI - Female Genitourinary General Chief complaint: Urogenital-Female Stated complaint: UTI Time Seen by Provider: 11/20/24 08:22 Source: patient Mode of arrival: ambulatory Limitations: no limitations History of Present Illness HPI Narrative: 29-year-old female presents complaint urinary frequency, urgency, dysuria, decreased output for 2 days. Three weeks . Afebrile. No abdominal /back pain. Denies nausea vomiting. All systems reviewed and negative except as noted above. Related Data Home Medications ?Medication ?Instructions ?Recorded ?Confirmed ?Last Taken ?Type polyethylene glycol 3350 17 17 g PO DAILY PRN Constipation 08/14/23 11/01/24 Unknown History gram/dose oral powder (Miralax) calcium carbonate (Tums) 200 mg PO QID PRN Indigestion 01/06/24 11/01/24 10/28/24 History cholecalciferol (vitamin D3) 100 100 mcg PO DAILY 08/16/24 11/01/24 10/31/24 History mcg (4,000 unit) tablet docosahexaenoic acid 200 mg 200 mg PO DAILY 08/16/24 11/01/24 10/31/24 History capsule ( DHA) famotidine 10 mg tablet (Pepcid AC) 10 mg PO BID PRN heartburn 10/14/24 11/01/24 10/31/24 History Allergies Allergy/AdvReac Type Severity Reaction Status Date / Time amoxicillin Allergy Mild hives Verified 11/20/24 08:19 clavulanic acid Allergy Mild HIVES Verified 11/20/24 08:19 Review of Systems Review of Systems: CONSTITUTIONAL: Denies fever, chills, or sweats. EYES: Denies visual changes, redness, or discharge. ENT: Denies rhinorrhea, congestion, sore throat, or otalgia. CARDIOVASCULAR: Denies chest pain, palpitations, or edema. RESPIRATORY: Denies cough or dyspnea. GASTROINTESTINAL: Denies abdominal pain, nausea, vomiting, or diarrhea. GENITOURINARY: Reports dysuria, frequency, urgency. Denies hematuria. SKIN: Denies rash or itching. MUSCULOSKELETAL: Denies back pain, joint pain, or myalgia. NEUROLOGIC: Denies headache, numbness, or weakness. PSYCHIATRIC: Denies anxiety or depression. All other systems reviewed are negative, except as documented in HPI. [facility] Past Medical History Medical History History of PCOS PIH ( induced hypertension) Pyelonephritis UTI (urinary tract infection) Surgical History Surgical History History of adenoidectomy History of laparoscopic cholecystectomy 01/12/24 History of tonsillectomy Family History Family History Father Diabetes mellitus Mother Alive and well Grandparent Colon cancer Grandparent Breast cancer in female Social History Social History Social History: Caffeine- coffee/soda Smoking status: Never smoker Second hand tobacco smoke exposure: No Alcohol intake: never Substance use: never Substance use type: does not use Do You Feel Safe in your Home?: Yes Lack of Transportation: No Lack of Food: Never True Current Housing: I Have Housing Concerned About Future Housing: No Difficulty Paying Gas/Electric Bills: No Difficulty Paying for Meds: No Currently Unemployed: No Education: Associate Degree Difficulty w/ Childcare or Family Care: No Living arrangements: with family Occupation/Education: unemployed Gender identity (if verbalized by the patient): Female Sexual Orientation (if Verbalized by the Patient): Straight or Heterosexual Spiritual care concerns: No Comments At time of signature, agree with nursing past medical, surgical, social and family history. There is no relevant family history pertinent to the presenting complaint. Exam Narrative: GENERAL: This is a well-nourished, well-developed patient, in no apparent distress. HEAD: normocephalic, atraumatic. EYES: PERRL. Sclera clear/white. Vision is grossly intact. EARS: External ears normal NOSE: External nose normal NECK: Neck supple, non-tender without lymphadenopathy, masses or thyromegaly. CARDIOVASCULAR: Regular rate and rhythm without murmurs, gallops, or rubs. RESPIRATORY: Clear to auscultation. Breath sounds equal bilaterally. No wheezes, rales, or rhonchi. SKIN: warm, Dry, intact with no suspicious lesions or rash, good texture and turgor. NEURO: awake, alert, and oriented to person, place and time. There were no obvious focal neurologic abnormalities. EXTREMITIES: No joint tenderness, effusion, or edema noted. Course Course Level of Care: Express Care Visit Vital Signs Vital signs: Vital Signs Temperature 36.8 C 11/20/24 08:14 Pulse Rate 72 11/20/24 08:14 Respiratory Rate 20 11/20/24 08:14 Blood Pressure 127/70 11/20/24 08:14 Pulse Oximetry 100 11/20/24 08:14 Oxygen Delivery Room Air 11/20/24 08:14 Temperature 36.8 C 11/20/24 08:14 Pulse Rate 72 11/20/24 08:14 Respiratory Rate 20 11/20/24 08:14 Blood Pressure 127/70 11/20/24 08:14 Pulse Oximetry 100 11/20/24 08:14 Oxygen Delivery Room Air 11/20/24 08:14 reviewed MDM - Female Genitourinary MDM Narrative Medical decision making narrative: urinalysis trace leukocytes. Will treat treat patient with antibiotic due to patient's. Urine culture ordered Please be advised this is a medical document. It is intended for [id number] communication. It is written in medical language and may contain unfamiliar abbreviations or verbiage. Medical documents are intended to carry relevant information, facts as evident, and the clinical opinion of the practitioner at the time of the encounter. This report may have been done utilizing a voice recognition system. Attempts have been made to correct errors. However, there may be uncorrected grammatical, spelling, and recognition errors present. The file time of this note does not necessarily represent the time of service. Differential Diagnosis Differential diagnosis: Likely urinary tract infection Lab Data Labs: Lab Results 11/20/24 Range/Units 08:14 POC Urine Color Yellow POC Urine Clarity Clear POC Urine pH 6.0 POC Ur Specif [place] 1.015 POC Urine Protein Negative (Negative) POC Ur Glucose (UA) Negative (Negative) POC Urine Ketones Negative (Negative) POC Urine Blood Negative (Negative) POC Urine Nitrite Negative (Negative) POC Urine Bilirubin Negative (Negative) POC Urine Urobilinogen 0.2 POC U Leukocyte Esteras Trace (Negative) Discharge Plan Discharge Clinical Impression: Urinary tract infection Patient Disposition: Home, Self-Care Condition: Stable Instructions: Antibiotic Form, Urinary Tract Infection in Women (ED) Additional Instructions: take antibiotic as prescribed until gone. May take [id number] azo as directed on packaging to treat urinary symptoms. Drink at least 64 oz of water a day. See your doctor if symptoms are not improving. If you have severe pain, fever, vomiting go to the ER. Patient Language: Martiniquais Prescriptions: New sulfamethoxazole-trimethoprim [Bactrim DS] 800-160 mg tablet 1 tablet PO Q12H 3 Days Qty: 6 0RF No Action polyethylene glycol 3350 [Miralax] 17 gram/dose powder 17 g PO DAILY PRN (Reason: Constipation) DHA 200 mg capsule 200 mg PO DAILY cholecalciferol (vitamin D3) 100 mcg (4,000 unit) tablet 100 mcg PO DAILY famotidine [Pepcid AC] 10 mg tablet 10 mg PO BID PRN (Reason: heartburn) polysaccharide iron complex 150 mg iron Capsule 150 mg PO BIDWM Qty: 60 1RF calcium carbonate [Tums] 200 mg calcium (500 mg) Tablet,Chewable 200 mg PO QID PRN (Reason: Indigestion) Follow-up/Referrals: Sue Tejeda [facility] [Primary Care Provider] - Time of Disposition: 08:28
== END 2024-11-20 08:35 | disposition home or self-care (01) ==
PROVIDERS: Emergency Provider Nurse Practitioner Family; PCP Nurse Practitioner
DX: N39.0 Urinary tract infection, site not specified (principal); E28.2 Polycystic ovarian syndrome
CPT/HCPCS: 81003; 87086; 99213; G0463

== ENCOUNTER 2025-01-27 14:30 | Outpatient (CLI) | payer OTHER, SELFPAY ==
--- NOTE | ~2025-01-27 | XR_ITS ---
XR abdomen/kub 1V 01/27/2025 14:45 INDICATION: Abdominal pain TECHNIQUE: KUB COMPARISON: 01/15/2024 FINDINGS: Bowel gas pattern is normal. There is no evidence of free air, mass, organomegaly, ascites or obstruction. No abnormal calculi are seen. There are pelvic phleboliths. There are cholecystecto my clips. The bones appear intact. IMPRESSION: 1: No acute abdominal abnormality identified. Reviewed, dictated and finalized at location B.
== END 2025-01-27 14:31 | disposition home or self-care (01) ==
LOC: GOSHIMG 14:30
PROVIDERS: PCP Nurse Practitioner; Visit Provider Nurse Practitioner
DX: R10.9 Unspecified abdominal pain (principal)
CPT/HCPCS: 74018

== ENCOUNTER 2025-03-01 11:55 | Outpatient (CLI) | payer OTHER, SELFPAY ==
[2025-03-01 13:43] LABS: Vitamin D 25 Hydroxy 28.6 ng/mL
== END 2025-03-01 11:56 | disposition home or self-care (01) ==
LOC: ANHLAB 11:57
PROVIDERS: PCP Nurse Practitioner; Visit Provider Obstetrics & Gynecology Gynecology
DX: E55.9 Vitamin D deficiency, unspecified (principal)
CPT/HCPCS: 36415; 82306

== ENCOUNTER 2025-07-29 11:55 | Outpatient (CLI) | payer OTHER, SELFPAY ==
--- OUTSIDE RECORDS SUMMARY | 2025-07-29 11:58 | XMS_ITS | Data Portability ---
Author Organization [place] [facility], Main Office Address [address] [place] [address] Care Team Providers Care Merchandising Specialist Name Role Phone Unavailable Referring Provider Unavailable [...] Medication Orders Lido5% /Dilt2 % 023 06/10/20 23 [facility], [address], [place], [place], [id number], 11:52:00 Patient TargetsNo targets recorded. Patient Instructions [...] today's visit I spent a total of 35 minutes prepping for her visit (reviewing shared records), [id number] with her and documenting. Not available 06/15/2023 08:37:58 07/24/2023 She will f/u wit h me in 6 - 8 weeks and I will retreat her RP and LL and try to treat her RA internal hemorrhoids. We will probably do a 3rd treatment about 8 weeks after that. On today's visit I spent a total of 25 minutes prepping for her visit (reviewing past and shared records), [id number] with her and documenting. 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 Active 2022 Sofia Wetzel MD [address] [place] [address],[address] [place] [address], [phone], [facility] 14:10:13 Constipation 11459140 Active 2022 Sofia Wetzel MD [address] [place] [address],[address] [place] [address], [phone], [facility] 14:08:08 Pile easily reducible 057291836 Active 202206/10/23: No tx - tx fissure Tx #1: 07/24/23 1.2 x 8 RP and 1.2 x 6 LL Tx #2: 09/18/23 1.2 x 5 RP, x 4 LL and x 4 RA Sofia Wetzel MD [address] [place] [address],[address], [place], [address], [facility] 06:29:20 Problem Notes None recorded. Procedures Surgical History Date Name Laterality Status Provider Name and Address Organization Details Recorded Time 09/18/19 24 [place] [address] [place] [address],[address], [place], [address], [facility] 11/25/2023 06:27:18 07/24/20 23 IRC completed Sofia Wetzel MD [address] [place] [address],[address], [place], [phone], [facility] 07/25/2023 14:04:11 09/08/19 23 Date of Last Pap Smear [facility] 06/10/2023 16:02:32 06/29/20 06 Tonsillectomy completed Sofia Wetzel MD [address] [place] [address],[address], [place], [address], [facility] 06/14/2023 16:12:41 Imaging Results None recorded. Procedure Notes None recorded. Medical Equipment None Reported. Allergies Allergen ID Allergen Name Allergen Category Reaction Reaction Severity Criticality Documentation Date Start Date Code Code System Note Provider Name and Address Organization Details Recorded Time 9212 Augmentin medicatio n Not available Not available Not available 06/10/2023 99115 2 RxNorm ALETA PASCUAL [facility] 15:54:09 Medications Name Sig Start Date Stop Date Status Note LastModified by Organization Details LastModified Time lidocaine 5%/diltiaze m 2% #79152 5%/2% cream Apply pea-sized AMOUNT TO anal opening with finger TIP as directed UP TO FIVE times daily NEEDED active Not Available Not Available No t Available Lido5%/Dilt 2% Apply pea-sized amount to anal opening with finger tip as directed up to 5 times daily prn 2022 active Not Available Not Available Not Avai lable valacyclovi r 500 mg tablet TAKE 1 [...] Tobacco Smoking Status Never Smoker ALETA PASCUAL [facility] 06/10/2023 16:01:49 Alcohol Use No Information not available 06/10/2023 Caffeine Use Yes [email or web address] Information not available 06/10/2023 Caffeine Type Coffee Informatio n not available 06/10/2023 Caffeine Amount 200mg [email or web address] Information not available 06/10/2023 Illicit Drug Use No [email or web address] Information not available 06/10/2023 What Was The Date Of Your Most Recent Tobacco Screening? 09/18/2023 [email or web address] Information not available 09/18/2023 Sex: Unknown Functional Status Question Answer Note LastModified by Organization D etails LastModified Time Do you or have you ever used any other forms of tobacco or nicotine? No [email or web address] Information not available 06/10/2023 Mental Status None recorded. Family History Relationship Description Onset Age of this Age Resolved Age Notes LastModified by Organization Details LastModified Time Maternal Grandmother Malignant neoplasm of colon 55 80 [email or web address] Not available 11/2022 16:00:53 Maternal Grandmother Hypertensive disorder 60 [email or web address] Not available 11/2022 16:01:21 Unspecified Relation Malignant neoplasm of colon 55 80 matern al great grandm a [id number] Not available 06/10/2023 16:00:53 Paternal Grandmother Malignant neoplasm of breast 70 [email or web address] Not available 11/2022 16:01:10 Maternal Grandfather Diabetes mellitus 80 [email or web address] Not available 11/2022 16:01:31 Father No current [...] Prolapse N Pulmonary Embolism N Hernia N Hypothyroidism N Glaucoma N Deep Vein Thrombosis N Cardiac Dysrhythmia [...] Diagnosis SNOMED-CT Code Diagnosis ICD10 Code Diagnosis IMO Codes Diagnosis Note 21525 Sofia Wetzel MD Main Office [address] [facility] [address] [place] [address] 06/10/2023 15:21:44 06/10/2023 16:35:42 Chronic anal fissure 638204423 K60.1 I discussed fissures with her. I [...] dose works to maintain daily and soft ([place] Scale type 4) BM's, she should take it daily and forever. External hemorrhoids 239 [address]60 K64.4 I discussed hemorrhoid s in general [...] Sofia Wetzel MD Main Office [address] [address] 07/24/2023 15:05:22 07/24/2023 15:47:46 Pile easily reducible 498781609 K64.1 Stage 2 internal hemorrhoid s: I [...] LL internal hemorrhoid s. External hemorrhoids 239 43516 K64.4 These will improve with IRC. She understand s the only way to directly treat external hemorrhoid s would be with a surgical excision. She does not wish to pursue this and her hemorrhoid s are not bad enough to warrant surgery. She should continue using the moist baby wipes. She did change to a gentle soap. Chronic anal fissure 197 332439 K60.1 This is much better with the [...] days before and after every treatment. Constipation 11378608 K5 9.00 She of course needs to consistent ly eat a high fiber diet and drink plenty of water. I advised that she continue the Bene Fiber and Miralax at whatever dose works to maintain daily and soft ([place] Scale type 4) BM's. She is currently doing well with 1/2 - 1 tsp of Bene Fiber and 3 tsps of Miralax daily. She should take these daily and forever. Sofia Wetzel MD Main Office [address] [facility] [place] [address] 09/18/2023 15:08:21 09/18/2023 15:40:02 Pile easily reducible 608748324 K64.1 Stage 2 internal hemorrhoid s: She has done well with IRC. Her 2nd and final treatment was done today on all 3 internal hemorrhoid s. External hemorrhoids 239 63350 K64.4 These have improved with IRC. She understand s the only way to directly treat external hemorrhoid s would be with a surgical excision. She does not wish to pursue this and her hemorrhoid s are not bad enough to warrant surgery. She should continue using the moist baby wipes. She did change to a gentle soap. Chronic anal fissure 197 419509 K60.1 This has healed with the compound, treating her constipati on and also treating her hemorrhoid s. I discussed with her again that even if the fissure heals completely it is always a weak area and can become recurrent. She should keep the compound on hand to use if she has these recurrent problems. Constipation 59655074 K5 9.00 She of course needs to consistent ly eat a high fiber diet and drink plenty of water. I advised that she continue the Bene Fiber and Miralax at whatever dose works to maintain daily and soft ([place] Scale type 4) BM's. She is currently doing well with 1/2 - 1 tsp of Bene Fiber and 3 tsps of Miralax daily. She should take these daily and forever. Health Concerns Section Related Observation LastModified by Organization Detai ls LastModified Time None Recorded Concern Status LastModified by Organization Details LastModified Time None Recorded Advance Directives Directive None Recorded Payers Insurance Date Sequence Insurance Name Policy Number Policy Moreno Covered Member ID Moreno Member ID Guarantor Name 11/25/2023 1 [facility] [id number] Bandar Arvizu [place] [id number] [facility] Notes Date Note Type Note Provider Name and Address Organization Details Recorded Time 06/10/2023 text/html ROS as noted in the HPI This is a very pleasant 27 year [...] are daily. They are not always soft ([place] Scale type 3 - occasionally type 4). She tries to consistently eat a high fiber diet and drink plenty of water. Sofia Wetzel MD [address], [place], [address], [facility] 06/15/2023 08:45:37 07/24/2023 text/html Follow up: She did get the compound and [...] daily. Her BM's are daily and soft ([place] Scale type 4). Even if her BM [...] are daily. They are not always soft ([place] Scale type 3 - occasionally type 4). She tries to consistently eat a high fiber diet and drink plenty of water. Sofia Wetzel MD [address], [place], [address], [facility] 07/25/2023 14:11:42 09/18/2023 text/html She had no problem with the first treatment and she has [...] daily. Her BM's are daily and soft ([place] Scale type 4). Even if her BM [...] are daily. They are not always soft ([place] Scale type 3 - occasionally type 4). She tries to consistently eat a high fiber diet and drink plenty of water. Sofia Wetzel MD [address] [facility], [place], [address], [facility] 11/25/2023 06:29:42 OBGyn Episode No OBEpisode recorded.
--- OUTSIDE RECORDS SUMMARY | 2025-07-29 11:58 | XMS_ITS | Clinical Summary ---
Author Organization [facility] [employer] Address [address] [place] [place] [address] Care Team Providers Care Senior Project Accountant Name Role Phone Unavailable Primary Care Provider Unavailabl e Source Comments [facility] [employer],non-owned Affiliates and Associated Physician Practices is amultiple site organization consisting of ambulatory clinics and hospital sitesin [place], [place], [place] and [place]. This disclosure is being madepursuant to the Care Everywhere program and may not contain all information available regarding this patient. Last updated [employer] Allergies Active Allergy Reactions Criticality Noted Date Comments Augmentin Urticaria Medium 04/20/2019 Social History Tobacco Use Types Packs/Day Years Used Date Smoking Tobacco: Never Assessed Comments Unknown Sex and Gender Information Value Date Recorded Sex Assigned at Not on file Legal Sex Female 11:38 AM CDT Gender Identity Not on file Sexual Orientation Not on file Plan of Treatment Health Maintenance Due Date Last Done Comments HIV SCREENING 2011 HEPATITIS C SCREENING 06/25/2014 DTAP/TDAP/TD VACCINES (1 - Tdap) 2015 HEPATITIS B VACCINE (1 of 3 - 19+ 3-dose series) 2015 PAP SMEAR 2017 HPV VACCINE (1 - 3-dose SCDM series) 2023 DEPRESSION SCREENING 09/08/2024 COVID-19 VACCINE (1 - 2024-2 6 season) 2025 INFLUENZA VACCINE (#1) 2025 ZOSTER VACCINE (1 of 2) 2046 HIB VACCINE Aged Out No longer eligi ble based on patient's age to complete this topic MENINGOCOCCAL (Group B) VACC INE SHARED DECISION-MAKING Aged Out No longer eligibl e based on patient's age to complete this topic MENINGOCOCCAL GROUPS A/C/Y/W VACCINE Aged Out No longer eligible b ased on patient's age to complete this topic PNEUMOCOCCAL VACCINE Aged Out No long er eligible based on patient's age to complete this topic Insurance * Guarantor: PATRICIA COLON Account Type Relation to Patient Date of Phone Billing Address Personal/Family [address] SELF PAY NO INSURANCE Member Subscriber Plan / Payer (Ef fective for All Dates) Name:Patricia Colon Member ID:Not on file Relation to Subscriber:Not on file Name:DARIUSZ COLONLEY Subscriber ID:Not on file Address: [address] [place] [address] Payer ID:Not on file Group ID:Not on file Type:Self Pay Address: [facility] * Guarantor: PATRICIA COLON Account Type Relation to Patient Date of Phone Billing Address Personal/Family [address] [place] [address] SELF PAY NO INSURANCE Member Subscriber Plan / Payer (Ef fective for All Dates) Name:Patricia Colon Member ID:Not on file Relation to Subscriber:Not on file Name:PATRICIA COLON Subscriber ID:Not on file Address: [place] [phone] Payer ID:Not on file Group ID:Not on file Type:Self Pay Address: [facility] * Guarantor: COLONPATRICIA Account Type Relation to Patient Date of Phone Billing Address Personal/Family [address] [place] [phone] SELF PAY NO INSURANCE Member Subscriber Plan / Payer (Ef fective for All Dates) Name:Patricia Colon Member ID:Not on file Relation to Subscriber:Not on file Name:PATRICIA COLON Subscriber ID:Not on file Address: [place] [address] Payer ID:Not on file Group ID:Not on file Type:Self Pay Address: [facility]
[2025-07-29 12:15] LABS: Hematocrit 40.8 % (37.0-47.0); Hemoglobin 12.7 g/dL (12.0-15.0); Mean Corpuscular HGB Conc 31.1 g/dl (32-36); Mean Corpuscular Hemoglobin 25.7 pg (26-34); Mean Corpuscular Volume 82.4 fl (80-100); Platelet Count Result 310 k/mm3 (150-375); Red Blood Count 4.95 M/mm3 (4.2-5.4); White Blood Count 7.3 K/mm3 (4.5-10.0)
[2025-07-29 12:33] LABS: Alanine Aminotransferase 18 U/L (6-35); Albumin Level 4.6 g/dL (3.5-5.1); Alkaline Phosphatase 89 U/L (38-126); Anion Gap 7 mmol/L (4-12); Aspartate Amino Transferase 15 U/L (14-36); Bilirubin,Total 1.1 mg/dL (0.2-1.3); Blood Urea Nitrogen 9 mg/dL (7-17); Calcium 9.4 mg/dL (8.4-10.2); Carbon Dioxide 28 mmol/L (22-30); Chloride 103 mmol/L (98-107); Estimated Glomerular Filt Rate > 60; Glucose 88 mg/dL (65-110); Potassium 4.1 mmol/L (3.4-5.0); Sodium 138 mmol/L (137-145); Total Protein 8.1 g/dL (6.3-8.2)
[2025-07-29 12:47] LABS: Beta HCG Quantitative < 2.39 mIU/ML
[2025-07-29 12:48] LABS: Free T4 Free Thyroxine 1.21 ng/dL (0.78-2.19)
[2025-07-29 13:01] LABS: Thyroid Stimulating Hormone 2.510 uIU/mL (0.465-4.680)
[2025-07-29 13:21] LABS: Vitamin B12 432.0 pg/mL (239-931)
[2025-07-29 13:50] LABS: Hemoglobin A1C 5.1 % (<5.7)
== END 2025-07-29 11:56 | disposition home or self-care (01) ==
LOC: ANHLAB 11:57
PROVIDERS: PCP Family Medicine; Visit Provider Obstetrics & Gynecology Gynecology
DX: N93.8 Other specified abnormal uterine and vaginal bleeding (principal)
CPT/HCPCS: 36415; 80053; 82306; 82607; 83036; 84439; 84443; 84702; 85027

== ENCOUNTER 2025-08-03 11:17 | Outpatient (CLI) | payer OTHER, SELFPAY ==
--- NOTE | ~2025-08-03 | US_ITS ---
EXAMINATION: US pelvic complete, 08/03/2025 11:20 FILLER ROOM ATTENDANT HISTORY: Pelvic pain Comparison: None Technique: Coyle-scale and color Doppler images were obtained. Findings: Uterus: Uterus anteverted 8.7 x 4.1 x 5.5 cm. . Endometrium 8 mm. Right Ovary:Right ovary 2 x 2.1 x 2.2 cm, no adnexal mass, normal flow. Left Ovary: Left ovary 2.6 x 1.8 x 2.6 cm, no adnexal mass, normal flow Free Fluid: None Impression: No acute abnormality. Reviewed, dictated and finalized at location P. ER ROOM ATTENDANT Impression: No acute abnormality.
== END 2025-08-03 11:18 | disposition home or self-care (01) ==
PROVIDERS: PCP Family Medicine
DX: N93.8 Other specified abnormal uterine and vaginal bleeding (principal)
CPT/HCPCS: 76856